=== PATIENT | female | born 1955 | race Caucasian/White ===

== ENCOUNTER 2022-10-17 11:32 | Outpatient (REF) | payer OTHER, SELFPAY ==
--- NOTE | ~2022-10-17 | XR_ITS ---
EXAMINATION: XR hand LT min 3V, XR hand RT min 3V CLINICAL INFORMATION: Pain COMPARISON: None TECHNIQUE: 3 views of the bilateral hands FINDINGS: RIGHT HAND: No fracture or dislocation. Joint spaces are maintained. No cortical erosion. Soft tissues are unremarkable. LEFT HAND: No fracture or dislocation. Joint spaces are maintained. No cortical erosion. Soft tissues are unremarkable. XR/XR hand RT min 3V IMPRESSION: No acute osseous abnormality.
--- NOTE | ~2022-10-17 | XR_ITS ---
EXAMINATION: XR BILATERAL KNEES CLINICAL INFORMATION: Reason for Exam CHRONIC PAIN COMPARISON: None TECHNIQUE: 3 views of the bilateral knees FINDINGS: RIGHT KNEE: No acute fracture or dislocation. Mild to moderate degenerative changes of the knee with borderline loss of medial compartment joint space and quadriceps tendon enthesopathy. No joint effusion. Soft tissues are unremarkable. LEFT KNEE: No acute fracture or dislocation. Mild to moderate degenerative changes of the knee with borderline loss of medial compartment joint space and quadriceps tendon enthesopathy. No joint effusion. Soft tissues are unremarkable. XR/XR knee LT 3V IMPRESSION: * No acute osseous abnormality. * Mild to moderate degenerative changes of the knees.
--- NOTE | ~2022-10-17 | XR_ITS ---
EXAMINATION: XR LUMBOSACRAL SPINE CLINICAL INFORMATION: Reason for Exam LOW BACK PAIN RT SIDED SCIATICA COMPARISON: None TECHNIQUE: 3 views of the lumbar spine FINDINGS: 5 nonrib-bearing lumbar-type vertebral bodies. Vertebral body heights are maintained. Alignment is maintained. Multilevel degenerative disc disease worst at L5-S1 where there is mild to moderate loss of disc space height and facet arthropathy. Atherosclerotic calcifications of the abdominal aorta. XR/XR lumbar spine 2-3V IMPRESSION: * Mild to moderate spondylosis of the lumbar spine, as above detailed. * No significant spondylolisthesis.
--- NOTE | ~2022-10-17 | XR_ITS ---
EXAMINATION: XR BILATERAL KNEES CLINICAL INFORMATION: Reason for Exam CHRONIC PAIN COMPARISON: None TECHNIQUE: 3 views of the bilateral knees FINDINGS: RIGHT KNEE: No acute fracture or dislocation. Mild to moderate degenerative changes of the knee with borderline loss of medial compartment joint space and quadriceps tendon enthesopathy. No joint effusion. Soft tissues are unremarkable. LEFT KNEE: No acute fracture or dislocation. Mild to moderate degenerative changes of the knee with borderline loss of medial compartment joint space and quadriceps tendon enthesopathy. No joint effusion. Soft tissues are unremarkable. XR/XR knee RT 3V IMPRESSION: * No acute osseous abnormality. * Mild to moderate degenerative changes of the knees.
--- NOTE | ~2022-10-17 | XR_ITS ---
EXAMINATION: XR hand LT min 3V, XR hand RT min 3V CLINICAL INFORMATION: Pain COMPARISON: None TECHNIQUE: 3 views of the bilateral hands FINDINGS: RIGHT HAND: No fracture or dislocation. Joint spaces are maintained. No cortical erosion. Soft tissues are unremarkable. LEFT HAND: No fracture or dislocation. Joint spaces are maintained. No cortical erosion. Soft tissues are unremarkable. XR/XR hand LT min 3V IMPRESSION: No acute osseous abnormality.
== END 2022-10-17 11:33 | disposition home or self-care (01) ==
LOC: HO.XRAY 11:32
PROVIDERS: PCP Internal Medicine; Visit Provider Family Medicine
DX: M25.561 Pain in right knee (principal); M25.562 Pain in left knee; G89.29 Other chronic pain; M54.41 Lumbago with sciatica, right side; M79.641 Pain in right hand; M79.642 Pain in left hand
CPT/HCPCS: 72100; 73130; 73562

== ENCOUNTER 2022-12-14 14:44 | Outpatient (REF) | payer OTHER, SELFPAY ==
--- NOTE | ~2022-12-14 | XR_ITS ---
EXAMINATION: XR KNEE AP STANDING CLINICAL INFORMATION: Pain COMPARISON: Previous x-ray from September 2022 TECHNIQUE: AP bilateral standing view of the knees was obtained. FINDINGS: Bone alignment is normal. No fracture or dislocation. Mild bilateral medial femoral tibial joint space narrowing.. Normal soft tissues. XR/XR knee standing BI IMPRESSION: Mild medial joint space narrowing bilaterally.
== END 2022-12-14 14:45 | disposition home or self-care (01) ==
LOC: HO.HOSX 14:44
PROVIDERS: Visit Provider Physician Assistant
DX: M23.91 Unspecified internal derangement of right knee (principal); M23.92 Unspecified internal derangement of left knee; M54.16 Radiculopathy, lumbar region
CPT/HCPCS: 20610; 73565; 99202; J1040

== ENCOUNTER 2023-02-02 10:48 | Outpatient (REF) | payer OTHER, SELFPAY ==
--- NOTE | ~2023-02-02 | MM_ITS ---
EXAMINATION: MM SCREENING DIGITAL BREAST TOMOSYNTHESIS, BILATERAL CLINICAL INFORMATION: Screening. Asymptomatic. Prior history reduction mammoplasty. Benign right stereotactic biopsy 08/02/2016. The lifetime risk of breast cancer based on the Tyrer-Cuzick Model is 5%. COMPARISON: Mammography: 04/19/2018, 01/31/2017, 08/02/2016, 07/05/2016 TECHNIQUE: Digital breast tomosynthesis is performed in both the craniocaudal and mediolateral oblique views along with computer-aided detection (CAD). Synthesized 2D images are generated from the tomosynthesis. FINDINGS: There are scattered areas of fibroglandular density (ACR BI-RADS breast composition Category b). There is minor scarring and some scattered benign round rim predominantly dermal calcifications lower breast consistent with the reduction mammoplasty. There is a biopsy clip marker again seen mid upper outer quadrant right breast adjacent to a small stable nodule (complex fibroadenoma with benign proliferative changes and pathology). Scattered small fibronodular densities are similar to prior exams. No significant mass. No architectural abnormality. The axilla are unremarkable. MM/MM tomosynthesis screening BI IMPRESSION: No mammographic evidence of malignancy. ASSESSMENT: BI-RADS 2: Benign RECOMMENDATION: Routine annual mammography screening. This patient's information was entered into a reminder system with a target due date for their next mammogram.
== END 2023-02-02 10:49 | disposition home or self-care (01) ==
LOC: HO.MAMMO 10:48
PROVIDERS: PCP Internal Medicine; Visit Provider Internal Medicine
DX: Z12.31 Encounter for screening mammogram for malignant neoplasm of breast (principal)
CPT/HCPCS: 77063; 77067

== ENCOUNTER 2023-08-15 10:48 | Outpatient (REF) | payer OTHER, SELFPAY ==
[2023-08-15 12:14] LABS: Cholesterol 197 mg/dL (<200); HDL Cholesterol 42 mg/dL (>40); LDL Cholesterol Calculated 99 mg/dL (<100); Triglycerides 280 mg/dL (<150)
[2023-08-15 14:14] LABS: Reflex LDLD? No
== END 2023-08-15 10:49 | disposition home or self-care (01) ==
LOC: HO.HHCL 10:48
PROVIDERS: Visit Provider Internal Medicine
DX: E78.2 Mixed hyperlipidemia (principal); E03.9 Hypothyroidism, unspecified
CPT/HCPCS: 36415; 80061; 84443

== ENCOUNTER 2023-10-03 10:51 | Outpatient (AMB) | payer OTHER, SELFPAY ==
--- NOTE | 2023-10-03 10:57 | A.OFFVIS_ITS ---
Intake Vital Signs 10/03/23 11:07 Height 5 ft Weight 220 lb BMI 43.0 BP 112/64 Blood Pressure Location Lt brachial Position Sitting Pulse 88 Intake Visit Reasons: Colonoscopy Screening Intake Note: Patient new consult for 2nd pre colonoscopy screening. Patient cc: constipation on and off. Denies any other GI issues. Wind Energy Technician Required: No Accompanied by: Self / Same As Patient Allergies morphine [MORPHINE] Allergy (Unknown, Verified 10/03/23 10:56) ANAPHYLAXIS HPI Colonoscopy Screening HPI Details 68 year old? female with past medical hi story of hypertension, hyperlipidemia, hypothyroidism, vertigo, asthma is here today for pre colonoscopy screening.? Patient was sent to us by her PCP.? Her last colonoscopy was in June of 2018, multiple polyps found. Tubular adenoma found. ? Patient denies any gastrointestinal symptoms in the past or at present.? Patient denies any family history of colorectal cancer.? Denies history of difficulty with sedation or anesthesia in the past.? Negative for history of sleep apnea.? Denies any history of cardiac, renal, pulmonary, or hepatic disease.??Patient has a history of asthma and is using her EF inhaler as needed. No history of infectious? diseases like hepatitis A, B, C, HIV or tuberculosis.? Patient is not on any anticoagulation therapy. [facility] Medical History (Updated 10/03/23 @ 11:16 by Kelli Currie [facility]) Vertigo Asthma Hypercholesteremia Hypothyroidism (acquired) HTN (hypertension) Surgical History (Updated 10/03/23 @ 11:11 by Kalyn Hurst) Hx of bilateral breast reduction surgery Hx of section Social History (Updated 10/03/23 @ 10:58 by Kalyn Hurst) Household Members: Family Patient Tobacco Use Status: Former Tobacco user Current occupational status: unemployed Review of Systems Const Denies weight gain and Denies weight loss ENT Reports no additional complaints, Denies dysphagia and Denies odynophagia Card Reports no additional complaints Resp Reports no additional complaints GI Denies abdominal pain, Denies belching, Denies melena, Denies bloating, Denies change in bowel habits, Reports constipation (Occasional), Denies dysphagia, Denies excessive flatus, Denies dyspepsia, Denies heartburn, Denies diarrhea, Denies loose stools, Denies nausea, Denies odynophagia and Denies vomiting Reports no additional complaints Musc Reports no additional complaints Neuro Reports no additional complaints Psych Reports no additional complaints Endo Reports no additional complaints Physical Exam Vital Signs: Last Vital Signs Pulse 88 10/03/23 11:07 BP 112/64 10/03/23 11:07 BMI result Body Mass Index 43.0 Const General: healthy appearing, no acute distress and well developed Nutritional Appearance: well nourished Orientation/consciousness: patient oriented x3 Resp Effort & Inspection: normal respiratory effort, able to speak in complete sentences, no tracheal deviation and symmetric chest movement Auscultation: clear to auscultation bilaterally Cardio Rate: regular rate GI Inspection: Yes normal to inspection and No distended Palpation (GI): Soft to palpation, not firm, nontender and No hepatosplenomegaly present Auscultation: normal bowel sounds General: Yes no CVA tenderness Back/Spine/Pelvis Back: no CVA tenderness Skin General skin exam: elasticity normal, turgor normal and dry skin Neuro General: patient oriented x3 Psych Appearance: grossly normal Mental Status: mental status grossly normal Assessment & Plan Assessment & Plan (1) Screen for colon cancer: Code(s): Z12.11 - Encounter for screening for malignant neoplasm of colon (2) Constipation: Code(s): K59.00 - Constipation, unspecified Qualifiers: Constipation type: slow transit constipation Qualified Code(s): K59.01 - Slow transit constipation Plan Patient denies any GI, cardiac or respiratory symptoms.? Patient however does reports occasional constipation will send script for stool softener. Patient was encouraged to increase fluid intake and activity to promote better bowel motility. Denies any issues with anesthesia in the past.? Denies any history of sleep apnea.? No history infectious diseases in the past or present.? Not on any anticoagulation therapy.? No family or personal history of colon cancer. History of tubular adenoma on colonoscopy in June of 2018.? Patient denies melena, hematochezia, unintentional weight loss or ribbon like stools.? Patient has asthma and was using Flovent only as needed. Patient was instructed to use flovent twice a day as ordered and only use albuterol as needed. Patient can bring albuterol inhaler with her. Discussed at length the pre-procedure,? prep, diet & medications as well as what to expect prior, during and after the procedure.?? Stressed the importance of good bowel prep. ?Recommended the use of Vaseline or Calmoseptine OTC & baby wipes with bowel movements to promote comfort.? ?Patient verbalizes understanding and agrees to plan of care.? She was given the opportunity to ask questions and all questions answered.? We will see her after the procedure.? Medications: New polyethylene glycol 3350 (Miralax) As directed by gastroenterology department at [facility] 238 grams PO ONCE 238 grams 0RF Z12.11 - Encounter for screening for malignant neoplasm of colon bisacodyl (Dulcolax (bisacodyl)) take 4 tabs at noon the day before your colonoscopy 20 mg (4 x 5 mg) PO ONCE 1 day 4 tabs 0RF Z12.11 - Encounter for screening for malignant neoplasm of colon docusate sodium 100 mg PO DAILY 30 caps 3RF K59.00 - Constipation, unspecified Coding Level of Care Code New Pt Level 3 (47883) Diagnoses Screen for colon cancer Z12.11 Slow transit constipation K59.01 Constipation type: slow transit constipation Time Spent (min) 40 Comment 30 minutes spent with patient and additional 10 minutes spent reviewing her records
[2023-10-03 11:07] VITALS: BP 112/64; PULSE 88; BMI 43.0
== END 2023-10-03 12:44 | disposition home or self-care (01) ==
PROVIDERS: PCP Internal Medicine; Visit Provider Nurse Practitioner Family
DX: K59.01 Slow transit constipation (principal); Z12.11 Encounter for screening for malignant neoplasm of colon; Z86.010 Personal history of colon polyps
CPT/HCPCS: 99203

== ENCOUNTER → 2023-10-03 10:51 | Outpatient (BNVA) | payer OTHER, SELFPAY | PROVIDERS: PCP Internal Medicine; Visit Provider Nurse Practitioner Family | DX: Z12.11 Encounter for screening for malignant neoplasm of colon (principal); K59.01 Slow transit constipation | CPT/HCPCS: 99202 ==

== ENCOUNTER 2024-04-25 10:54 | Outpatient (REF) | payer OTHER, SELFPAY ==
--- NOTE | ~2024-04-25 | XR_ITS ---
EXAMINATION: XR ANKLE, RIGHT CLINICAL INFORMATION: Right ankle pain, sprain COMPARISON: None available. TECHNIQUE: AP, lateral, and mortise views of the right ankle. FINDINGS: No acute fracture or malalignment. The ankle mortise is preserved. Lateral soft tissue swelling. XR/XR ankle RT min 3V IMPRESSION: Lateral soft tissue swelling with no fracture. Electronically signed by: José Manuel Motta MD 05/01/2024 11:25 AM EDT
== END 2024-04-25 10:55 | disposition home or self-care (01) ==
LOC: HO.HHCX 10:54
PROVIDERS: Visit Provider Internal Medicine
DX: S93.491A Sprain of other ligament of right ankle, initial encounter (principal)
CPT/HCPCS: 73610

== ENCOUNTER 2024-08-04 22:26 | Emergency (ER) | payer OTHER, SELFPAY ==
--- NOTE | ~2024-08-04 | XR_ITS ---
EXAMINATION: XR CHEST CLINICAL INFORMATION: SOB COMPARISON: January 28, 2019. TECHNIQUE: 2 views of the chest were obtained. FINDINGS: The cardiomediastinal silhouette is stable. There are linear opacities at both lung bases. The lungs are otherwise clear. There are no significant pleural effusions. The bony structures and the soft tissues are unremarkable. 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 No other significant abnormality seen. Electronically signed by: Arron Matthew MD 08/05/2024 12:46 AM [facility]
--- NOTE | 2024-08-04 22:36 | ECG_ITS ---
Test Reason : SOB Blood Pressure : / mmHG Vent. Rate : 080 BPM Atrial Rate : 080 BPM P-R Int : 206 ms QRS Dur : 096 ms QT Int : 398 ms P-R-T Axes : 042 013 081 degrees QTc Int : 459 ms Normal sinus rhythm Incomplete right bundle branch block Nonspecific ST abnormality Abnormal ECG When compared with ECG of 12-NOV-2017 18:04, No significant change was found Referred By: Generic ED Physician Electronically Signed By:ALYCIA HINES MD
[2024-08-04 22:47] VITALS: BP 148/65; BP 150/70; PULSE 79; PULSE 82; RESP 14; TEMP 36.9; O2SAT 93; O2SAT 96; BMI 35.4
[2024-08-04 22:48] LABS: Basophils Absolute Auto 0.1 X10*3/uL (0.0-0.2); Basophils Percent Auto 0.5 % (0-2); Lymphocytes Percent Auto 36.4 % (20-40); Monocytes Percent Auto 5.9 % (2-11); SCAN SMEAR FLAG 1
[2024-08-04 22:52] LABS: VBG Base Excess 2.9 mmol/L; VBG HCO3 28 mmol/L (22-26); VBG pCO2 48 mmHg; VBG pH 7.37 (7.32-7.43); VBG pO2 64 mmHg
--- NOTE | 2024-08-04 22:52 | ED.GENADULT ---
HPI - General Adult General Chief complaint: Dyspnea Stated complaint: asthma exacerbation on duo neb Time Seen by Provider: 08/04/24 22:52 History of Present Illness ED Provider: Joni BANSAL narrative: The patient is a 69-year-old female with a history of asthma. She has been feeling increasing respiratory symptoms over the last 5 days. She has had increasing cough and wheezing. She is not certain if she has had a fever but she has had some episodes of sweats. She lives on the 3rd floor. Today she had to go down to the 1st floor to meet someone of the door. She then tried to go back up to her apartment on the 3rd floor but by the time she got to the 2nd floor she was so short of breath she had to knock on someone's apartment on the 2nd floor. They called an ambulance and she was brought to the hospital. She received a bronchodilator treatment from paramedics with improvement in her symptoms. She says that after going up the flight of stairs to the 2nd floor she was extremely short of breath and was afraid that she would not to be able to breathe at all. Related Data Home Medications ?Medication ?Instructions ?Recorded ?Confirmed amlodipine 5 mg tablet 5 mg PO DAILY 12/14/22 cetirizine 10 mg tablet 10 mg PO DAILY PRN allergies 12/14/22 fluticasone propionate 220 2 puff inhalation BID 12/14/22 mcg/actuation HFA aerosol inhaler (Flovent HFA) fluticasone propionate 50 spray intranasal 12/14/22 mcg/actuation nasal spray,suspension ketotifen fumarate 0.025 % (0.035 0 drp ophthalmic (eye) 12/14/22 %) eye drops levothyroxine 88 mcg tablet 88 mcg PO DAILY 12/14/22 meclizine 25 mg tablet 25 mg PO TID PRN 12/14/22 simvastatin 20 mg tablet 20 mg PO BEDTIME 12/14/22 venlafaxine 75 mg capsule,extended 75 mg PO DAILY 12/14/22 release 24 hr Previous Rx's ?Medication ?Instructions ?Recorded bisacodyl 5 mg tablet,delayed 20 mg (4 x 5 mg) PO ONCE 1 day #4 10/03/23 release (Dulcolax (bisacodyl)) tabs polyethylene glycol 3350 17 238 g PO ONCE #238 grams 10/03/23 gram/dose oral powder (Miralax) docusate sodium 100 mg capsule 100 mg PO DAILY #30 caps 02/16/24 cefuroxime axetil 500 mg tablet 500 mg PO BID #14 tabs 08/05/24 prednisone 20 mg tablet 20 mg PO DAILY #12 tabs 08/05/24 Allergies Allergy/AdvReac Type Severity Reaction Status Date / Time morphine [MORPHINE] Allergy Unknown ANAPHYLAXIS Verified 08/04/24 22:50 Review of Systems Review of Systems: Yes all other systems are reviewed and are negative [facility] Past Medical History Medical History (Updated 08/05/24 @ 02:26 by Neeraj Quinones MD) Vertigo Asthma Hypercholesteremia Hypothyroidism (acquired) HTN (hypertension) Surgical History (Updated 10/03/23 @ 11:11 by Kalyn Hurst) Hx of bilateral breast reduction surgery Hx of section Social History Social History (Updated 10/03/23 @ 10:58 by Kalyn Hurst) Household Members: Family Patient Tobacco Use Status: Former Tobacco user Smoked in Last 30 Days: Yes Use of substances other than those prescribed or required for medical reasons: No Advance Directives: No Advance Directives Information Provided: Yes Do you have a plan to hurt others: No Plan Current occupational status: unemployed Physical Exam ED Vital Signs: Vital Signs - 24 hr 08/04/24 22:47 08/04/24 23:11 08/05/24 00:29 Temperature 98.4 F 98.0 F Pulse Rate 79 75 86 Respiratory Rate 14 18 23 H Blood Pressure 148/65 H 155/81 H Pulse Oximetry 96 93 Oxygen Delivery Method Room Air Room Air 08/05/24 02:00 08/05/24 02:05 Temperature 98.1 F Pulse Rate 89 86 Respiratory Rate 19 20 Blood Pressure 142/72 H Pulse Oximetry 92 Oxygen Delivery Method Room Air BMI result Body Mass Index 35.4 Const Other: The patient is a 69-year-old woman who was awake and alert. She does not appear in obvious respiratory distress at this point. HENMT Head: Yes normal to inspection Face and sinus: Yes normal facial exam Mouth: Normal oral and palatal mucosa present and moist mucous membranes Eyes General: appearance normal, both eyes and all related structures Neck Neck: Yes full ROM and Yes no JVD Resp Other: Decreased air entry bilaterally. Slight inspiratory and expiratory wheezes bilaterally. Cardio Rate: regular rate Rhythm: regular rhythm Heart sounds: S1 normal heart sound present and S2 normal heart sound present GI Other: Abdomen is soft and nontender Skin Other: Skin is pale and dry and unremarkable Neuro Other: The patient is awake and alert with a normal mental status. Cranial nerves grossly intact. She moves her extremities normally and seems grossly neurologically intact. Extrem Other: No peripheral edema. No calf swelling or tenderness. No calf asymmetry. Medications Administered Discontinued Medications Generic Name Dose Route Start Last Admin Trade Name Kelsea PRN Reason Stop Dose Admin Acetaminophen 975 mg 08/05/24 01:09 08/05/24 01:13 Acetaminophen 325 Mg Tablet PO 08/05/24 01:10 975 mg ONCE ONE Administration Albuterol Sulfate 2.5 mg/ 0 mg 08/04/24 22:58 08/04/24 23:09 Albuterol/Ipratropium 3 ml INHALE 08/04/24 22:59 1 dose ONCE ONE Administration Albuterol Sulfate 2.5 mg/ 0 mg 08/05/24 01:08 08/05/24 02:05 Albuterol/Ipratropium 3 ml INHALE 08/05/24 01:09 1 dose ONCE ONE Administration Prednisone 60 mg 08/04/24 23:00 08/04/24 23:22 Prednisone 20 Mg Tablet PO 08/04/24 23:01 60 mg ONCE ONE Administration Medical Decision Making Medical Decision Making [facility] Narrative: The patient is a 69-year-old woman who presents with an exacerbation of asthma. She had inspiratory and expiratory wheezes bilaterally. She was treated with prednisone and bronchodilator updraft treatments. She was observed. She felt better and was able to sleep. When she fell asleep her oxygen saturation was 91% on room air. The patient was also complaining of urinary symptoms and has a mildly positive urinalysis. She will be started on cefuroxime. The patient is therefore will be given prescriptions for prednisone and cefuroxime. She has albuterol for her nebulizer machine at home. She should contact her PCP tomorrow for a follow up appointment this week. She should return to the emergency room if worse. Lab Data 08/04/24 22:41 08/04/24 22:41 Labs: Lab Results 08/04/24 08/04/24 08/05/24 Range/Units 22:41 22:45 01:05 WBC 16.5 H (4.8-10.8) X10*3/uL RBC 4.52 (4.20-5.50) X10*6/uL Hgb 13.1 (12.0-16.0) g/dl Hct 40.4 (37.0-47.0) % MCV 89.4 (80.0-98.0) fL MCH 29.0 (27.0-33.0) pg MCHC 32.4 (31.0-35.0) g/dl RDW 14.6 (11.0-16.0) % Plt Count 247 (160-400) X10*3/uL MPV 11.6 (9.4-12.3) fL Immature Gran % (Auto) 0.4 (0.0-0.4) % Neut % (Auto) 55.3 (45-73) % Lymph % (Auto) 36.4 (20-40) % [place] % (Auto) 5.9 (2-11) % Eos % (Auto) 1.5 (0-4) % Baso % (Auto) 0.5 (0-2) % Lymph # (Auto) 6.0 H (1.2-4.9) X10*3/uL [place] # (Auto) 1.0 (0.1-1.2) X10*3/uL Eos # (Auto) 0.2 (0.0-0.4) X10*3/uL Baso # (Auto) 0.1 (0.0-0.2) X10*3/uL Abs Immat Gran (auto) 0.06 H (0.00-0.03) X10*3/uL Absolute Neuts (auto) 9.2 H (2.0-8.3) x10*3/uL Absolute Nucleated RBC 0.000 (0.0-0.012) X10*3/uL Nucleated RBC % (auto) 0.0 (0.0-0.2) /100WBC Smear Tech's Comments VERIFIED VBG pH 7.37 (7.32-7.43) VBG pCO2 48 mmHg VBG pO2 64 mmHg VBG HCO3 28 H (22-26) mmol/L VBG O2 Saturation 89.0 % VBG Base Excess 2.9 mmol/L Sodium 140 (135-145) mmol/L Potassium 3.8 (3.3-5.1) mmol/L Chloride 104 (96-108) mmol/L Carbon Dioxide 25 (22-29) mmol/L Anion Gap 15 (12-20) BUN 14 (9-16) mg/dL Creatinine 0.81 (0.5-1.4) mg/dL Estim Creat Clear Calc 72.0 Estimated GFR > 60 Random Glucose 129 H (60-115) mg/dL Calcium 9.5 (8.4-10.2) mg/dL Total Bilirubin 0.2 (0.0-1.0) mg/dL AST 50 H (5-31) U/L ALT 80 H (0-31) U/L Alkaline Phosphatase 100 (39-117) U/L Total Protein 7.2 (6.5-8.0) g/dL Albumin 4.2 (3.5-5.0) g/dL Urine Color Yellow Urine Appearance Clear Urine pH 5.0 (5.0-9.0) Ur Specific Ava <= 1.005 (1.005-1.025) Urine Protein Negative (Neg-Trace) mg/dL Urine Glucose (UA) Negative (Negative) mg/dL Urine Ketones Negative (Negative) mg/dL Urine Blood Negative (Negative) Urine Nitrite Negative (Negative) Ur Leukocyte Esterase Small (1+) H (Negative) Urine RBC 0-2 (0-2) /HPF Urine WBC 11-20 H (0-5) /HPF Ur Squamous Epith Cells 3-5 (0-2) /HPF Urine Bacteria None Seen (None Seen) Hyaline Casts 0-2 (0-2) /LPF COVID-19 (LESLIE) Negative (Negative) COVID-19 Clin Com See Note Influenza Type A (CLARITA) Negative (Negative) Influenza Type B (CL[facility]ITA) Negative (Negative) Influenza A & B Note See Note Discharge Plan Discharge Clinical Impression: Acute asthma exacerbation, Urinary tract infection Patient Disposition: Home, Self-Care Instructions: Asthma (ED), Urinary Tract Infection in Women (ED) Additional Instructions: You were given a dose of prednisone in the emergency room today. Please take your next dose of prednisone tomorrow, on Monday. Then take a dose daily until done. You were also started on the antibiotics cefuroxime. Please take this medication 2 times a day as prescribed until done. Use your albuterol machine every 4 hours as needed. You should probably do this regularly for the next couple of days. I would recommend giving yourself a treatment when you get home before you go to sleep. Please contact your primary care doctor's office in the morning for a follow up appointment this week. If you feel significantly worse at any time return to the emergency room. Call 911 if you are feeling very short of breath. Prescriptions: New prednisone 20 mg tablet 20 mg PO DAILY Qty: 12 0RF Rx Instructions: Take 3 tablets by mouth daily for 2 days. Then take 2 tablets by mouth daily for 3 days. cefuroxime axetil 500 mg tablet 500 mg PO BID Qty: 14 0RF No Action docusate sodium 100 mg capsule 100 mg PO DAILY Qty: 30 3RF levothyroxine 88 mcg tablet 88 mcg PO DAILY simvastatin 20 mg tablet 20 mg PO BEDTIME meclizine 25 mg tablet 25 mg PO TID PRN fluticasone propionate 50 mcg/actuation spray,suspension intranasal fluticasone propionate [Flovent HFA] 220 mcg/actuation HFA aerosol inhaler 2 puff inhalation BID amlodipine 5 mg tablet 5 mg PO DAILY ketotifen fumarate 0.025 % (0.035 %) drops 0 drp ophthalmic (eye) cetirizine 10 mg tablet 10 mg PO DAILY PRN (Reason: allergies) venlafaxine 75 mg capsule,extended release 24hr 75 mg PO DAILY bisacodyl [Dulcolax (bisacodyl)] 5 mg tablet,delayed release (DR/EC) 20 mg PO ONCE 1 Days Qty: 4 0RF Rx Instructions: take 4 tabs at noon the day before your colonoscopy polyethylene glycol 3350 [Miralax] 17 gram/dose powder 238 g PO ONCE Qty: 238 0RF Rx Instructions: As directed by gastroenterology department at [facility] Referrals: Radha Hankins MD [Primary Care Provider] - (Asthma exacerbation, UTI) Print Language: Kuwaiti
[2024-08-04 22:55] LABS: Venous Blood Gas Refer to POC result
[2024-08-04 23:04] LABS: Eosinophils Absolute Auto 0.2 X10*3/uL (0.0-0.4); Eosinophils Percent Auto 1.5 % (0-4); Hematocrit 40.4 % (37.0-47.0); Hemoglobin 13.1 g/dl (12.0-16.0); Imm Gran Abs Auto 0.06 X10*3/uL (0.00-0.03); Imm Gran Pct Auto 0.4 % (0.0-0.4); MANUAL DIFF FLAG SCAN; Mean Corpuscular HGB Conc 32.4 g/dl (31.0-35.0); Mean Corpuscular Volume 89.4 fL (80.0-98.0); Mean Platelet Volume 11.6 fL (9.4-12.3); Neutrophils Absolute Auto 9.2 x10*3/uL (2.0-8.3); Neutrophils Percent Auto 55.3 % (45-73); Platelet Count 247 X10*3/uL (160-400); Red Blood Count 4.52 X10*6/uL (4.20-5.50); Red Cell Distribution Width 14.6 % (11.0-16.0); White Blood Count 16.5 X10*3/uL (4.8-10.8)
[2024-08-04 23:08] LABS: SLIDE REVIEW VERIFIED
[2024-08-04 23:09] LABS: Albumin Level 4.2 g/dL (3.5-5.0); Anion Gap 15 (12-20); Aspartate Amino Transferase 50 U/L (5-31); Bilirubin Total 0.2 mg/dL (0.0-1.0); Blood Urea Nitrogen 14 mg/dL (9-16); Calcium 9.5 mg/dL (8.4-10.2); Carbon Dioxide 25 mmol/L (22-29); Chloride 104 mmol/L (96-108); Estimated Glomerular Filt Rate > 60; Glucose Random 129 mg/dL (60-115); Potassium 3.8 mmol/L (3.3-5.1); Sodium 140 mmol/L (135-145); Total Protein 7.2 g/dL (6.5-8.0)
[2024-08-04] MEDS: Albuterol Sulfate 2.5 MG, Albuterol/Iprat 2.5/0.5MG 3 ML 3 ML INHALE (23:09)
[2024-08-04 23:11] VITALS: PULSE 75; RESP 18; O2SAT 90
[2024-08-04 23:13] LABS: Alanine Aminotransferase 80 U/L (0-31); Alkaline Phosphatase 100 U/L (39-117)
[2024-08-04 23:16] LABS: COVID-19 Test Negative (Negative); IDNOW Serial# 08D9AD1C; IDNOW Serial# 152EDE1D; Influenza A Negative (Negative); Influenza B2 Negative (Negative)
[2024-08-04] MEDS: predniSONE 20 MG TABLET 60 MG PO (23:22)
[2024-08-05 00:29] VITALS: BP 155/81; PULSE 86; RESP 23; TEMP 36.7; O2SAT 93
[2024-08-05] MEDS: Acetaminophen 325 MG TABLET 975 MG PO (01:13)
[2024-08-05 01:18] LABS: Appearance Urine Clear; Color Urine Yellow; Glucose Urine UA Negative (Negative); Leukocyte Esterase Urine Small (1+) (Negative); Nitrite Urine Negative (Negative); Specific Gravity - Urine <= 1.005 (1.005-1.025); UMIC TRIGGER UACC YES; Urine Blood Negative (Negative); Urine Ketones Negative (Negative); Urine Protein Negative (Neg-Trace)
[2024-08-05 01:20] LABS: Bacteria Urine None Seen (None Seen); Hyaline Casts Urine 0-2 /LPF (0-2); RBC Urine 0-2 /HPF (0-2); UACC Culture Trigger YES
[2024-08-05 02:00] VITALS: BP 142/72; PULSE 89; RESP 19; TEMP 36.7; O2SAT 92
[2024-08-05 02:05] VITALS: PULSE 86; RESP 20; O2SAT 91
[2024-08-05] MEDS: Albuterol Sulfate 2.5 MG, Albuterol/Iprat 2.5/0.5MG 3 ML 3 ML INHALE (02:05)
[2024-08-05] MEDS: cefuroxime axetiL 500 MG TABLET PO (03:13)
[2024-08-05 03:22] VITALS: BP 142/72; PULSE 86; RESP 20; TEMP 36.7; O2SAT 92
== END 2024-08-05 03:23 | disposition home or self-care (01) ==
PROVIDERS: Emergency Provider Emergency Medicine; PCP Internal Medicine
DX: J45.901 Unspecified asthma with (acute) exacerbation (principal); N39.0 Urinary tract infection, site not specified; R06.00 Dyspnea, unspecified; R05.9 Cough, unspecified; R94.31 Abnormal electrocardiogram [ECG] [EKG]; Z79.899 Other long term (current) drug therapy; Z11.52 Encounter for screening for COVID-19
CPT/HCPCS: 36415; 71046; 80053; 81001; 82803; 85025; 87086; 87088; 87186; 87502; 87635; 93005; 94640; 99284; 99285

== ENCOUNTER → 2024-08-04 22:36 | Outpatient (BNV) | payer OTHER, SELFPAY | PROVIDERS: Emergency Provider Emergency Medicine; PCP Internal Medicine; Visit Provider Internal Medicine Cardiovascular Disease | DX: R94.31 Abnormal electrocardiogram [ECG] [EKG] (principal) | CPT/HCPCS: 93010 ==

== ENCOUNTER 2024-10-11 10:28 | Outpatient (REF) | payer OTHER, SELFPAY ==
--- OUTSIDE RECORDS SUMMARY | 2024-10-11 12:04 | XMS_ITS | Encounter Summary ---
Author Organization [employer] Address 75 [facility] 7t [place] [address] Care Team Providers Care Form Setter Steel Forms Name Role Phone Radha Hankins MD Primary Care Provider + Reason for Visit * Reason Onset Date Comments ER Follow-up 08/06/2024 Encounter Details Date Type Department Care Team ([facility] st Contact Info) Description 08/06/2024 Telephone [facility] MEDICINE [address] [place], [place] [phone] Radha Hankins MD [address] [place], [place] [phone] ER Follow-up Social History Tobacco Use Types [...] Phan to triage below. Confirms seen at [facility] ED for asthma dn UTI sx. Ptdx [...] 08/07/2024 9:30 AM Kalyn Noland MD MEDICINE [facility] ' Video visit offer not recorded Positive Triage Question: * Patient wants to be seen * All higher-acuity triage questions were negative Care Advice Discussed: * Continue Treatment * Reasons To Call Back - You become worse * Telephone Encounter - Brody Phan - 08/06/2024 10:01 AM EST Patient calling to report ED visit on : Date: 08/04/24 Hospital: [facility] Seen for: Asthma Attack Symptom: Cough Outcome: Talk to a nurse or provider within 15 minutes Reason: Any trouble breathing through the mouth documented in this encounter Plan of Treatment Upcoming Encounters Date Type Department Care Team (Late st Contact Info) Description 11/21/2024 10:30 AM EDT Office Visit [facility] MEDICINE [address] [place] [address] Radha Hankins MD [address] [place], [place] [phone] documented as of this encounter Visit Diagnoses Not on filedocumented in this encounter Additional Health Concerns Assessment Noted Time PHQ-9 Depression Total Score: 15 023 11:36 AM EDT documented as of this encounter Care Teams Form Setter Steel Forms Relationship Specialty Start Date End Date Radha Hankins MD [address] [place] [address] [phone] PCP - General Family Medicine 05/10/17 documented as of this encounter
--- OUTSIDE RECORDS SUMMARY | 2024-10-11 12:04 | XMS_ITS | Clinical Summary ---
Author Organization [employer] Address 75 [facility] 7t [place] [address] Care Team Providers Care Burial Vault Maker Name Role Phone Radha Hankins MD Primary [...] life style modifications, diet and referral to fulfillment specialist. Recommended to decrease soda and sugary [...] weight reduction I gave her information about [facility] weight reduction program. FU next appointment Screening [...] [facility] [address] [place] [address] Radha Haknins MD Essential hypertension 09/08/2024 Refill [facility] MED[facility] [address] [place] [address] Radha Hankins MD Allergic rhinitis, unspecified seasonality, unspecified trigger 08/30/2024 Telephone [facility] [address] [place] [address] Radha Hankins MD October recall 08/07/2024 9:30 AM EST Office Visit [facility] [address] [place] [address] Kalyn Walker MD Moderate persistent asthma with exacerbation (Primary Dx); Essential hypertension; Rash 08/07/2024 Travel 08/06/2024 Telephone [facility] MED[facility] [address] [place] [address] Radha Hankins MD ER Follow-up 08/05/2024 Orders Only GENERIC EXTERNAL DATA DEPARTMENT Provider, Generic External Data 08/04/2024 Orders Only [facility] External Provider, [facility] 08/04/2024 Refill [facility] [address] [place] [address] Radha Hankins MD 07/25/2024 Refill [facility] [address] [place] [address] Radha Hankins MD Chronic bilateral low back [...] Description 11/21/2024 10:30 AM EDT Office Visit [facility]INE [address] [place] [address] Radha Hankins MD 230 [place], [place] [phone] Health Maintenance Due Date Last Done Comments [...] (08/05/2024 1:05 AM EST) Color Urine Yellow [facility] Appearance Urine Clear [facility] PH 5.0 5.0 - 9.0 [facility] Glucose Urine UA Negative Negative mg/dL [facility] Urine Blood Negative Negative [facility] Specific [place] - Urine <=1.005 1.005 - 1.025 [facility] Urine Protein Negative Neg-Trace mg/dL [facility] Urine Ketones Negative Negative mg/dL [facility] Nitrite Urine Negative Negative [facility] Leukocyte Esterase Urine Small (1+)(A) Negative [facility] RBC Urine 0-2 0 - 2 /HPF [facility] Urine WBC 11-20(A) 0 - 5 /HPF [facility] Urine Squamous Epithelial Cell 3-5 0 - 2 /HPF [facility] Urine Bacteria None Seen None Seen [facility] Hyaline Casts, Urine 0-2 0 - 2 /LPF [facility] 08/05/2024 1:05 AM EST 08/05/2024 1:16 AM EST Narrative [facility] - 08/05/2024 1:24 AM EST [id number], Clean Catch us Generic External Data Provider LAB URINE ORDERAB LES Final Result [facility] [address] [place] [phone] * Culture, Urine, Routine (08/05/2024 12:00 AM EST) Urine Urine specimen obtained by clean catch procedure / Unknown 08/05/2024 08/05/2024 Comment:[facility] Narrative [facility] - 08/07/2024 7:43 AM EST Escherichia coli Quant > 100,000 cfu/mL Corynebacterium species No [facility] Standard methods for susceptibility testing not established. Quant 50,000 to 100,000 cfu/mL Escherichia coli: Ampicillin >=32(R) Escherichia coli: Cefazolin 4(S) Escherichia coli: Cefepime <=0.12(S) Escherichia coli: Ceftriaxone <=0.25(S) Escherichia coli: Ciprofloxacin 0.5(I) Escherichia coli: Gentamicin <=1(S) Escherichia coli: Nitrofurantoin <=16(S) Escherichia coli: Trimethoprim/Sulfamethoxazole <=20(S) Specimen Source: Urine clean catch us Generic External Data Provider LAB MICROBIOLOGY - GENERAL ORDERABLES Final Result [facility] [address] [place] [phone] [phone] * XR Chest 2 Views (08/04/2024 11:02 PM EST) Anatomical Region Laterality Modality Chest Radiographic Becca ging 08/04/2024 11:0 2 PM EST Narrative 08/05/2024 12:49 AM EST ? [facility] ?[address] ?[place] [address] ?XRay Report ? Signed ? Patient: Apryl Phan ?MR#: [id number] ?? 9240 ? : 1955 ?Acct:[id number] ? Age/Sex: 69 / F ?ADM Date: 08/04/24 ? Loc: HO.ED ? Attending Dr: ? Ordering Physician: Neeraj Quinones MD ?? Date of Service: 08/04/24 ?? Procedure(s): XR chest 2V ?? Accession Number(s): [id number] ? cc: Radha Hankins MD; Neeraj Quinones [...] Linear opacities at both lung bases likely goodwill representative of ?? atelectasis. ? No other significant abnormality seen. ? Electronically signed by: ??Arron Matthew MD ??08/05/2024 12:46 AM EST RP ? Dictated By: ?Arron Matthew MD ? Signed By: ?<Electronically signed by Arron Matthew MD in OV> ?08/05/246 ? DD/ 01 ? TD/TT: 08/04/242305 ? Train Dispatcher: ? Procedure Note Donotuseinterpreter, Image - 08/05/[address] [address] XRay Report Signed Patient: Apryl PhanMR#: [id number] : 1955cct:[id number] Age/Sex: 69 / FADM Date: 08/04/24 Loc: HO.ED Attending Dr: Ordering Physician: Neeraj Quinones MD Date of Service: 08/04/24 Procedure(s): XR chest 2V Accession Number(s): [id number] cc: Radha Hankins MD; Neeraj Quinones MD [...] Linear opacities at both lung bases likely goodwill representative of atelectasis. No other significant abnormality seen. Electronically signed by: Arron Matthew MD 08/05/2024 12:46 AM EST Dictated By: Arron Matthew MD Signed By: <Electronically signed by Arron Matthew MD in OV> 08/05/246 DD/ 01 TD/TT: 08/04/242305 Train Dispatcher: [facility] External Provider IMG XR PROCEDURES Edited [...] 10:53 AM EST) Triglycerides 280(H) <150 mg/dL [facility] Comment:Desirable Triglyceri de: less than 150 mg/dLBorderline High Triglyceride 150-199 mg/dLHigh Triglyceride: 200-499 mg/dLVery High Triglyceride: greater than or equal to 5OO mg/dL Cholesterol 197 <200 mg/dL [facility] Comment:Desirable Cholestero l: less than 200 mg/dLBorderline High Cholesterol: 200-239 mg/dLHigh Cholesterol: greater than 239 mg/dL LDL Cholesterol Calculated 99 <100 mg/dL [facility] Comment:Desirable LDL: less than 100 mg/dLNear Optimal/Above Optimal LDL: 110- 129 mg/dLBorderline High LDL: 130-159 mg/dLHigh LDL: 160-189 mg/dLVery High LDL: greater than or equal to 190 mg/dL HDL Cholesterol 42 >40 mg/dL [facility] Comment:Desirable HDL: great er than 40 mg/dL Note: This HDL assay may give artificially low results in patients with liver disease. Blood 08/15/2023 10:5 3 AM EST 08/15/2023 11:16 AM EST us Radha Hankins MD LAB BLOOD ORDERABLES Fin al Result [facility] [address] [place] [phone] * BI Mammogram Screening Bilateral (02/02/2023 3:41 PM EDT) Anatomical Region Laterality Modality Breast Bilateral Mammography us Radha Hankins MD IMG BI PROCEDURES Final Result * (ABNORMAL) Colonoscopy (07/04/2018) Colonoscopy Abnormal( A) Normal Comment:repeat 5years us Historical Provider HEALTH MAINTENANCE Edited Result - Final from Last 3 Months or Most Recently Relevant to Health Maintenance Insurance [facility] Care Teams Burial Vault Maker Relationship Specialty Start Date End Date Radha Hankins MD [address] [place] [phone] PCP - General Family Medicine 05/10/17
--- OUTSIDE RECORDS SUMMARY | 2024-10-11 12:04 | XMS_ITS | Encounter Summary ---
Author Organization [facility] Address 75 [facility] 7t [place] [address] Care Team Providers Care Supervisor Leaf Spring Repair Name Role Phone Radha Hankins MD Primary Care Provider + Encounter Details Date Type Department Care Team (Late st Contact Info) Description 12/05/2022 Telephone [facility] MEDICINE [address] [place], [place] [phone] Sara John LPN Social History Tobacco Use [...] Description 11/21/2024 10:30 AM EDT Office Visit [facility] MEDICINE [address] [place] [phone] Radha Hankins MD [address] [place] [address] [phone] documented as of this encounter Visit Diagnoses Not on filedocumented in this encounter Care Teams Supervisor Leaf Spring Repair Relationship Specialty Start Date End Date Radha Hankins MD [address] [place] [phone] PCP - General Family Medicine 05/10/17 documented as of this encounter
--- OUTSIDE RECORDS SUMMARY | 2024-10-11 12:04 | XMS_ITS | Encounter Summary ---
Author Organization [employer] Address [address] [facility] 7t [place] [address] Care Team Providers Care Knife Finisher Name Role Phone Radha Hankins MD Primary Care Provider + Encounter Details Date Type Department Care Team (Late st Contact Info) Description 11/16/2022 Orders Only [facility] [address] [place] [address] Sheela Williamson LPN Social History Tobacco Use [...] Description 11/21/2024 10:30 AM EDT Office Visit [facility] MEDICINE [address] [place] [address] Radha Hankins MD [address] [place] [address] documented as of this encounter Visit Diagnoses Not on filedocumented in this encounter Care Teams Knife Finisher Relationship Specialty Start Date End Date Radha Hankins MD [address] [place] [address] PCP - General Family Medicine 05/10/17 documented as of this encounter
--- OUTSIDE RECORDS SUMMARY | 2024-10-11 12:04 | XMS_ITS | Encounter Summary ---
Author Organization [employer] Address 75 [facility] 7t [place] [address] Care Team Providers Care Neurodiagnostic Tech Name Role Phone Radha Hankins MD Primary Care Provider + Encounter Details Date Type Department Care Team (Late st Contact Info) Description 09/22/2022 Orders Only [facility] [address] [place] [address] Sheela Williamson LPN Social History Tobacco Use [...] Description 11/21/2024 10:30 AM EDT Office Visit [facility] MEDICINE [address] [place] [address] Radha Hankins MD [address] [place] [address] documented as of this encounter Procedures Procedure [...] EST Narrative 10/19/2022 5:13 PM EST ? [facility] ?[address] ?[place] [address] ?XRay Report ? Signed ? Patient: Apryl Phan ?MR#: [id number] ?? 9240 ? : 1955 ?Acct:[id number] ? Age/Sex: 67 / F ?ADM Date: 10/17/22 ? Loc: HO.XRAY ? Attending Dr: Sheela Crane DO ? Ordering Physician: Sheela Crane DO ?? Date of Service: 10/17/22 ?? Procedure(s): XR lumbar spine 2-3V ?? Accession Number(s): [id number] ? cc: Sheela Crane DO ? EXAMINATION: [...] OV> ?10/19/220 ? DD/ ? TD/TT: ? Steel Worker: ? Procedure Note Donotuseinterpreter, Image - 10/19/[address] [address] XRay Report Signed Patient: Bienvenido Phan#: [id number] 9240 : 1955cct:[id number] Age/Sex: 67 / FADM Date: 10/17/22 Loc: HO.XRAY Attending Dr: Sheela Crane DO Ordering Physician: Sheela Crane DO Date of Service: 10/17/22 Procedure(s): XR lumbar spine 2-3V Accession Number(s): [id number] cc: Sheela Crane DO EXAMINATION: XR LUMBOSACRAL [...] in OV> 10/19/22 1710 DD/ 1212 TD/TT: Steel Worker: us [facility] External Provider IMG XR PROCEDURES Final Result * XR Knee 3 Views Right (10/17/2022 12:12 PM EST) Anatomical Region Laterality Modality Lower Extremities, Knee Right Radiogra phic Imaging 10/17/2022 12:1 2 PM EST Narrative 10/19/2022 5:09 PM EST ? [facility] ?[address] ?[place] [address] ?XRay Report ? Signed ? Patient: Sylvester,Apryl ?MR#: [id number] ?? 9240 ? : 1955 ?Acct:[id number] ? Age/Sex: 67 / F ?ADM Date: 10/17/22 ? Loc: HO.XRAY ? Attending Dr: Sheela Crane DO ? Ordering Physician: Sheela Crane DO ?? Date of Service: 10/17/22 ?? Procedure(s): XR knee RT 3V ?? Accession Number(s): [id number] ? cc: Sheela Crane DO ? EXAMINATION: [...] ?10/19/22 1707 ? DD/ ? TD/TT: ? Steel Worker: ? Procedure Note Marilyn Bassett - 10/19/[address] [address] XRay Report Signed Patient: Apryl PhanMR#: [id number] : 7Acct:[id number] Age/Sex: 67 / FADM Date: 10/17/22 Loc: HO.XRAY Attending Dr: Sheela Crane DO Ordering Physician: Sheela Crane DO Date of Service: 10/17/22 Procedure(s): XR knee RT 3V Accession Number(s): [id number] cc: Sheela rCane DO EXAMINATION: XR BILATERAL KNEES CLINICAL INFORMATION: [...] in OV> 10/19/22 1707 DD/ 1212 TD/TT: Steel Worker: [facility] External Provider IMG XR PROCEDURES Final Result * XR Knee 3 Views Left (10/17/2022 12:12 PM EST) Anatomical Region Laterality Modality Lower Extremities, Knee Left Radiogra phic Imaging 10/17/2022 12:1 2 PM EST Narrative 10/19/2022 5:09 PM EST ? [facility] ?[address] ?[place] [address] ?XRay Report ? Signed ? Patient: Sylvester,Apryl ?MR#: [id number] ?? 9240 ? : 1955 ?Acct:[id number] ? Age/Sex: 67 / F ?ADM Date: 02/20/23 ? Loc: HO.XRAY ? Attending Dr: Sheela Crane DO ? Ordering Physician: Sheela Crane DO ?? Date of Service: 10/17/22 ?? Procedure(s): XR knee LT 3V ?? Accession Number(s): [id number] ? cc: Sheela Crane DO ? EXAMINATION: [...] 1707 ? DD/ 1212 ? TD/TT: ? Steel Worker: ? Procedure Note Kavonvyjavyrich, Image - 10/19/[address] [address] XRay Report Signed Patient: Bienvenido Phan#: [id number] : 1955cct:[id number] Age/Sex: 67 / FADM Date: 10/17/22 Loc: HO.SABINA Attending Dr: Sheela Crane DO Ordering Physician: Sheela Crane DO Date of Service: 10/17/22 Procedure(s): XR knee LT 3V Accession Number(s): [id number] cc: Sheela Crane DO EXAMINATION: XR BILATERAL [...] in OV> 10/19/22 1707 DD/ 1212 TD/TT: Steel Worker: [facility] External Provider IMG XR PROCEDURES Final Result * XR Hand 3+ Views Left (10/17/2022 12:12 PM EST) Anatomical Region Laterality Modality Upper Extremities, Hand Left Radiogra phic Imaging 10/17/2022 12:1 2 PM EST Narrative 10/19/2022 5:06 PM EST ? [facility] ?[address] ?[place] [address] ?XRay Report ? Signed ? Patient: Apryl Phan ?MR#: [id number] ?? 9240 ? : 1955 ?Acct:[id number] ? Age/Sex: 67 / F ?ADM Date: 10/17/22 ? Loc: HO.XRAY ? Attending Dr: Sheela Crane DO ? Ordering Physician: Sheela Crane DO ?? Date of Service: 10/17/22 ?? Procedure(s): XR hand LT min 3V ?? Accession Number(s): [id number] ? cc: Sheela Crane DO ? EXAMINATION: [...] 1703 ? DD/ 1212 ? TD/TT: ? Steel Worker: ? Procedure Note Donluz elena, Image - 10/19/[address] [address] XRay Report Signed Patient: Bienvenido Phan#: [id number] 9240 : 1955cct:[id number] Age/Sex: 67 / FADM Date: 10/17/22 Loc: CAROLYNE Attending Dr: Sheela Crane DO Ordering Physician: Sheela Crane DO Date of Service: 10/17/22 Procedure(s): XR hand LT min 3V Accession Number(s): [id number] cc: Sheela Crane DO EXAMINATION: XR hand [...] in OV> 10/19/22 1703 DD/ 1212 TD/TT: Steel Worker: [facility] External Provider IMG XR PROCEDURES Final Result * XR Hand 3+ Views Right (10/17/2022 12:12 PM EST) Anatomical Region Laterality Modality Upper Extremities, Hand Right Radiogra phic Imaging 10/17/2022 12:1 2 PM EST Narrative 10/19/2022 5:06 PM EST ? [facility] ?[address] ?[place] [address] ?XRay Report ? Signed ? Patient: Sylvester,Apryl ?MR#: [id number] ?? 9240 ? : 1955 ?Acct:[id number] ? Age/Sex: 67 / F ?ADM Date: 10/17/22 ? Loc: HO.XRAY ? Attending Dr: Sheela Crane DO ? Ordering Physician: Sheela Crane DO ?? Date of Service: 10/17/22 ?? Procedure(s): XR hand RT min 3V ?? Accession Number(s): [id number] ? cc: Sheela Crane DO ? EXAMINATION: [...] 1703 ? DD/ 1212 ? TD/TT: ? Steel Worker: ? Procedure Note Marilyn Bassett - 10/19/2022 [facility] [address] [facility] [place] [address] XRay Report Signed Patient: Bienvenido Phan#: [id number] : 1955cct:[id number] Age/Sex: 67 / FADM Date: 10/17/22 Loc: HOOSVALDO Attending Dr: Sheela Crane DO Ordering Physician: Sheela Crane DO Date of Service: 10/17/22 Procedure(s): XR hand RT min 3V Accession Number(s): [id number] cc: Sheela Crane DO EXAMINATION: XR hand [...] in OV> 10/19/22 1703 DD/ 1212 TD/TT: Steel Worker: [facility] External Provider IMG XR PROCEDURES Final Result documented in this encounter Visit Diagnoses Not on filedocumented in this encounter Care Teams Neurodiagnostic Tech Relationship Specialty Start Date End Date Radha Hankins MD [address] [place] [phone] PCP - General Family Medicine 05/10/17 documented as of this encounter
--- OUTSIDE RECORDS SUMMARY | 2024-10-11 12:04 | XMS_ITS | Encounter Summary ---
Author Organization [employer] Address 75 [facility] 7t [place] [address] Care Team Providers Care Dye House Vat Worker Name Role Phone Radha Hankins MD Primary Care Provider + Reason for Visit * Reason Onset Date Comments Appointment Request 04/10/2024 Encounter Details Date Type Department Care Team ([facility] st Contact Info) Description 04/10/2024 Telephone [facility] MEDICINE [address] [place], [place] [phone] Radha Hankins MD [address] [place], [place] [phone] Appointment Request Social History Tobacco Use Types [...] like a sooner appt than what the resume writer has offered documented in this encounter Plan of Treatment Upcoming Encounters Date Type Department Care Team (Late st Contact Info) Description 11/21/2024 10:30 AM EDT Office Visit [facility] MEDICINE [address] [place] [address] Radha Hankins MD [address] [place] [address] documented as of this encounter Visit Diagnoses Not on filedocumented in this encounter Additional Health Concerns Assessment Noted Time PHQ-9 Depression Total Score: 15 023 11:36 AM EDT documented as of this encounter Care Teams Dye House Vat Worker Relationship Specialty Start Date End Date Radha Hankins MD [address] [place], [place] [phone] PCP - General Family Medicine 05/10/17 documented as of this encounter
--- OUTSIDE RECORDS SUMMARY | 2024-10-11 12:04 | XMS_ITS | Encounter Summary ---
Author Organization [facility] Address 75 [facility] 7t [place] [address] Care Team Providers Care Cupola Patcher Helper Name Role Phone Radha Hankins MD Primary Care Provider + Encounter Details Date Type Department Care Team (Late st Contact Info) Description 02/14/2023 Abstract [facility] MEDICINE [address] [place], [place] [phone] Radha Hankins MD [address] [place], [place] [phone] Social History Tobacco Use Types Packs/Day Years [...] Description 11/21/2024 10:30 AM EDT Office Visit [facility] MEDICINE [address] [place], [place] [phone] Radha Hankins MD [address] [place], [place] [phone] documented as of this encounter Visit Diagnoses Not on filedocumented in this encounter Additional Health Concerns Assessment Noted Time PHQ-9 Depression Total Score: 15 12/23/ 023 11:36 AM EDT documented as of this encounter Care Teams Cupola Patcher Helper Relationship Specialty Start Date End Date Radha Hankins MD [address] [place] [phone] PCP - General Family Medicine 05/10/17 documented as of this encounter
--- OUTSIDE RECORDS SUMMARY | 2024-10-11 12:04 | XMS_ITS | Encounter Summary ---
Author Organization [employer] Address [address] [facility] 7t [place] [address] Care Team Providers Care Commercial Light Fixture Assembler Name Role Phone Radha Hankins MD Primary Care Provider + Reason for Visit * Reason Comments Med Refill Encounter Details Date Type Department Care Team (Late st Contact Info) Description 10/06/2024 Refill [facility] [address] [place], [place] [phone] Radha Hankins MD [address] [place], [place] [phone] Essential hypertension Social History Tobacco Use Types [...] Description 11/21/2024 10:30 AM EDT Office Visit [facility] MEDICINE [address] [place] [address] Radha Hankins MD [address] [place] [address] documented as of this encounter Visit Diagnoses Diagnosis Essential hypertension Unspecified essential hypertension documented in this encounter Additional Health Concerns Assessment Noted Time PHQ-9 Depression Total Score: 15 023 11:36 AM EDT documented as of this encounter Care Teams Commercial Light Fixture Assembler Relationship Specialty Start Date End Date Radha Hankins MD [address] [place] [phone] PCP - General Family Medicine 05/10/17 documented as of this encounter
--- OUTSIDE RECORDS SUMMARY | 2024-10-11 12:04 | XMS_ITS | Encounter Summary ---
Author Organization [employer] Address [address] [facility] 7t [place] [address] Care Team Providers Care Metal Buildings Assembler Name Role Phone Radha Hankins MD Primary Care Provider + Encounter Details Date Type Department Care Team (Late st Contact Info) Description 12/19/2022 Orders Only [facility] MED [facility] PEDS [address] [place], [place] [phone] Sheela Williamson LPN Social History Tobacco Use [...] Description 11/21/2024 10:30 AM EDT Office Visit [facility] MEDICINE [address] [place], [place] [phone] Radha Hankins MD [address] [place], [place] [phone] documented as of this encounter Visit Diagnoses Not on filedocumented in this encounter Care Teams Metal Buildings Assembler Relationship Specialty Start Date End Date Radha Hankins MD [address] [place] [address] PCP - General Family Medicine 05/10/17 documented as of this encounter
--- OUTSIDE RECORDS SUMMARY | 2024-10-11 12:04 | XMS_ITS | Encounter Summary ---
Author Organization [employer] Address [address] [facility] 7t [place] [address] Care Team Providers Care Longwall Shearer Operator Name Role Phone Radha Hankins MD Primary Care Provider + Encounter Details Date Type Department Care Team (Late st Contact Info) Description 10/20/2022 Orders Only [facility] CHC MED & PEDS [address], [place] [phone] Sheela Williamson LPN Social History Tobacco Use [...] Description 11/21/2024 10:30 AM EDT Office Visit [facility] MEDICINE [address] [place] [address] Radha Hankins MD [address] [place] [address] documented as of this encounter Visit Diagnoses Not on filedocumented in this encounter Care Teams Longwall Shearer Operator Relationship Specialty Start Date End Date Radha Hankins MD [address] [place] [address] PCP - General Family Medicine 05/10/17 documented as of this encounter
[2024-10-14 21:38] LABS: Class Alternaria alternata 0; Class Aspergillus fumigatus 0; Class Bermuda Grass 0; Class Birch 0; Class Cat Dander 0; Class Cladosporium herbarum 0; Class Cockroach 0; Class Common Ragweed 2; Class Cottonwood 0; Class Derm. pterony 0; Class Dermatophagoides farinae 0; Class Dog Dander 0; Class Elm 0; Class Maple Box Elder 0; Class Mountain Cedar 0; Class Mouse Urine Protein 0; Class Mugwort 0; Class Oak 0; Class Penicillium crysogenum 0; Class Rough Pigweed 0; Class Sheep Sorrel 0; Class Sycamore 0; Class Timothy Grass 0; Class Walnut Tree 0; Class White Ash 0; Class White Mulberry 0; D001 IgE D pteronyssinus <0.10 kU/L; D002 - IgE D farinae <0.10 kU/L; E001 - IgE Cat Dander <0.10 kU/L; E005 - IgE Dog Dander <0.10 kU/L; E072-IgE Mouse Urine <0.10 kU/L; G002 IgE Bermuda Grass <0.10 kU/L; G006 - IgE Timothy Grass <0.10 kU/L; I006-IgE Cockroach, German <0.10 kU/L; Immunoglobulin E 6 kU/L (<OR=114); M001 IgE Penicillium chrysogen <0.10 kU/L; M002 - IgE Cladosporium herbar <0.10 kU/L; M003 - IgE Aspergillus fumigat <0.10 kU/L; M006 - IgE Alternaria alternat <0.10 kU/L; T001 IgE Maple/Box Elder <0.10 kU/L; T003 IgE Common Silver Birch <0.10 kU/L; T006 - IgE Cedar, Mountain <0.10 kU/L; T007 - IgE Oak, White <0.10 kU/L; T008 IgE Elm, American <0.10 kU/L; T010 - IgE Walnut <0.10 kU/L; T011 - IgE Maple Leaf Sycamore <0.10 kU/L; T014 - IgE Cottonwood <0.10 kU/L; T015 - IgE Ash, White <0.10 kU/L; T070 - IgE White Mulberry <0.10 kU/L; W001 - IgE Ragweed, Short 0.78 kU/L; W006 - IgE Mugwort <0.10 kU/L; W014 IgE Pigweed, Common <0.10 kU/L; W018 IgE Sheep Sorrel <0.10 kU/L
== END 2024-10-11 10:29 | disposition home or self-care (01) ==
LOC: HO.LAB 10:28
PROVIDERS: PCP Internal Medicine; Visit Provider Internal Medicine Pulmonary Disease
DX: J45.909 Unspecified asthma, uncomplicated (principal); Z91.09 Other allergy status, other than to drugs and biological substances
CPT/HCPCS: 36415; 82785; 86003; 99202

== ENCOUNTER 2024-10-11 10:28 | Outpatient (AMB) | payer OTHER, SELFPAY ==
[2024-10-11 10:38] VITALS: BP 118/62; PULSE 84; O2SAT 94; BMI 44.7
--- NOTE | 2024-10-11 10:38 | A.OFFVIS_ITS ---
Vital Signs 10/11/24 10:38 Height 5 ft Weight 229 lb BMI 44.7 BP 118/62 Blood Pressure Location Rt brachial Position Sitting Pulse 84 Pulse Source Doppler Pulse Oximetry (%) 94 Oxygen Delivery Method Room Air Intake Visit Reasons: Asthma Allergies morphine [MORPHINE] Allergy (Unknown, Verified 10/11/24 10:44) ANAPHYLAXIS HPI HPI Asthma: Details: 69-year-old lady, active 10-15 pack-year smoker with underlying history of asthma since childhood, now suboptimally controlled on Flovent and albuterol MDI referred for pulmonary evaluation. Patient states that her asthma severity has been slowly increasing over the years. She does have significant environmental allergies. She does not have recent allergy testing. Her pulmonary function test shows restrictive ventilatory defect with some decrease in diffusion capacity. She denies exposure to industrial dusts. [facility] Medical History (Updated 10/11/24 @ 11:07 by Konstantin Luque MD) Vertigo Asthma Hypercholesteremia Hypothyroidism (acquired) HTN (hypertension) Surgical History (Updated 10/03/23 @ 11:11 by Kalyn Hurst) Hx of bilateral breast reduction surgery Hx of section Social History (Updated 10/11/24 @ 10:48 by Sheela Crowe Kaushik) Household Members: Family Patient Tobacco Use Status: Current everyday Tobacco user Tobacco use type: Cigarette Cigarettes Per Day: 5 Years Smoked: started age 19, Current occupational status: unemployed Review of Systems Const Denies daytime sleepiness, Denies excessive sweating, Denies fatigue, Denies fever(s), Denies lethargy, Denies malaise, Denies night sweats, Denies snoring and Denies weight loss Eyes Denies blurry vision and Denies itchy eyes ENT Denies nasal congestion, Denies post nasal drip, Denies sinus pain, Denies sinus pressure and Denies other ( Thrush) Card Denies chest pain, Denies pedal edema, Denies dyspnea, Denies orthopnea and Denies paroxysmal nocturnal dyspnea Resp Denies cough, Denies hemoptysis, Denies excessive phlegm production, Denies dyspnea, Denies snoring and Denies wheezing GI Denies abdominal pain and Denies heartburn Musc Denies myalgias, Denies arthralgias and Denies joint swelling Skin/Breast Denies rash Neuro Denies memory loss and Denies seizure-like activity Psych Denies abnormal sleep pattern, Denies anxiety and Denies memory loss Endo Denies excessive sweating, Denies fatigue and Denies heat intolerance Sam/Lymph Denies easy bruising Aller/Immun Denies itchy eyes, Denies seasonal rhinorrhea and Denies wheezing Physical Exam Vital Signs: Last Vital Signs Pulse 84 10/11/24 10:38 BP 118/62 10/11/24 10:38 Pulse Ox 94 10/11/24 10:38 Oxygen Delivery Method Room Air 10/11/24 10:38 BMI result Body Mass Index 44.7 Const General: no acute distress and alert Nutritional Appearance: obese Orientation/consciousness: Other orientation findings ( oriented) HEENT Head: Yes atraumatic Eyes General: appearance normal, both eyes and all related structures Sclerae: sclerae normal EOM: EOMs intact bilaterally Neck Neck: Yes supple Lymphatic: no lymphadenopathy noted Resp Effort & Inspection: normal respiratory effort and no use of accessory muscles Auscultation: clear to auscultation bilaterally Cardio Rate: regular rate Rhythm: regular rhythm Heart sounds: no gallops, no murmurs and no rubs Skin General skin exam: other ( warm) Extrem General: No clubbing, No cyanosis and No edema Assessment & Plan Assessment & Plan (1) Asthma: Code(s): J45.909 - Unspecified asthma, uncomplicated Category: Medical Plan: Underlying asthma suboptimally controlled on Flovent, will switch to Symbicort. Continue albuterol MDI. Pulmonary function test reviewed. (2) Environmental allergies: Code(s): Z91.09 - Other allergy status, other than to drugs and biological substances Category: Medical Plan: Underlying history of significant environmental allergies. Will obtain RAST and IgE level for further evaluation. Orders: Orders Resp Allergy Profile Region I Today Z91.09 - Other allergy status, other than to drugs and biological substances Medications: New budesonide-formoterol 160-4.5 mcg/actuation (Symbicort) 2 puffs inhalation BID 10.2 grams 6RF Coding Level of Care Code New Pt Level 4 (28386) Diagnoses Asthma J45.909 Environmental allergies Z91.09
--- OUTSIDE RECORDS SUMMARY | 2024-10-11 11:19 | XMS_ITS | Encounter Summary ---
Author Organization [employer] Address [address] [facility] 7t [place] [address] Care Team Providers Care Extraction Machine Operator Name Role Phone Radha Hankins MD Primary Care Provider + Encounter Details Date Type Department Care Team (Late st Contact Info) Description 11/16/2022 Orders Only [facility] MED & PEDS [address] [place] [address] Sheela Williamson LPN Social History Tobacco Use Types Packs/Day Years Used Date Smoking Tobacco: Every Day Cigarettes Passive Smoke Exposure: Current Smokeless Tobacco: Never Comments Unknown Sex and Gender Information Value Date Recorded Sex Assigned at Female 06/27/2022 10:17 AM EDT Legal Sex Female 10:17 AM EDT Gender Identity Female 06/27/2022 10:17 AM EDT Sexual Orientation Choose not to disclose 2021 10:17 AM EDT documented as of this encounter Plan of Treatment Upcoming Encounters Date Type Department Care Team (Late st Contact Info) Description 11/21/2024 10:30 AM EDT Office Visit [facility] MEDICINE [address] [place] [address] Radha Hankins MD [address] [place] [address] documented as of this encounter Visit Diagnoses Not on filedocumented in this encounter Care Teams Extraction Machine Operator Relationship Specialty Start Date End Date Radha Hankins MD [address] [place] [address] PCP - General Family Medicine 05/10/17 documented as of this encounter
--- OUTSIDE RECORDS SUMMARY | 2024-10-11 11:19 | XMS_ITS | Encounter Summary ---
Author Organization [employer] [facility] Address [address] [facility] 7t [place] [address] Care Team Providers Care Grab Jack Man Name Role Phone Radha Hankins MD Primary Care Provider + Encounter Details Date Type Department Care Team (Late st Contact Info) Description 12/05/2022 Telephone [facility] MEDICINE [address] [place], [place] [phone] Sara John LPN Social History Tobacco Use Types Packs/Day Years Used Date Smoking Tobacco: Every Day Cigarettes Passive Smoke Exposure: Current Smokeless Tobacco: Never Comments Unknown Sex and Gender Information Value Date Recorded Sex Assigned at Female 06/27/2022 10:17 AM EDT Legal Sex Female 10:17 AM EDT Gender Identity Female 06/27/2022 10:17 AM EDT Sexual Orientation Choose not to disclose 2021 10:17 AM EDT COVID-19 Exposure Response Date Recorded In the last 10 days, have yo u been in contact with someone who was confirmed or suspected to have Coronavirus/COVID-19? No / Unsure 11/25/2022 10:07 AM EDT documented as of this encounter Plan of Treatment Upcoming Encounters Date Type Department Care Team (Late st Contact Info) Description 11/21/2024 10:30 AM EDT Office Visit [facility] MEDICINE [address] [place] [phone] Radha Hankins MD [address] [place] [phone] documented as of this encounter Visit Diagnoses Not on filedocumented in this encounter Care Teams Grab Jack Man Relationship Specialty Start Date End Date Radha Hankins MD [address] [place] [phone] PCP - General Family Medicine 05/10/17 documented as of this encounter
--- OUTSIDE RECORDS SUMMARY | 2024-10-11 11:19 | XMS_ITS | Encounter Summary ---
Author Organization [employer] Address [address] [facility] 7t [place] [address] Care Team Providers Care Concrete Fence Builder Name Role Phone Radha Hankins MD Primary Care Provider + Reason for Visit * Reason Comments Med Refill Encounter Details Date Type Department Care Team (Late st Contact Info) Description 10/06/2024 Refill [facility]S [address] [place], [place] [phone] Radha Hankins MD [address] [place], [place] [phone] Essential hypertension Social History Tobacco Use Types Packs/Day Years Used Date Smoking Tobacco: Every Day Cigarettes Passive Smoke Exposure: Current Smokeless Tobacco: Never Alcohol Use Standard Drinks/Week Comments Never 0 (1 standard drink = 0.6 oz pur e alcohol) Depression Answer Date Recorded Patient Health Questionnaire-9 Score 15 12/23/2022 Housing Stability Answer Date Recorded What is your housing situation today? I have jose sing 03/28/[address] you li ve. Do you have problems with any of the following? None of the above 03/28/2024 Food Insecurity Answer Date Recorded Within the past 12 months, y ou worried that your food would run out before you got money to buy more: Never True 03/28/2024 Within the past 12 months,th e food you bought just didn't last and you didn't have enough money to get more: Never True 08/2023 Transportation Answer Date Recorded In the past 12 months, has l ack of transportation kept you from medical appts, meetings, work or from getting things needed for daily living? Yes, it has kept me from non-medical meetings, work, or getting things that I need 03/28/2024 Utilities Answer Date Recorded In the past 12 months, has t he electric, gas, oil or water company threatened to shut off services in your home? No 03/28/2024 Depression Answer Date Recorded Patient Health Questionnaire-2 Score 2 12/23/2022 Internet Access Answer Date Recorded Internet Access Q1 No 04/29/2024 Internet Access Q2 I cannot afford it 04/29/2024 Comments No Sex and Gender Information Value Date Recorded [...] Description 11/21/2024 10:30 AM EDT Office Visit [facility] MEDICINE [address] [place] [address] Radha Hankins MD [address] [place] [address] documented as of this encounter Visit Diagnoses Diagnosis Essential hypertension Unspecified essential hypertension documented in this encounter Additional Health Concerns Assessment Noted Time PHQ-9 Depression Total Score: 15 023 11:36 AM EDT documented as of this encounter Care Teams Concrete Fence Builder Relationship Specialty Start Date End Date Radha Hankins MD [address] [place] [phone] PCP - General Family Medicine 05/10/17 documented as of this encounter
--- OUTSIDE RECORDS SUMMARY | 2024-10-11 11:19 | XMS_ITS | Encounter Summary ---
Author Organization [employer] [facility] Address [address] [facility] 7t [place] [address] Care Team Providers Care Staff Editor Name Role Phone Radha Hankins MD Primary Care Provider + Encounter Details Date Type Department Care Team (Late st Contact Info) Description 02/14/[address] [facility] MEDICINE [address] [place], [place] [phone] Radha Hankins MD [address] [place], [place] [phone] Social History Tobacco Use Types Packs/Day Years Used Date Smoking Tobacco: Every Day Cigarettes Passive Smoke Exposure: Current Smokeless Tobacco: Never Alcohol Use Standard Drinks/Week Comments Never 0 (1 standard drink = 0.6 oz pur e alcohol) Depression Answer Date Recorded Patient Health Questionnaire-9 Score 15 12/23/2022 Depression Answer Date Recorded Patient Health Questionnaire-2 Score 2 12/23/2022 Comments Unknown Sex and Gender Information Value [...] Description 11/21/2024 10:30 AM EDT Office [address] [facility] MEDICINE [address] [place], [place] [phone] Rdaha Hankins MD [address] [place], [place] [phone] documented as of this encounter Visit Diagnoses Not on filedocumented in this encounter Additional Health Concerns Assessment Noted Time PHQ-9 Depression Total Score: 15 12/23/ 023 11:36 AM EDT documented as of this encounter Care Teams Staff Editor Relationship Specialty Start Date End Date Radha Hankins MD [address] [place] [phone] PCP - General Family Medicine 05/10/17 documented as of this encounter
--- OUTSIDE RECORDS SUMMARY | 2024-10-11 11:19 | XMS_ITS | Encounter Summary ---
Author Organization [employer] Address [address] [facility] 7[address] [place] [address] Care Team Providers Care Ibm Websphere Commerce Consultant Name Role Phone Radha Hankins MD Primary Care Provider + Reason for Visit * Reason Onset Date Comments ER Follow-up 08/06/2024 Encounter Details Date Type Department Care Team ([facility] st Contact Info) Description 08/06/2024 Telephone [facility] MEDICINE [address] [place], [place] [phone] Radha Hankins MD [address] [place], [place] [phone] ER Follow-up Social History Tobacco Use Types Packs/Day Years [...] AM EDT documented as of this encounter Miscellaneous Notes * Telephone Encounter - Althea Guevara RN - 08/06/2024 10:08 AM EST Call returned to Apryl Phan to triage below. Confirms seen at [facility] for asthma dn UTI sx. Ptdx with prednisone 20mg daily. Also cefuroxime 500mg BID x 7 days for UTI. Pt having difficulty with using stairs. Pt wants letter to request a first floor apartment. Pt has nebulizer in home to use PRN for SOB or wheezing. Pt started meds yesterday. Pt agrees to follow up appt tomorrow with team provider. Protocol Used: Recent Medical Visit for Illness Follow-up Call (Adult) Protocol-Based Disposition: See in Office or Video Visit Today or Tomorrow Future Appointments Date Time Provider Department Center 08/07/2024 9:30 AM Kalyn Noland MD MEDICINE [facility] ' Video visit offer not recorded Positive Triage Question: * Patient wants to be seen * All higher-acuity triage questions were negative Care Advice Discussed: * Continue Treatment * Reasons To Call Back - You become worse * Telephone Encounter - Brody Phan - 08/06/2024 10:01 AM EST Patient calling to report ED visit on : Date: 08/04/24 Hospital: [facility] Seen for: Asthma Attack Symptom: Cough Outcome: Talk to a nurse or provider within 15 minutes Reason: Any trouble breathing through the mouth documented in this encounter Plan of Treatment Upcoming Encounters Date Type Department Care Team (Late st Contact Info) Description 11/21/2024 10:30 AM EDT Office Visit [facility] MEDICINE [address] [place] [address] Radha Hankins MD [address] [place], [place] [phone] documented as of this encounter Visit Diagnoses Not on filedocumented in this encounter Additional Health Concerns Assessment Noted Time PHQ-9 Depression Total Score: 15 023 11:36 AM EDT documented as of this encounter Care Teams Ibm Websphere Commerce Consultant Relationship Specialty Start Date End Date Radha Hankins MD [address] [place] [phone] PCP - General Family Medicine 05/10/17 documented as of this encounter
--- OUTSIDE RECORDS SUMMARY | 2024-10-11 11:19 | XMS_ITS | Encounter Summary ---
Author Organization [employer] Address [address] [facility] [address] [place] [address] Care Team Providers Care Audiovisual Tech Name Role Phone Radha Hankins MD Primary Care Provider + Encounter Details Date Type Department Care Team (Late st Contact Info) Description 12/19/2022 Orders Only [facility] CHC MED & PEDS [address] [place], [place] [phone] Sheela Williamson LPN Social History Tobacco Use Types Packs/Day Years Used Date Smoking Tobacco: Every Day Cigarettes Passive Smoke Exposure: Current Smokeless Tobacco: Never Depression Answer Date Recorded Patient Health Questionnaire-9 [...] Description 11/21/2024 10:30 AM EDT Office Visit [facility] MEDICINE [address] [place], [place] [phone] Radha Hankins MD [address] [place], [place] [phone] documented as of this encounter Visit Diagnoses Not on filedocumented in this encounter Care Teams Audiovisual Tech Relationship Specialty Start Date End Date Radha Hankins MD [address] [place] [address] PCP - General Family Medicine 05/10/17 documented as of this encounter
--- OUTSIDE RECORDS SUMMARY | 2024-10-11 11:19 | XMS_ITS | Encounter Summary ---
Author Organization [employer] Address [address] [facility] [address] [place] [address] Care Team Providers Care Barber Instructor Name Role Phone Radha Hankins MD Primary Care Provider + Encounter Details Date Type Department Care Team (Late st Contact Info) Description 10/20/2022 Orders Only [facility] CHC MED & PEDS [address] [place], [place] [phone] Sheela Williamson LPN Social History Tobacco Use [...] suspected to have Coronavirus/COVID-19? No / Unsure 10/13/2022 10:48 AM EST documented as of this encounter Plan of Treatment Upcoming Encounters Date Type Department Care Team (Late st Contact Info) Description 11/21/2024 10:30 AM EDT Office Visit [facility] MEDICINE [address] [place] [address] Radha Hankins MD [address] [place] [address] documented as of this encounter Visit Diagnoses Not on filedocumented in this encounter Care Teams Barber Instructor Relationship Specialty Start Date End Date Radha Hankins MD [address] [place] [address] PCP - General Family Medicine 05/10/17 documented as of this encounter
--- OUTSIDE RECORDS SUMMARY | 2024-10-11 11:19 | XMS_ITS | Encounter Summary ---
Author Organization [employer] Address [address] [facility] [address] [place] [address] Care Team Providers Care Big Data Engineer Name Role Phone Radha Hankins MD Primary Care Provider + Encounter Details Date Type Department Care Team (Late st Contact Info) Description 09/22/2022 Orders Only [facility] MED & PEDS [address] [place] [address] Sheela Williamson LPN Social History Tobacco Use Types Packs/Day Years Used Date Smoking Tobacco: Never Assessed Comments Unknown Sex and Gender Information Value [...] Description 11/21/2024 10:30 AM EDT Office Visit [facility] MEDICINE [address] [place] [address] Radha Hankins MD [address] [place] [address] documented as of this encounter Procedures Procedure Name Priority Date/Time Associated Diagnosis Comments XR KNEE 3 VIEWS RIGHT Routine 10/17/2022 12:12 PM EST XR KNEE 3 VIEWS LEFT Routine 10/17/2022 12:12 PM EST XR HAND 3+ VIEWS RIGHT Routine 10/17/2022 12:12 PM EST XR HAND 3+ VIEWS LEFT Routine 10/17/2022 12:12 PM EST XR LUMBAR SPINE 2-3 VIEWS Routine 10/17/2022 12:12 PM EST documented in this encounter Results * XR Lumbar Spine 2-3 Views (10/17/2022 12:12 PM EST) Anatomical Region Laterality Modality Spine, L-spine Radiographic Becca ging 10/17/2022 12:1 2 PM EST Narrative 10/19/2022 5:13 PM EST ? [facility] ?[address] ?[place] [address] ?XRay Report ? Signed ? Patient: Apryl Phan ?MR#: [id number] ?? 9240 ? : 1955 ?Acct:[id number] ? Age/Sex: 67 / F ?ADM Date: 10/17/22 ? Loc: HO.XRAY ? Attending Dr: Sheela Crane DO ? Ordering Physician: Sheela Crane DO ?? Date of Service: 10/17/22 ?? Procedure(s): XR lumbar spine 2-3V ?? Accession Number(s): [id number] ? cc: Sheela Crane DO ? EXAMINATION: ?? XR LUMBOSACRAL SPINE ? CLINICAL INFORMATION: ?? Reason for Exam LOW BACK PAIN RT SIDED SCIATICA ? COMPARISON: ?? None ? TECHNIQUE: ?? 3 views of the lumbar spine ? FINDINGS: ? 5 nonrib-bearing lumbar-type vertebral bodies. ? Vertebral body heights are maintained. Alignment is maintained. ? Multilevel degenerative disc disease worst at L5-S1 where there is mild ?? to moderate loss of disc space height and facet arthropathy. ? Atherosclerotic calcifications of the abdominal aorta. ? XR/XR lumbar spine 2-3V ?? IMPRESSION: ? * ??Mild to moderate spondylosis of the lumbar spine, as above detailed. ? * ??No significant spondylolisthesis. ? Dictated By: ?Zena Mahan MD ? Signed By: ?<Electronically signed by Zena Mahan MD in OV> ?10/19/220 ? DD/ ? TD/TT: ? [employer] Stewardess: ? Procedure Note Donotuseinterpreter, Image - 10/19/[address] [address] XRay Report Signed Patient: Bienvenido Phan#: [id number] 9240 : 1955cct:[id number] Age/Sex: 67 / FADM Date: 10/17/22 Loc: HO.XRAY Attending Dr: Sheela Crane DO Ordering Physician: Sheela Crane DO Date of Service: 10/17/22 Procedure(s): XR lumbar spine 2-3V Accession Number(s): [id number] cc: Sheela Crane DO EXAMINATION: XR LUMBOSACRAL SPINE CLINICAL INFORMATION: Reason for Exam LOW BACK PAIN RT SIDED SCIATICA COMPARISON: None TECHNIQUE: 3 views of the lumbar spine FINDINGS: 5 nonrib-bearing lumbar-type vertebral bodies. Vertebral body heights are maintained. Alignment is maintained. Multilevel degenerative disc disease worst at L5-S1 where there is mild to moderate loss of disc space height and facet arthropathy. Atherosclerotic calcifications of the abdominal aorta. XR/XR lumbar spine 2-3V IMPRESSION: * Mild to moderate spondylosis of the lumbar spine, as above detailed. * No significant spondylolisthesis. Dictated By: Zena Mahan MD Signed By: <Electronically signed by Zena Mahan MD in OV> 10/19/22 1710 DD/ 1212 TD/TT: [employer] Stewardess: us [facility] External Provider IMG XR PROCEDURES Final Result * XR Knee 3 Views Right (10/17/2022 12:12 PM EST) Anatomical Region Laterality Modality Lower Extremities, Knee Right Radiogra phic Imaging 10/17/2022 12:1 2 PM EST Narrative 10/19/2022 5:09 PM EST ? [facility] ?[address] ?[place] [address] ?XRay Report ? Signed ? Patient: Sylvester,Apryl ?MR#: [id number] ?? 9240 ? : 1955 ?Acct:[id number] ? Age/Sex: 67 / F ?ADM Date: 10/17/22 ? Loc: HO.XRAY ? Attending Dr: Sheela Crane DO ? Ordering Physician: Sheela Crane DO ?? Date of Service: 10/17/22 ?? Procedure(s): XR knee RT 3V ?? Accession Number(s): [id number] ? cc: Sheela Crane DO ? EXAMINATION: ?? XR BILATERAL KNEES ? CLINICAL INFORMATION: ?? Reason for Exam CHRONIC PAIN ? COMPARISON: ?? None ? TECHNIQUE: ?? 3 views of the bilateral knees ? FINDINGS: ? RIGHT KNEE: ? No acute fracture or dislocation. ? Mild to moderate degenerative changes of the knee with borderline loss ?? of medial compartment joint space and quadriceps tendon enthesopathy. ? No joint effusion. ? Soft tissues are unremarkable. ? LEFT KNEE: ? No acute fracture or dislocation. ? Mild to moderate degenerative changes of the knee with borderline loss ?? of medial compartment joint space and quadriceps tendon enthesopathy. ? No joint effusion. ? Soft tissues are unremarkable. ? XR/XR knee RT 3V ?? IMPRESSION: ? * ??No acute osseous abnormality. ? * ??Mild to moderate degenerative changes of the knees. ? Dictated By: ?Zena Mahan MD ? Signed By: ?<Electronically signed by Zena Mahan MD in OV> ?10/19/22 1707 ? DD/ ? TD/TT: ? [employer] Stewardess: ? Procedure Note Marilyn Bassett - 10/19/[address] [address] XRay Report Signed Patient: Apryl PhanMR#: [id number] : 7Acct:[id number] Age/Sex: 67 / FADM Date: 10/17/22 Loc: HO.XRAY Attending Dr: Sheela Crane DO Ordering Physician: Sheela Crane DO Date of Service: 10/17/22 Procedure(s): XR knee RT 3V Accession Number(s): [id number] cc: Sheela Crane DO EXAMINATION: XR BILATERAL KNEES CLINICAL INFORMATION: Reason for Exam CHRONIC PAIN COMPARISON: None TECHNIQUE: 3 views of the bilateral knees FINDINGS: RIGHT KNEE: No acute fracture or dislocation. Mild to moderate degenerative changes of the knee with borderline loss of medial compartment joint space and quadriceps tendon enthesopathy. No joint effusion. Soft tissues are unremarkable. LEFT KNEE: No acute fracture or dislocation. Mild to moderate degenerative changes of the knee with borderline loss of medial compartment joint space and quadriceps tendon enthesopathy. No joint effusion. Soft tissues are unremarkable. XR/XR knee RT 3V IMPRESSION: * No acute osseous abnormality. * Mild to moderate degenerative changes of the knees. Dictated By: Zena Mahan MD Signed By: <Electronically signed by Zena Mahan MD in OV> 10/19/22 1707 DD/ 1212 TD/TT: [employer] D[employer] Stewardess: [facility] External Provider IMG XR PROCEDURES Final Result * XR Knee 3 Views Left (10/17/2022 12:12 PM EST) Anatomical Region Laterality Modality Lower Extremities, Knee Left Radiogra phic Imaging 10/17/2022 12:1 2 PM EST Narrative 10/19/2022 5:09 PM EST ? [facility] ?[address] ?[place] [address] ?XRay Report ? Signed ? Patient: Sylvester,Apryl ?MR#: [id number] ?? 9240 ? : 1955 ?Acct:[id number] ? Age/Sex: 67 / F ?ADM Date: 02/20/23 ? Loc: HO.XRAY ? Attending Dr: Sheela Crane DO ? Ordering Physician: Sheela Crane DO ?? Date of Service: 10/17/22 ?? Procedure(s): XR knee LT 3V ?? Accession Number(s): [id number] ? cc: Sheeal Crane DO ? EXAMINATION: ?? XR BILATERAL KNEES ? CLINICAL INFORMATION: ?? Reason for Exam CHRONIC PAIN ? COMPARISON: ?? None ? TECHNIQUE: ?? 3 views of the bilateral knees ? FINDINGS: ? RIGHT KNEE: ? No acute fracture or dislocation. ? Mild to moderate degenerative changes of the knee with borderline loss ?? of medial compartment joint space and quadriceps tendon enthesopathy. ? No joint effusion. ? Soft tissues are unremarkable. ? LEFT KNEE: ? No acute fracture or dislocation. ? Mild to moderate degenerative changes of the knee with borderline loss ?? of medial compartment joint space and quadriceps tendon enthesopathy. ? No joint effusion. ? Soft tissues are unremarkable. ? XR/XR knee LT 3V ?? IMPRESSION: ? * ??No acute osseous abnormality. ? * ??Mild to moderate degenerative changes of the knees. ? Dictated By: ?Zena Mahan MD ? Signed By: ?<Electronically signed by Zena Mahan MD in OV> ?10/19/22 1707 ? DD/ 1212 ? TD/TT: ? [employer] Stewardess: ? Procedure Note Kavonvyjavyrich, Image - 10/19/[address] [address] XRay Report Signed Patient: Bienvenido Phan#: [id number] 9240 : 1955cct:[id number] Age/Sex: 67 / FADM Date: 10/17/22 Loc: HO.SABINA Attending Dr: Sheela Crane DO Ordering Physician: Sheela Crane DO Date of Service: 10/17/22 Procedure(s): XR knee LT 3V Accession Number(s): [id number] cc: Sheela Crane DO EXAMINATION: XR BILATERAL KNEES CLINICAL INFORMATION: Reason for Exam CHRONIC PAIN COMPARISON: None TECHNIQUE: 3 views of the bilateral knees FINDINGS: RIGHT KNEE: No acute fracture or dislocation. Mild to moderate degenerative changes of the knee with borderline loss of medial compartment joint space and quadriceps tendon enthesopathy. No joint effusion. Soft tissues are unremarkable. LEFT KNEE: No acute fracture or dislocation. Mild to moderate degenerative changes of the knee with borderline loss of medial compartment joint space and quadriceps tendon enthesopathy. No joint effusion. Soft tissues are unremarkable. XR/XR knee LT 3V IMPRESSION: * No acute osseous abnormality. * Mild to moderate degenerative changes of the knees. Dictated By: Zena Mahan MD Signed By: <Electronically signed by Zena Mahan MD in OV> 10/19/22 1707 DD/ 1212 TD/TT: [employer] Stewardess: [facility] External Provider IMG XR PROCEDURES Final Result * XR Hand 3+ Views Left (10/17/2022 12:12 PM EST) Anatomical Region Laterality Modality Upper Extremities, Hand Left Radiogra phic Imaging 10/17/2022 12:1 2 PM EST Narrative 10/19/2022 5:06 PM EST ? [facility] ?[address] ?[place] [address] ?XRay Report ? Signed ? Patient: Apryl Phan ?MR#: [id number] ?? 9240 ? : 1955 ?Acct:[id number] ? Age/Sex: 67 / F ?ADM Date: 10/17/22 ? Loc: HO.XRAY ? Attending Dr: Sheela Crane DO ? Ordering Physician: Sheela Crane DO ?? Date of Service: 10/17/22 ?? Procedure(s): XR hand LT min 3V ?? Accession Number(s): [id number] ? cc: Sheela Crane DO ? EXAMINATION: ?? XR hand LT min 3V, XR hand RT min 3V ? CLINICAL INFORMATION: ?? Pain ? COMPARISON: ?? None ? TECHNIQUE: ?? 3 views of the bilateral hands ? FINDINGS: ? RIGHT HAND: ? No fracture or dislocation. ? Joint spaces are maintained. ??No cortical erosion. ? Soft tissues are unremarkable. ? LEFT HAND: ? No fracture or dislocation. ? Joint spaces are maintained. ??No cortical erosion. ? Soft tissues are unremarkable. ? XR/XR hand LT min 3V ?? IMPRESSION: ? No acute osseous abnormality. ? Dictated By: ?Zena Mahan MD ? Signed By: ?<Electronically signed by Zena Mahan MD in OV> ?10/19/ 1703 ? DD/ 1212 ? TD/TT: ? [employer] D[employer] Stewardess: ? Procedure Note Donluz elena, Image - 10/19/[address] [address] XRay Report Signed Patient: Bienvenido Phan#: [id number] 9240 : 1955cct:[id number] Age/Sex: 67 / FADM Date: 10/17/22 Loc: CAROLY[facility] Attending Dr: Sheela Crane DO Ordering Physician: Sheela Crane DO Date of Service: 10/17/22 Procedure(s): XR hand LT min 3V Accession Number(s): [id number] cc: Sheela Crane DO EXAMINATION: XR hand LT min 3V, XR hand RT min 3V CLINICAL INFORMATION: Pain COMPARISON: None TECHNIQUE: 3 views of the bilateral hands FINDINGS: RIGHT HAND: No fracture or dislocation. Joint spaces are maintained. No cortical erosion. Soft tissues are unremarkable. LEFT HAND: No fracture or dislocation. Joint spaces are maintained. No cortical erosion. Soft tissues are unremarkable. XR/XR hand LT min 3V IMPRESSION: No acute osseous abnormality. Dictated By: Zena Mahan MD Signed By: <Electronically signed by Zena Mahan MD in OV> 10/19/22 1703 DD/ 1212 TD/TT: [employer] Stewardess: [facility] External Provider IMG XR PROCEDURES Final Result * XR Hand 3+ Views Right (10/17/2022 12:12 PM EST) Anatomical Region Laterality Modality Upper Extremities, Hand Right Radiogra phic Imaging 10/17/2022 12:1 2 PM EST Narrative 10/19/2022 5:06 PM EST ? [facility] ?[address] ?[place] [address] ?XRay Report ? Signed ? Patient: Sylvester,Apryl ?MR#: [id number] ?? 9240 ? : 1955 ?Acct:[id number] ? Age/Sex: 67 / F ?ADM Date: 10/17/22 ? Loc: HO.XRAY ? Attending Dr: Sheela Crane DO ? Ordering Physician: Sheela Crane DO ?? Date of Service: 10/17/22 ?? Procedure(s): XR hand RT min 3V ?? Accession Number(s): [id number] ? cc: Sheela Crane DO ? EXAMINATION: ?? XR hand LT min 3V, XR hand RT min 3V ? CLINICAL INFORMATION: ?? Pain ? COMPARISON: ?? None ? TECHNIQUE: ?? 3 views of the bilateral hands ? FINDINGS: ? RIGHT HAND: ? No fracture or dislocation. ? Joint spaces are maintained. ??No cortical erosion. ? Soft tissues are unremarkable. ? LEFT HAND: ? No fracture or dislocation. ? Joint spaces are maintained. ??No cortical erosion. ? Soft tissues are unremarkable. ? XR/XR hand RT min 3V ?? IMPRESSION: ? No acute osseous abnormality. ? Dictated By: ?Zena Mahan MD ? Signed By: ?<Electronically signed by Zena Mahan MD in OV> ?10/19/22 1703 ? DD/ 1212 ? TD/TT: ? [employer] D[employer] Stewardess: ? Procedure Note Marilyn Bassett - 10/19/2022 [facility] [address] [place] [address] XRay Report Signed Patient: Bienvenido Phan#: [id number] : 1955cct:[id number] Age/Sex: 67 / FADM Date: 10/17/22 Loc: HOOSVALDO Attending Dr: Sheela Crane DO Ordering Physician: Sheela Crane DO Date of Service: 10/17/22 Procedure(s): XR hand RT min 3V Accession Number(s): [id number] cc: Sheela Crane DO EXAMINATION: XR hand LT min 3V, XR hand RT min 3V CLINICAL INFORMATION: Pain COMPARISON: None TECHNIQUE: 3 views of the bilateral hands FINDINGS: RIGHT HAND: No fracture or dislocation. Joint spaces are maintained. No cortical erosion. Soft tissues are unremarkable. LEFT HAND: No fracture or dislocation. Joint spaces are maintained. No cortical erosion. Soft tissues are unremarkable. XR/XR hand RT min 3V IMPRESSION: No acute osseous abnormality. Dictated By: Zena Mahan MD Signed By: <Electronically signed by Zena Mahan MD in OV> 10/19/22 1703 DD/ 1212 TD/TT: [employer] D[employer] Stewardess: [facility] External Provider IMG XR PROCEDURES Final Result documented in this encounter Visit Diagnoses Not on filedocumented in this encounter Care Teams Big Data Engineer Relationship Specialty Start Date End Date Radha Hankins MD [address] [place] [id number] PCP - General Family Medicine 05/10/17 documented as of this encounter
--- OUTSIDE RECORDS SUMMARY | 2024-10-11 11:19 | XMS_ITS | Encounter Summary ---
Author Organization [employer] Address [address] [facility] [address] [place] [address] Care Team Providers Care Press Operator [employer] Name Role Phone Radha Hankins MD Primary Care Provider + Reason for Visit * Reason Onset Date Comments Appointment Request 04/10/2024 Encounter Details Date Type Department Care Team ([facility] st Contact Info) Description 04/10/2024 Telephone [facility] MEDICINE [address] [place], [place] [phone] Radha Hankins MD [address] [place], [place] [phone] Appointment Request Social History Tobacco Use Types Packs/Day Years [...] encounter Miscellaneous Notes * Telephone Encounter - Mynor Teague - 04/10/2024 1:55 PM EDT Tc from patient calling to reschedule appt from 04/10 states completely forgot about this appt an would like a sooner appt than what the insurance writer has offered documented in this encounter Plan of Treatment Upcoming Encounters Date Type Department Care Team (Late st Contact Info) Description 11/21/2024 10:30 AM EDT Office Visit [facility] MEDICINE [address] [place] [address] Radha Hankins MD [address] [place] [address] documented as of this encounter Visit Diagnoses Not on filedocumented in this encounter Additional Health Concerns Assessment Noted Time PHQ-9 Depression Total Score: 15 023 11:36 AM EDT documented as of this encounter Care Teams Press Operator [employer] Relationship Specialty Start Date End Date Radha Hankins MD [address] [place], [place] [phone] PCP - General Family Medicine 05/10/17 documented as of this encounter
--- OUTSIDE RECORDS SUMMARY | 2024-10-11 11:19 | XMS_ITS | Clinical Summary ---
Author Organization [employer] Address [address] [place] [address] Care Team Providers Care Well Tender Name Role Phone Radha Hankins MD Primary Care Provider + Allergies Active Allergy Reactions Criticality Noted Date Comments Morphine Anaphylaxis High 11/20/2014 Medications dextran 70-hypromellose (artificial tears) 0.1-0.3 % ophthalmic solution INSTILL 1 DROP INTO EACH EYE 3 TO 4 TIMES A DAY 30 mL 3 023 Active simvastatin (Zocor) 20 MG tablet TAKE 1 TABLET BY MOUTH AT BEDTIME 90 tablet 3 024 Active cromolyn (Opticrom) 4 % ophthalmic solutionIndicatio ns:Allergic conjunctivitis of both eyes INSTILL 1 DROP IN EACH EYE FOUR TIMES DAILY 10 mL 1 024 Active betamethasone valerate (Valisone) 0.1 % cream Apply 1 Application. topically Once per day. 15 g 3 024 Active Diclofenac Sodium 1 % gel Apply 2 g topically if needed in the morning and at bedtime (pain). 150 g 2 024 Active meclizine (Antivert) 25 MG tablet TAKE 1 TABLET BY MOUTH THREE TIMES DAILY NEEDED 60 tablet 5 024 Active levothyroxine (Synthroid, Levoxyl) 100 MCG tabletIndications :Acquired hypothyroidism TAKE 1 TABLET BY MOUTH EVERY MORNING 90 tablet 1 024 Active venlafaxine XR (Effexor XR) 75 MG 24 hr capsuleIndication s:Anxiety TAKE 1 CAPSULE BY MOUTH EVERY MORNING WITH FOOD 90 capsule 1 024 Active cetirizine (ZyrTEC) 10 MG tabletIndications :Allergic rhinitis, unspecified seasonality, unspecified trigger,Allergy, subsequent encounter TAKE 1 TABLET BY MOUTH ONCE DAILY NEEDED FOR ALLERGY 90 tablet 1 024 Active baclofen (Lioresal) 10 MG tabletIndications :Chronic bilateral low back pain with right-sided sciatica TAKE 1 TABLET BY MOUTH THREE TIMES DAILY IN THE MORNING, AT NOON, AND AT BEDTIME NEEDED FOR MUSCLE SPASMS 60 tablet 2 024 Active fluticasone furoate (Arnuity Ellipta) 200 MCG/ACT inhaler INHALE 1 PUFF BY MOUTH EVERY DAY AT THE SAME TIME RINSE MOUTH AFTER USING 30 each 2 024 Active albuterol (2.5 MG/3ML) 0.083% nebulizer solutionIndicatio ns:Moderate persistent asthma with exacerbation Take 3 mL (2.5 mg) by nebulization every 4 (four) hours if needed for wheezing. 75 mL 3 024 2024 Active albuterol 108 (90 Base) MCG/ACT inhalerIndication s:Moderate persistent asthma with exacerbation Inhale 2 puffs every 6 (six) hours if needed for wheezing or shortness of breath. 18 g 3 024 Active triamcinolone (Kenalog) 0.1 % creamIndications: Rash Apply topically if needed in the morning and at bedtime (pain and swelling). 30 g 024 Active fluticasone (Flonase) 50 MCG/ACT nasal sprayIndications: Allergic rhinitis, unspecified seasonality, unspecified trigger USE 2 SPRAYS IN EACH NOSTRIL ONCE DAILY NEEDED FOR ALLERGIES 16 g 2 025 Active amLODIPine (Norvasc) 5 MG tabletIndications :Essential hypertension TAKE 1 TABLET BY MOUTH EVERY EVENING 90 tablet 3 025 Active acetaminophen (Tylenol 8 Hour) 650 MG ER tabletIndications :Chronic bilateral low back pain with right-sided sciatica Take 1 tablet (650 mg) by mouth every 8 (eight) hours if needed for moderate pain, mild pain or headaches. 120 tablet 024 2024 amLODIPine (Norvasc) 5 MG tabletIndications :Essential hypertension TAKE 1 TABLET BY MOUTH EVERY EVENING 90 tablet 3 024 2024 Discontinued Active Problems Problem Noted Date Diagnosed Date Moderate persistent asthma with exacerbation 06/2024 Assessment & Plan (08/07/2024 12:32 PM EST): Patient educated to avoid theodora tiggers Letter for housing will be sign Referral to pulmonology I will extend his prednisone treatment 50mg for 5 more days C/w albuterol PRN Rash 08/07/2024 Obesity, morbid 04/25/2024 Assessment & Plan (05/23/2024 9:22 AM EDT): See previous OV note Will fu on Wegovy approval Continue with current POC and fu with me in 3m Assessment & Plan (04/25/2024 2:06 PM EDT): Discussed re weight reduction options including exercise, life style modifications, diet and referral to patient access specialist. Recommended to decrease soda and sugary beverage consumption, increase protein intake with meals (at least 1 portion of protein with each meal) to assist with satiety, increase dietary fiber Recommended at least 150 min/week of moderate intensity exercise. Pt failed Xenical in the past, not the candidate for Phentermine due to anxiety. I will prescribe Wegovy in order to decrease morbidity or mortality, especially HTN and IFG. I will start 0.25mg/w and titrate up weekly until she tolerates 2.4mg/w FU with me in 2m Exercise counseling 04/25/2024 Dietary counseling 04/25/2024 Sprain of anterior talofibular ligament of right ankle 04/25/2024 Assessment & Plan (05/23/2024 9:21 AM EDT): Persistent pain, I advised to wear an OTC ankle brace, we'll fu with DME provider re ankle brace with support. Advised to take tylenol, elevate ankle and apply ice prn pain, Impacted cerumen of right ear 08/15/2023 Assessment & Plan (08/15/2023 10:57 AM EST): She will start Deprox ointment solution 5 x /day on right ear 1 wk prior to RN visit for ear lavage Allergic conjunctivitis of both eyes 08/15/2023 Assessment & Plan (08/15/2023 11:01 AM EST): Continue zyrtec Use cromolyn eye drops TID Otitis externa 08/15/2023 Assessment & Plan (08/15/2023 11:00 AM EST): Counseled to avoid scratching or picking of the ear Use Cortisporin ear drops 3 x /day Allergies 12/23/2022 Assessment & Plan (12/23/2022 12:05 PM EDT): recommended to use cetirizine and natural tears eye drops continue using flovent and albuterol PRN for asthma exacerbation Elevated blood pressure reading 12/21/2022 Cervical spine disease 12/21/2022 Tendinitis of left rotator cuff 12/21/2022 Arthritis of both hands 11/25/2022 Assessment & Plan (11/25/2022 11:07 AM EDT): mild inflammation of both hands probably related to OA, r/o inflammatory arthritis counseled to decrease consumption of sugars and starch celebrex x 2 weeks and fu in 1 month take tylenol PRN x-ray of both hands is normal Arthritis of both elbows 11/25/2022 Assessment & Plan (11/25/2022 11:07 AM EDT): See above. LOCO (dyspnea on exertion) 11/25/2022 Assessment & Plan (11/25/2022 11:07 AM EDT): Counseled regarding weight reduction I gave her information [place] [facility] [place]. FU next appointment Screening mammogram for breast cancer 11/25/2022 Screen for colon cancer 11/25/2022 Essential hypertension 10/13/2022 Assessment & Plan (08/07/2024 12:32 PM EST): Mildly elevated I advise to f/u with PCP Prediabetes 10/13/2022 Assessment & Plan (05/23/2024 9:22 AM EDT): Needs labs Will fu with pharmacy re Wegovy as it would be of great benefit to start her on it due to concomitant morbid obesity. See last OV note FU with labs in Assessment & Plan (04/25/2024 12:08 PM EDT): She is not on medications, will try to give medication for obesity in order to decrease morbidity and mortality, see above. I have discussed with Pt regarding increasing physical activity and decrease calorie intake. I have discussed with patient regarding increasing physicial activity and decrease calorie intake I'll check FBS with next set of labs. To check RBS at next visit. FU with me in one month with labs. Assessment & Plan (03/08/2024 11:59 AM EDT): A1c is at goal. I have discussed with patient regarding increasing physicial activity and decrease calorie intake I'll check FBS with next set of labs. To check RBS at next visit. FU in 6-8m Major depression, recurrent, chronic 10/13/2022 Assessment & Plan (04/25/2024 12:05 PM EDT): Pt is doing well overall of Venlafaxine 75 mg. We discussed about coping strategy with anxiety attacks, she is not on psychotherapy. Feels safe at home and is able to reach out for safety. Assessment & Plan (08/15/2023 10:54 AM EST): Doing well on Effexor Anxiety 10/13/2022 Assessment & Plan (12/23/2022 12:06 PM EDT): Doing well on effexor 75 mg pt is to have labs and fu with me in 3 months mammogram needs to be scheduled, ordered at last visit. Moderate persistent asthma 10/13/2022 Chronic neck pain 10/13/2022 Vertigo 10/13/2022 Chronic venous insufficiency 10/13/2022 Assessment & Plan (04/25/2024 12:49 PM EDT): Advised to use compression stockings up to knee level. Advised regarding weight reduction. Cobalamin deficiency 01/29/2019 Assessment & Plan (04/25/2024 12:49 PM EDT): Recheck B12 levels. 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 Please call patient and tell her that I will increase only her thyroid medication and repeat TSH in 3m. Tell her to continue simvastatin same dose, stress life style modifications like moderate amount of exercise and increased consumption of fruit, vegetables, fish and high fiber foods, avoid consumption of highly saturated fats or trans fats. I will repeat lipids in 6-8m. Hypothyroidism 2012 Acquired hypothyroidism 2012 Assessment & Plan (04/25/2024 12:07 PM EDT): On Levothyroxine 100 mg, order TSH. Childhood obesity 03/22/2012 Panic disorder without agoraphobia 03/22/2012 Depressive disorder 03/22/2012 Asthma 03/22/2012 Anxiety state 03/22/2012 Mixed stress and urge urinary incontinence 01/17 Allergic rhinitis 08/28/1959 Assessment & Plan (03/08/2024 11:59 AM EDT): Advised to use NS + Flonase daily Advised re vapor showers Assessment & Plan (08/15/2023 11:02 AM EST): Use flonase daily, cont zyrtec FU in 1 month, consider allergy testing Resolved Problems Problem Noted Date Diagnosed Date Resolved Date IFG (impaired fasting glucose) 10/13/2022 10/13/2022 Encounters Date Type Department Care Team Description 10/06/2024 Refill [facility] [address] [place] [address] Radha Hankins MD Essential hypertension 09/08/2024 Refill [facility] [address] [place] [address] Radha Hankins MD Allergic rhinitis, unspecified seasonality, unspecified trigger 08/30/2024 Telephone [facility] [address] [place] [address] Radha Hankins MD October recall 08/07/2024 9:30 AM EST Office Visit [facility] [address] [place] [address] Kalyn Walker MD Moderate persistent asthma with exacerbation (Primary Dx); Essential hypertension; Rash 08/07/2024 Travel 08/06/2024 Telephone [facility] [address] [place] [address] Radha Hankins MD ER Follow-up 08/05/2024 Orders Only GENERIC EXTERNAL DATA DEPARTMENT Provider, Generic External Data 08/04/2024 Orders Only [facility] External Provider, [facility] 08/04/2024 Refill [facility] [address] [place] [address] Radha Hankins MD 07/25/2024 Refill [facility] [address] [place] [address] Radha Hankins MD Chronic bilateral low back pain with right-sided sciatica from Last 3 Months Immunizations Name Administration Dates Next Due Hep B, adult 05/07/2007,02/12/2007,03/21/2006 Influenza Injectable Quadriv alant Preservative Free IIV4 MDCK 08/12/2020 Influenza injectable quadriv alent IIV4 with preservative 05/23/2018,05/19/2017 Influenza injectable quadriv alent preservative free 05/17/2019 Influenza, IIV3, injectable 05/19/2014, 1 Influenza, Split (incl. dolores fied surface antigen) 06/03/2013,2012 TD (adult), 2 Lf tetanus tox oid, preservative free, adsorbed 02/12/2007 Tdap 06/03/2013 Social History Tobacco Use Types Packs/Day Years Used Date Smoking Tobacco: Every Day Cigarettes Passive Smoke Exposure: Current Smokeless Tobacco: Never Tobacco Cessation:Ready to Q uit: Not Asked; Counseling Given: Not Answered Alcohol Use Standard Drinks/Week Comments Never 0 (1 standard drink = 0.6 oz pur e alcohol) Depression Answer Date Recorded Patient Health Questionnaire-9 Score 15 12/23/2022 Housing Stability Answer Date Recorded What is your housing situation today? I have jose jackman 03/28/[address] you li [...] not to disclose 2021 10:17 AM EDT Last Filed Vital Signs Vital Sign Reading Time Taken Comments Blood Pressure 148/76 08/07/2024 9:40 AM EST Pulse 82 08/07/2024 9:40 AM EST Temperature 35.6 ??C (96 ??F) 08/07/2024 9:40 AM EST Respiratory Rate 24 08/07/2024 9:40 AM EST Oxygen Saturation 91% 08/07/2024 9:40 AM EST Inhaled Oxygen Concentration - - Weight 104 kg (229 lb 9.6 oz) 08/07/2024 9:40 AM EST Height 152.4 cm (5') 08/07/2024 9:40 AM EST Body Mass Index 44.84 08/07/2024 9:40 AM EST Plan of Treatment Upcoming Encounters Date Type Department Care Team (Late st Contact Info) Description 11/21/2024 10:30 AM EDT Office Visit [facility] [address] [place] [address] Radha Hankins MD [address] [place], [place] [phone] Health Maintenance Due Date Last Done Comments CT Colonography 1957 FIT DNA/Cologuard 1957 FIT 1957 FOBT 1955 Sigmoidoscopy 1957 Alcohol/Substance Use Screening 1969 Hepatitis C Screening 1975 Pneumococcal Vaccine: 50+ Years (1 of 2 - PCV) 1976 Zoster Vaccines (1 of 2) 2007 RSV Patients and Patients Aged 60 years or older (1 - Risk 60-74 years 1-dose series) 2017 Colonoscopy 07/04/2021 07/04/2018 Colorectal Cancer Screening 07/04/2021 DTaP/Tdap/Td Vaccines (2 - Td or Tdap) 06/03/2023 06/03/2013, 02/12/2007 Depression Monitoring (PHQ-9) 06/24/2023 12/23/2022, 12/23/2022 Depression Screening 12/24/2023 12/23/2022, 12/24/19 23 Mammogram 02/03/2024 02/02/2023, 0603/2023, 02/02/2023, Additional history exists COVID-19 Vaccine ( season) 2024 09/06/2022, 01/28/2021, 12/31/2020 Influenza Vaccine (#1) 2024 0, 05/17/2019, 05/23/2018, Additional history exists Diabetes: Hemoglobin A1C 10/09/2024 10/09/2023, 03/2 12/2020 SDOH Screening 03/28/2025 03/28/2024 Tobacco Screening 08/07/2025 08/07/2024 Lipid Panel 08/15/2028 08/15/2023, 12/23/2022 Hepatitis B Vaccines Completed 05/07/2007, 02/12/2007, 03/21/2006 HIB Vaccines Aged Out No longer eligi ble based on patient's age to complete this topic HPV Vaccines Aged Out No longer eligi ble based on patient's age to complete this topic Hepatitis A Vaccines Aged Out No long er eligible based on patient's age to complete this topic IPV Vaccines Aged Out No longer eligi ble based on patient's age to complete this topic Meningococcal Vaccine Aged Out No adan nelson eligible based on patient's age to complete this topic RSV under 20 months Aged Out No longe r eligible based on patient's age to complete this topic Rotavirus Vaccines Aged Out No longer eligible based on patient's age to complete this topic Procedures Procedure Name Priority Date/Time Associated Diagnosis Comments URINALYSIS, COMPLETE, WITH REFLEX TO CULTURE Routine 08/05/2024 1:05 AM EST CULTURE, URINE, ROUTINE Routine 08/05/2024 12:00 AM EST XR CHEST 2 VIEWS Routine 08/04/2024 11:0 2 PM EST POCT GLYCATED HEMOGLOBIN, TOTAL Routine 10/09/2023 10:35 AM EST Prediabetes LIPID PANEL WITH REFLEX TO DIRECT LDL Routine 08/15/2023 10:53 AM EST Mixed hyperlipidemia BI MAMMOGRAM SCREENING BILATERAL Routine 02/02/2023 3:41 PM EDT Screening mammogram for breast cancer HM COLONOSCOPY Routine 07/04/2018 from Last 3 Months or Most Recently Relevant to Health Maintenance Results * (ABNORMAL) Urinalysis, Complete, with Reflex to Culture (08/05/2024 1:05 AM EST) Color Urine Yellow [facility] Appearance Urine Clear [facility] PH 5.0 5.0 - 9.0 [facility] Glucose Urine UA Negative Negative mg/dL [facility] Urine Blood Negative Negative [facility] Specific [place] - Urine <=1.005 1.005 - 1.025 [facility] Urine Protein Negative Neg-Trace mg/dL [facility] Urine Ketones Negative Negative mg/dL [facility] Nitrite Urine Negative Negative [facility] Leukocyte Esterase Urine Small (1+)(A) Negative [facility] RBC Urine 0-2 0 - 2 /HPF [facility] Urine WBC 11-20(A) 0 - 5 /HPF [facility] Urine Squamous Epithelial Cell 3-5 0 - 2 /HPF [facility] Urine Bacteria None Seen None Seen [facility] Hyaline Casts, Urine 0-2 0 - 2 /LPF [facility] 08/05/2024 1:05 AM EST 08/05/2024 1:16 AM EST Narrative [facility] - 08/05/2024 1:24 AM EST [id number], Clean Catch us Generic External Data Provider LAB URINE ORDERAB LES Final Result [facility] [address] [place] [phone] * Culture, Urine, Routine (08/05/2024 12:00 AM EST) Urine Urine specimen obtained by clean catch procedure / Unknown 08/05/2024 08/05/2024 Comment:[facility] Narrative [facility] - 08/07/2024 7:43 AM EST Escherichia coli Quant > 100,000 cfu/mL Corynebacterium species No [facility] Standard methods for susceptibility testing not established. Quant 50,000 to 100,000 cfu/mL Escherichia coli: Ampicillin >=32(R) Escherichia coli: Cefazolin 4(S) Escherichia coli: Cefepime <=0.12(S) Escherichia coli: Ceftriaxone <=0.25(S) Escherichia coli: Ciprofloxacin 0.5(I) Escherichia coli: Gentamicin <=1(S) Escherichia coli: Nitrofurantoin <=16(S) Escherichia coli: Trimethoprim/Sulfamethoxazole <=20(S) Specimen Source: Urine clean catch us Generic External Data Provider LAB MICROBIOLOGY - GENERAL ORDERABLES Final Result [facility] [address] [place] [phone] * XR Chest 2 Views (08/04/2024 11:02 PM EST) Anatomical Region Laterality Modality Chest Radiographic Becca ging 08/04/2024 11:0 2 PM EST Narrative 08/05/2024 12:49 AM EST ? [facility] ?[address] ?[place] [phone] ?XRay Report ? Signed ? Patient: Apryl Phan ?MR#: [id number] ?? [id number] ? : 1955 ?Acct:[id number] ? Age/Sex: 69 / F ?ADM Date: 08/04/24 ? Loc: HO.ED ? Attending Dr: ? Ordering Physician: Neeraj Quinones MD ?? Date of Service: 08/04/24 ?? Procedure(s): XR chest 2V ?? Accession Number(s): [id number] ? cc: Radha Hankins MD; Neeraj Quinones MD ? EXAMINATION: ?? XR CHEST ? CLINICAL INFORMATION: ?? SOB ? COMPARISON: ?? January 28, 2019. ? TECHNIQUE: ?? 2 views of the chest were obtained. ? FINDINGS: ?? The cardiomediastinal silhouette is stable. There are linear opacities ?? at both lung bases. The lungs are otherwise clear. There are no ?? significant pleural effusions. The bony structures and the soft tissues ?? are unremarkable. ? XR/XR chest 2V ?? IMPRESSION: ?? Linear opacities at both lung bases likely kiosk sales representative of ?? atelectasis. ? No other significant abnormality seen. ? Electronically signed by: ??Arron Matthew MD ??08/05/2024 12:46 AM EST RP ? Dictated By: ?Arron Matthew MD ? Signed By: ?<Electronically signed by Arron Matthew MD in OV> ?08/05/246 ? DD/ 01 ? TD/TT: 08/04/242305 ? Pharmacy Tech: ? Procedure Note Donotuseinterpreter, Image - 08/05/[address] [address] XRay Report Signed Patient: Apryl PhanMR#: [id number] : 1955cct:[id number] Age/Sex: 69 / FADM Date: 08/04/24 Loc: HO.ED Attending Dr: Ordering Physician: Neeraj Quinones MD Date of Service: 08/04/24 Procedure(s): XR chest 2V Accession Number(s): [id number] cc: Radha Hankins MD; Neeraj Quinones MD EXAMINATION: XR CHEST CLINICAL INFORMATION: SOB COMPARISON: January 28, 2019. TECHNIQUE: 2 views of the chest were obtained. FINDINGS: The cardiomediastinal silhouette is stable. There are linear opacities at both lung bases. The lungs are otherwise clear. There are no significant pleural effusions. The bony structures and the soft tissues are unremarkable. XR/XR chest 2V IMPRESSION: Linear opacities at both lung bases likely kiosk sales representative of atelectasis. No other significant abnormality seen. Electronically signed by: Arron Matthew MD 08/05/2024 12:46 AM EST Dictated By: Arron Matthew MD Signed By: <Electronically signed by Arron Matthew MD in OV> 08/05/246 DD/ 01 TD/TT: 08/04/242305 Pharmacy Tech: [facility] External Provider IMG XR PROCEDURES Edited Result - Final * (ABNORMAL) POCT HGB A1C (10/09/2023 10:35 AM EST) Hemoglobin A1C 6.2(A) 4.0 - 6.0 % QC Media Lot # [id number] Lot# Expiration Date Blood 10/09/2023 10:3 5 AM EST Radha Hankins MD POINT OF CARE TEST ENTER /EDIT ORDERABLES Final Result * (ABNORMAL) Lipid Panel with Reflex to Direct LDL (08/15/2023 10:53 AM EST) Triglycerides 280(H) <150 mg/dL [facility] Comment:Desirable Triglyceri de: less than 150 mg/dLBorderline High Triglyceride 150-199 mg/dLHigh Triglyceride: 200-499 mg/dLVery High Triglyceride: greater than or equal to 5OO mg/dL Cholesterol 197 <200 mg/dL [facility] Comment:Desirable Cholestero l: less than 200 mg/dLBorderline High Cholesterol: 200-239 mg/dLHigh Cholesterol: greater than 239 mg/dL LDL Cholesterol Calculated 99 <100 mg/dL [facility] Comment:Desirable LDL: less than 100 mg/dLNear Optimal/Above Optimal LDL: 110- 129 mg/dLBorderline High LDL: 130-159 mg/dLHigh LDL: 160-189 mg/dLVery High LDL: greater than or equal to 190 mg/dL HDL Cholesterol 42 >40 mg/dL [facility] Comment:Desirable HDL: great er than 40 mg/dL Note: This HDL assay may give artificially low results in patients with liver disease. Blood 08/15/2023 10:5 3 AM EST 08/15/2023 11:16 AM EST us Radha Hankins MD LAB BLOOD ORDERABLES Fin al Result [facility] [address] [place] [phone] * BI Mammogram Screening Bilateral (02/02/2023 3:41 PM EDT) Anatomical Region Laterality Modality Breast Bilateral Mammography us Radha Hankins MD IMG BI PROCEDURES Final Result * (ABNORMAL) Colonoscopy (07/04/2018) Colonoscopy Abnormal( A) Normal Comment:repeat 5years us Historical Provider HEALTH MAINTENANCE Edited Result - Final from Last 3 Months or Most Recently Relevant to Health Maintenance Insurance [facility] Care Teams Well Tender Relationship Specialty Start Date End Date Radha Hankins MD [address] [place] [phone] PCP - General Family Medicine 05/10/17
== END 2024-10-11 11:05 | disposition home or self-care (01) ==
PROVIDERS: PCP Internal Medicine; Visit Provider Internal Medicine Pulmonary Disease
DX: J45.909 Unspecified asthma, uncomplicated (principal); Z91.09 Other allergy status, other than to drugs and biological substances
CPT/HCPCS: 99204

== ENCOUNTER 2024-11-06 11:05 | Outpatient (AMB) | payer OTHER, SELFPAY ==
[2024-11-06 11:07] VITALS: BP 110/62; PULSE 84; O2SAT 96; BMI 44.8
--- NOTE | 2024-11-06 11:07 | MHC.OFFVIS ---
Vital Signs 11/06/24 11:07 Height 5 ft Weight 229 lb 4.492 oz BMI 44.8 BP 110/62 Blood Pressure Location Rt brachial Position Sitting Pulse 84 Pulse Source Doppler Pulse Oximetry (%) 96 Oxygen Delivery Method Room Air Intake Visit Reasons: Asthma Allergies morphine [MORPHINE] Allergy (Unknown, Verified 10/11/24 10:44) ANAPHYLAXIS HPI HPI Asthma: Details: 69-year-old lady, active 10-15 pack-year smoker followed for at least moderate persistent asthma and environmental allergies. At the last office visit patient has been switched from Flovent to Symbicort and now reports significantly improved symptom control. She denies recent exacerbations. Her allergies are well controlled as needed Flonase and Zyrtec. She has completed her immunologic workup that shows underlying allergies to ragweed. [facility] Medical History (Updated 10/11/24 @ 11:07 by Konstantin Luque MD) Vertigo Asthma Hypercholesteremia Hypothyroidism (acquired) HTN (hypertension) Surgical History (Updated 10/03/23 @ 11:11 by Kalyn Hurst) Hx of bilateral breast reduction surgery Hx of section Social History (Updated 10/11/24 @ 10:48 by NEVA Colindres) Household Members: Family Patient Tobacco Use Status: Current everyday Tobacco user Tobacco use type: Cigarette Cigarettes Per Day: 5 Years Smoked: started age 19, Current occupational status: unemployed Review of Systems Const Denies daytime sleepiness, Denies excessive sweating, Denies fatigue, Denies fever(s), Denies lethargy, Denies malaise, Denies night sweats, Denies snoring and Denies weight loss Eyes Denies blurry vision and Denies itchy eyes ENT Denies nasal congestion, Denies post nasal drip, Denies sinus pain, Denies sinus pressure and Denies other ( Thrush) Card Denies chest pain, Denies pedal edema, Denies dyspnea, Denies orthopnea and Denies paroxysmal nocturnal dyspnea Resp Denies cough, Denies hemoptysis, Denies excessive phlegm production, Denies dyspnea, Denies snoring and Denies wheezing GI Denies abdominal pain and Denies heartburn Musc Denies myalgias, Denies arthralgias and Denies joint swelling Skin/Breast Denies rash Neuro Denies memory loss and Denies seizure-like activity Psych Denies abnormal sleep pattern, Denies anxiety and Denies memory loss Endo Denies excessive sweating, Denies fatigue and Denies heat intolerance Sam/Lymph Denies easy bruising Aller/Immun Denies itchy eyes, Denies seasonal rhinorrhea and Denies wheezing Physical Exam Vital Signs: Last Vital Signs Pulse 84 11/06/24 11:07 BP 110/62 11/06/24 11:07 Pulse Ox 96 11/06/24 11:07 Oxygen Delivery Method Room Air 11/06/24 11:07 BMI result Body Mass Index 44.8 Const General: no acute distress and alert Nutritional Appearance: not obese Orientation/consciousness: Other orientation findings ( oriented) HEENT Head: Yes atraumatic Eyes General: appearance normal, both eyes and all related structures Sclerae: sclerae normal EOM: EOMs intact bilaterally Neck Neck: Yes supple Lymphatic: no lymphadenopathy noted Resp Effort & Inspection: normal respiratory effort and no use of accessory muscles Auscultation: clear to auscultation bilaterally Cardio Rate: regular rate Rhythm: regular rhythm Heart sounds: no gallops, no murmurs and no rubs Skin General skin exam: other ( warm) Extrem General: No clubbing, No cyanosis and No edema Assessment & Plan Assessment & Plan (1) Asthma: Code(s): J45.909 - Unspecified asthma, uncomplicated Category: Medical Plan: Well controlled on current regimen of Symbicort and albuterol MDI/nebs. Continue current regimen. (2) Environmental allergies: Code(s): Z91.09 - Other allergy status, other than to drugs and biological substances Category: Medical Plan: Well controlled on as needed Flonase and Zyrtec. Continue current regimen. Medications: Changed From albuterol sulfate 90 mcg/actuation (Ventolin HFA) inhalation To albuterol sulfate 90 mcg/actuation (Ventolin HFA) 2 puffs inhalation Q4-6H PRN 1 ea 6RF shortness of breath or wheezing Refilled budesonide-formoterol 160-4.5 mcg/actuation (Symbicort) 2 puffs inhalation BID 10.2 grams 6RF Coding Level of Care Code Est Pt Level 4 (62048) Diagnoses Asthma J45.909 Environmental allergies Z91.09
--- OUTSIDE RECORDS SUMMARY | 2024-11-06 13:04 | XMS_ITS | Encounter Summary ---
Author Organization [facility] [facility] Address [address] [facility] 7t [place] [address] Care Team Providers Care Quality Assurance Assistant Name Role Phone Radha Hankins MD Primary Care Provider + Encounter Details Date Type Department Care Team (Late st Contact Info) Description 02/14/2023 Abstract [facility] MEDICINE [address] [place], [place] [phone] Radha Hankins MD [address] [place], [place] [phone] Social History Tobacco Use Types Packs/Day Years [...] 10:30 AM EDT Office Visit [facility] MEDICINE [address] [place], [place] [phone] Radha Hankins MD [address] [place], [place] [phone] documented as of this encounter Visit Diagnoses Not on filedocumented in this encounter Additional Health Concerns Assessment Noted Time PHQ-9 Depression Total Score: 15 12/23/ 023 11:36 AM EDT documented as of this encounter Care Teams Quality Assurance Assistant Relationship Specialty Start Date End Date Radha Hankins MD [address] [place] [address] PCP - General Family Medicine 05/10/17 documented as of this encounter
--- OUTSIDE RECORDS SUMMARY | 2024-11-06 13:04 | XMS_ITS | Encounter Summary ---
Author Organization [employer] Address 75 [facility] 7t [place] [address] Care Team Providers Care Straightedge Man Name Role Phone Radha Hankins MD Primary Care Provider + Encounter Details Date Type Department Care Team (Late st Contact Info) Description 09/22/2022 Orders Only [facility] CHC MED & PEDS [address] [place] [address] Sheela Williamson LPN Social History Tobacco Use [...] Description 11/21/2024 10:30 AM EDT Office Visit [facility] MEDICINE [address] [place] [address] Radha Hankins MD [address] [place] [address] documented as of this encounter Procedures Procedure [...] EST Narrative 10/19/2022 5:13 PM EST ? [facility] ?[address] ?[place] [address] ?XRay Report ? Signed ? Patient: Apryl Phan ?MR#: [id number] ?? 9240 ? : 1955 ?Acct:[id number] ? Age/Sex: 67 / F ?ADM Date: 10/17/22 ? Loc: HO.XRAY ? Attending Dr: Sheela Crane DO ? Ordering Physician: Sheela Crane DO ?? Date of Service: 10/17/22 ?? Procedure(s): XR lumbar spine 2-3V ?? Accession Number(s): [id number] ? cc: Sheela Crane DO ? EXAMINATION: [...] OV> ?10/19/220 ? DD/ ? TD/TT: ? Pin Chaser: ? Procedure Note Donotuseinterpreter, Image - 10/19/[address] [address] XRay Report Signed Patient: Bienvenido Phan#: [id number] 9240 : 1955cct:[id number] Age/Sex: 67 / FADM Date: 10/17/22 Loc: HO.XRAY Attending Dr: Sheela Crane DO Ordering Physician: Sheela Crane DO Date of Service: 10/17/22 Procedure(s): XR lumbar spine 2-3V Accession Number(s): [id number] cc: Sheela Crane DO EXAMINATION: XR LUMBOSACRAL [...] in OV> 10/19/22 1710 DD/ 1212 TD/TT: Pin Chaser: us [facility] External Provider IMG XR PROCEDURES Final Result * XR Knee 3 Views Right (10/17/2022 12:12 PM EST) Anatomical Region Laterality Modality Lower Extremities, Knee Right Radiogra phic Imaging 10/17/2022 12:1 2 PM EST Narrative 10/19/2022 5:09 PM EST ? [place] [facility] ?[address] ?[place] [address] ?XRay Report ? Signed ? Patient: Sylvester,Apryl ?MR#: [id number] ?? 9240 ? : 1955 ?Acct:[id number] ? Age/Sex: 67 / F ?ADM Date: 10/17/22 ? Loc: HO.XRAY ? Attending Dr: Sheela Crane DO ? Ordering Physician: Sheela Crane DO ?? Date of Service: 10/17/22 ?? Procedure(s): XR knee RT 3V ?? Accession Number(s): [id number] ? cc: Sheela Crane DO ? EXAMINATION: [...] ?10/19/22 1707 ? DD/ ? TD/TT: ? Pin Chaser: ? Procedure Note Marilyn Bassett - 10/19/[address] [address] XRay Report Signed Patient: Apryl PhanMR#: [id number] : 7Acct:[id number] Age/Sex: 67 / FADM Date: 10/17/22 Loc: HO.XRAY Attending Dr: Sheela Crane DO Ordering Physician: Sheela Crane DO Date of Service: 10/17/22 Procedure(s): XR knee RT 3V Accession Number(s): [id number] cc: Sheela Crane DO EXAMINATION: XR BILATERAL [...] in OV> 10/19/22 1707 DD/ 1212 TD/TT: Pin Chaser: [facility] External Provider IMG XR PROCEDURES Final Result * XR Knee 3 Views Left (10/17/2022 12:12 PM EST) Anatomical Region Laterality Modality Lower Extremities, Knee Left Radiogra phic Imaging 10/17/2022 12:1 2 PM EST Narrative 10/19/2022 5:09 PM EST ? [facility] ?[address] ?[place] [address] ?XRay Report ? Signed ? Patient: Sylvester,Apryl ?MR#: [id number] ?? 9240 ? : 1955 ?Acct:[id number] ? Age/Sex: 67 / F ?ADM Date: 02/20/23 ? Loc: HO.XRAY ? Attending Dr: Sheela Crane DO ? Ordering Physician: Sheela Crane DO ?? Date of Service: 10/17/22 ?? Procedure(s): XR knee LT 3V ?? Accession Number(s): [id number] ? cc: Sheela Crane DO ? EXAMINATION: [...] 1707 ? DD/ 1212 ? TD/TT: ? Pin Chaser: ? Procedure Note Kavonvyjavyrich, Image - 10/19/[address] [address] XRay Report Signed Patient: Bienvenido Phan#: [id number] 9240 : 1955cct:[id number] Age/Sex: 67 / FADM Date: 10/17/22 Loc: HO.SABINA Attending Dr: Sheela Crane DO Ordering Physician: Sheela Crane DO Date of Service: 10/17/22 Procedure(s): XR knee LT 3V Accession Number(s): [id number] cc: Sheela Crane DO EXAMINATION: XR BILATERAL [...] in OV> 10/19/22 1707 DD/ 1212 TD/TT: Pin Chaser: [facility] External Provider IMG XR PROCEDURES Final Result * XR Hand 3+ Views Left (10/17/2022 12:12 PM EST) Anatomical Region Laterality Modality Upper Extremities, Hand Left Radiogra phic Imaging 10/17/2022 12:1 2 PM EST Narrative 10/19/2022 5:06 PM EST ? [facility] ?[address] ?[place] [address] ?XRay Report ? Signed ? Patient: Apryl Phan ?MR#: [id number] ?? 9240 ? : 1955 ?Acct:[id number] ? Age/Sex: 67 / F ?ADM Date: 10/17/22 ? Loc: HO.XRAY ? Attending Dr: Sheela Crane DO ? Ordering Physician: Sheela Crane DO ?? Date of Service: 10/17/22 ?? Procedure(s): XR hand LT min 3V ?? Accession Number(s): [id number] ? cc: Sheela Crane DO ? EXAMINATION: [...] 1703 ? DD/ 1212 ? TD/TT: ? Pin Chaser: ? Procedure Note Donluz elena, Image - 10/19/[address] [address] XRay Report Signed Patient: Bienvenido Phan#: [id number] 9240 : 1955cct:[id number] Age/Sex: 67 / FADM Date: 10/17/22 Loc: CAROLYNE Attending Dr: Sheela Crane DO Ordering Physician: Sheela Crane DO Date of Service: 10/17/22 Procedure(s): XR hand LT min 3V Accession Number(s): [id number] cc: Sheela Crane DO EXAMINATION: XR hand [...] in OV> 10/19/22 1703 DD/ 1212 TD/TT: Pin Chaser: [facility] External Provider IMG XR PROCEDURES Final Result * XR Hand 3+ Views Right (10/17/2022 12:12 PM EST) Anatomical Region Laterality Modality Upper Extremities, Hand Right Radiogra phic Imaging 10/17/2022 12:1 2 PM EST Narrative 10/19/2022 5:06 PM EST ? [facility] ?[address] ?[place] [address] ?XRay Report ? Signed ? Patient: Sylvester,Apryl ?MR#: [id number] ?? 9240 ? : 1955 ?Acct:[id number] ? Age/Sex: 67 / F ?ADM Date: 10/17/22 ? Loc: HO.XRAY ? Attending Dr: Sheela Crane DO ? Ordering Physician: Sheela Crane DO ?? Date of Service: 10/17/22 ?? Procedure(s): XR hand RT min 3V ?? Accession Number(s): [id number] ? cc: Sheela Crane DO ? EXAMINATION: [...] 1703 ? DD/ 1212 ? TD/TT: ? Pin Chaser: ? Procedure Note Marilyn Bassett - 10/19/2022 [facility] [address] [facility] [address] [place] [address] XRay Report Signed Patient: Bienvenido Phan#: [id number] 9240 : 1955cct:[id number] Age/Sex: 67 / FADM Date: 10/17/22 Loc: HOOSVALDO Attending Dr: Sheela Crane DO Ordering Physician: Sheela Crane DO Date of Service: 10/17/22 Procedure(s): XR hand RT min 3V Accession Number(s): [id number] cc: Sheela Crane DO EXAMINATION: XR hand [...] in OV> 10/19/22 1703 DD/ 1212 TD/TT: Pin Chaser: [facility] External Provider IMG XR PROCEDURES Final Result documented in this encounter Visit Diagnoses Not on filedocumented in this encounter Care Teams Straightedge Man Relationship Specialty Start Date End Date Radha Hankins MD [address] [place] [address] PCP - General Family Medicine 05/10/17 documented as of this encounter
--- OUTSIDE RECORDS SUMMARY | 2024-11-06 13:04 | XMS_ITS | Encounter Summary ---
Author Organization [employer] Address 75 [facility] 7t [place] [address] Care Team Providers Care Law Professor Name Role Phone Radha Hankins MD Primary Care Provider + Reason for Visit * Reason Onset Date Comments Appointment Request 04/10/2024 Encounter Details Date Type Department Care Team ([facility] st Contact Info) Description 04/10/2024 Telephone [facility] MEDICINE [address] [place], [place] [phone] Radha Hankins MD [address] [place], [place] [phone] Appointment Request Social History Tobacco Use Types [...] like a sooner appt than what the fiction and nonfiction writer prose has offered documented in this encounter Plan of Treatment Upcoming Encounters Date Type Department Care Team (Late st Contact Info) Description 11/21/2024 10:30 AM EDT Office Visit [facility] MEDICINE [address] [place] [address] Radha Hankins MD [address] [place] [address] documented as of this encounter Visit Diagnoses Not on filedocumented in this encounter Additional Health Concerns Assessment Noted Time PHQ-9 Depression Total Score: 15 023 11:36 AM EDT documented as of this encounter Care Teams Law Professor Relationship Specialty Start Date End Date Radha Hankins MD [address] [place], [place] [phone] PCP - General Family Medicine 05/10/17 documented as of this encounter
--- OUTSIDE RECORDS SUMMARY | 2024-11-06 13:04 | XMS_ITS | Encounter Summary ---
Author Organization [employer] Address 75 [facility] 7t [place] [address] Care Team Providers Care Benzol Still Operator Name Role Phone Radha Hankins MD Primary Care Provider + Encounter Details Date Type Department Care Team (Late st Contact Info) Description 12/19/2022 Orders Only [facility] CHC MED & PEDS [address] [place], [place] [phone] Sheela Williamson LPN Social History Tobacco Use [...] 10:30 AM EDT Office Visit [facility] MEDICINE [address] [place], [place] [phone] Radha Hankins MD [address] [place], [place] [phone] documented as of this encounter Visit Diagnoses Not on filedocumented in this encounter Care Teams Benzol Still Operator Relationship Specialty Start Date End Date Radha Hankins MD [address] [place] [address] PCP - General Family Medicine 05/10/17 documented as of this encounter
--- OUTSIDE RECORDS SUMMARY | 2024-11-06 13:04 | XMS_ITS | Encounter Summary ---
Author Organization [employer] Address 75 [facility] 7t [place] [address] Care Team Providers Care Sap Basis Consultant Name Role Phone Radha Hankins MD Primary Care Provider + Encounter Details Date Type Department Care Team (Late st Contact Info) Description 11/16/2022 Orders Only [facility] CHC MED & PEDS [address] [place] [address] Sheela Williamson LPN Social History Tobacco Use [...] Description 11/21/2024 10:30 AM EDT Office Visit [facility] MEDICINE [address] [place] [address] Radha Hankins MD [address] [place] [address] documented as of this encounter Visit Diagnoses Not on filedocumented in this encounter Care Teams Sap Basis Consultant Relationship Specialty Start Date End Date Radha Hankins MD [address] [place] [address] PCP - General Family Medicine 05/10/17 documented as of this encounter
--- OUTSIDE RECORDS SUMMARY | 2024-11-06 13:04 | XMS_ITS | Encounter Summary ---
Author Organization [employer] Address [address] [facility] 7t [place] [address] Care Team Providers Care Developmental Services Worker Name Role Phone Radha Hankins MD Primary Care Provider + Encounter Details Date Type Department Care Team (Late st Contact Info) Description 10/20/2022 Orders Only [facility] CHC MED & PEDS [address] [place], [place] [phone] Sheela Williamson LPN Social History Tobacco Use [...] Description 11/21/2024 10:30 AM EDT Office Visit [facility] MEDICINE [address] [place] [address] Radha Hankins MD [address] [place] [address] documented as of this encounter Visit Diagnoses Not on filedocumented in this encounter Care Teams Developmental Services Worker Relationship Specialty Start Date End Date Radha Hankins MD [address] [place] [address] PCP - General Family Medicine 05/10/17 documented as of this encounter
--- OUTSIDE RECORDS SUMMARY | 2024-11-06 13:04 | XMS_ITS | Clinical Summary ---
Author Organization [employer] Address [address] [facility] 7t [place] [address] Care Team Providers Care Skid Machine Operator Name Role Phone Radha Hankins [...] FOR ALLERGY 90 tablet 1 024 Active fluticasone furoate (Arnuity Ellipta) 200 [...] EVERY EVENING 90 tablet 3 025 Active ibuprofen 600 MG tablet TAKE 1 TABLET BY MOUTH EVERY 6 HOURS WITH FOOD NEEDED FOR PAIN 120 tablet 025 Active baclofen (Lioresal) 10 MG tabletIndications :Chronic bilateral low back pain with right-sided sciatica TAKE 1 TABLET BY MOUTH THREE TIMES DAILY IN THE MORNING, EVENING, AND BEDTIME NEEDED FOR MUSCLE SPASMS 60 tablet 2 025 Active acetaminophen (Tylenol 8 Hour) 650 MG ER tabletIndications :Chronic bilateral low back pain with right-sided sciatica Take 1 tablet (650 mg) by mouth every 8 (eight) hours if needed for moderate pain, mild pain or headaches. 120 tablet 024 2024 baclofen (Lioresal) 10 MG tabletIndications :Chronic bilateral low back pain with right-sided sciatica TAKE 1 TABLET BY MOUTH THREE TIMES DAILY IN THE MORNING, AT NOON, AND AT BEDTIME NEEDED FOR MUSCLE SPASMS 60 tablet 2 024 2024 Discontinued Active Problems Problem Noted Date Diagnosed Date Moderate persistent asthma with exacerbation 06/2024 Assessment & Plan (08/07/2024 12:32 PM EST): Patient educated to [facility] Letter for housing will be sign Referral to pulmonology I will extend his prednisone treatment 50mg for 5 more days C/w albuterol PRN Rash 08/07/2024 Obesity, morbid 04/25/2024 Assessment & Plan (05/23/2024 9:22 AM EDT): See previous OV note Will fu on [employer] approval Continue with current POC and fu with me in Assessment & Plan (04/25/2024 2:06 PM EDT): Discussed re weight reduction options including exercise, life style modifications, diet and referral to meeting specialist. Recommended to decrease soda and sugary [...] weight reduction I gave her information about [facility] weight reduction program. FU next appointment Screening mammogram for breast cancer 11/25/2022 Screen for colon cancer 11/25/2022 Essential hypertension 10/13/2022 Assessment & Plan (08/07/2024 12:32 PM EST): Mildly elevated I advise to f/u with PCP Prediabetes 10/13/2022 Assessment & Plan (05/23/2024 9:22 AM EDT): Needs labs Will fu with pharmacy re Xochitlrupa as it would be of great benefit [...] Encounters Date Type Department Care Team Description 10/29/2024 Refill [facility] [address] [place] [address] Radha Hankins MD Chronic bilateral low back pain with right-sided sciatica 10/22/2024 Refill [facility] [address] [place] [address] Radha Hankins MD 10/11/2024 Orders Only GENERIC EXTERNAL DATA DEPARTMENT Provider, Generic External Data 10/06/2024 Refill [facility] [address] [place] [address] Radha Hankins MD Essential hypertension 09/08/2024 Refill [facility] [address] [place], [place] [phone] Radha Hankins MD Allergic rhinitis, unspecified seasonality, unspecified trigger 08/30/2024 Telephone [facility] [address] [place], [place] [phone] Radha Hankins MD October recall from Last 3 Months Immunizations Name Administration [...] 10:30 AM EDT Office Visit [facility] [address] [place] [address] Radha Hankins MD [address] [place] [address] Health Maintenance Due Date Last Done Comments [...] 12/24/2023 12/23/2022, 12/24/19 23 Mammogram 02/03/2024 02/02/2023, 06/0 03/2023, 02/02/2023, Additional history exists COVID-19 Vaccine ( season) 2024 09/06/2022, 01/28/2021, 12/31/2020 Influenza Vaccine (#1) 2024 , 05/17/2019, 05/23/2018, Additional history exists Diabetes: Hemoglobin [...] Procedure Name Priority Date/Time Associated Diagnosis Comments RESPIRATORY ALLERGY PROFILE REGION I Routine 10/11/2024 11:26 AM EST POCT GLYCATED HEMOGLOBIN, TOTAL Routine 10/09/2023 10:35 AM EST Prediabetes LIPID PANEL WITH REFLEX TO DIRECT LDL Routine 08/15/2023 10:53 AM EST Mixed hyperlipidemia BI MAMMOGRAM SCREENING BILATERAL Routine 02/02/2023 3:41 PM EDT Screening mammogram for breast cancer HM COLONOSCOPY Routine 07/04/2018 from Last 3 Months or Most Recently Relevant to Health Maintenance Results * (ABNORMAL) Respiratory Allergy Profile Region I (10/11/2024 11:26 AM EST) Immunoglobulin E 6 <WN=033 kU/L [facility] Mouse Urine Proteins (E72) IgE <0.10 kU/L [facility] Class 0 [facility] Cockroach (I6) IgE <0.10 kU/L [facility] Class 0 [facility] Dermatophagoides farinae (D2) IgE <0.10 kU/L [facility] Class 0 [facility] Cat Dander (E1) IgE <0.10 kU/L [facility] Class 0 [facility] Comment:THIS TEST WAS PERFOR MED AT:[employer] [address] [phone] LOZANO MD Dog Dander (E5) IgE <0.10 kU/L [facility] Class 0 [facility] Comment:THIS TEST WAS PERFOR MED AT:[employer] [address] [phone] LOZANO MD Sukhdeep Grass (G6) IgE <0.10 kU/L [facility] Class 0 [facility] Cladosporium herbarum (M2) IgE <0.10 kU/L [facility] Class 0 [facility] Aspergillus Fumigatis (M3) IgE <0.10 kU/L [facility] Class 0 [facility] Alternaria alternata (M6) IgE <0.10 kU/L [facility] Class 0 [facility] Comment:THIS TEST WAS PERFOR MED AT:[employer] [address] [phone] LOZANO MD [place] (t6) IgE <0.10 kU/L [facility] Class 0 [facility] Guys (T7) IgE <0.10 kU/L [facility] Class 0 [facility] [place] (T10) IgE <0.10 kU/L [facility] Class 0 [facility] [place] (T11) IgE <0.10 kU/L [facility] Class 0 [facility] [place] (T14) IgE <0.10 kU/L [facility] Class 0 [facility] [place] (t15) IgE <0.10 kU/L [facility] Class 0 [facility] [place] (T70) IgE <0.10 kU/L [facility] Class 0 [facility] Common Ragweed (Short) (W1) IgE 0.78(A) kU/L [facility] Class 2 [facility] Mugwort (w6) IgE <0.10 kU/L [facility] Class 0 [facility] Dermatophagoides pteronyssinus (D1) IgE <0.10 kU/L [facility] Class 0 [facility] Berm[place] Grass (g2) IgE <0.10 kU/L [facility] Class 0 [facility] Penicillium Notatum (M1) IgE <0.10 kU/L [facility] Class 0 [facility] Birch (T3) IgE <0.10 kU/L [facility] Class 0 [facility] Elm (t8) IgE <0.10 kU/L [facility] Class 0 [facility] Maple ([place]) (T1) IgE <0.10 kU/L [facility] Class 0 [facility] Rough Pigweed (W14) IgE <0.10 kU/L [facility] Class 0 [facility] Sheep [place] (W18) IgE <0.10 kU/L [facility] Class 0 [facility] Allergen Comment See Below [facility] Comment: Specific ?Level of AllergenIGE Class ?kU/L ? Specific IGE Antibody ----- ? --------- ?0 ?<0.10 ? Absent/Undetectable ??0/1 ?0.10-0.34 ? Very Low Level ??1 ?0.35-0.69 ? Low Level ??2 ?0.70-3.49 ? Moderate Level ??3 ?3.50-17.4 ? High Level ??4 ?17.5-49.9 ? Very High Level ??5 ?50-100 ?Very High Level ??6 ?>100 ?Very High LevelThe clinical relevance of allergen results of0.10-0.34 kU/L are undetermined and intended forspecialist use.Allergens denoted with a include results usingone or more analyte specific reagents. In thosecases, the test was developed and its analyticalperformance characteristics have been determined by[employer]. It has not been cleared or approvedby the U.S. Food and Drug Administration. This assayhas been validated pursuant to the CLIA regulationsand is used for clinical purposes.THIS TEST WAS PERFORMED AT:[employer] [place] [address] ??[phone] LOZANO MD 10/11/2024 11:2 6 AM EST 10/11/2024 11:26 AM EST us Generic External Data Provider LAB BLOOD ORDERAB LES Final Result [facility] [address] [place] [phone] * (ABNORMAL) POCT HGB A1C (10/09/2023 10:35 AM EST) Hemoglobin A1C 6.2(A) 4.0 - 6.0 % QC Media Lot # [id number] Lot# Expiration Date Blood 10/09/2023 10:3 5 AM EST Radha Hankins MD POINT OF CARE TEST ENTER /EDIT ORDERABLES Final Result * (ABNORMAL) Lipid Panel with Reflex to Direct LDL (08/15/2023 10:53 AM EST) Triglycerides 280(H) <150 mg/dL [facility] Comment:Desirable Triglyceri de: less than 150 mg/dLBorderline High Triglyceride 150-199 mg/dLHigh Triglyceride: 200-499 mg/dLVery High Triglyceride: greater than or equal to 5OO mg/dL Cholesterol 197 <200 mg/dL [facility] Comment:Desirable Cholestero l: less than 200 mg/dLBorderline High Cholesterol: 200-239 mg/dLHigh Cholesterol: greater than 239 mg/dL LDL Cholesterol Calculated 99 <100 mg/dL [facility] Comment:Desirable LDL: less than 100 mg/dLNear Optimal/Above Optimal LDL: 110- 129 mg/dLBorderline High LDL: 130-159 mg/dLHigh LDL: 160-189 mg/dLVery High LDL: greater than or equal to 190 mg/dL HDL Cholesterol 42 >40 mg/dL [facility] Comment:Desirable HDL: great er than 40 mg/dL Note: This HDL assay may give artificially low results in patients with liver disease. Blood 08/15/2023 10:5 3 AM EST 08/15/2023 11:16 AM EST Radha Hankins MD LAB BLOOD ORDERABLES Fin al Result [facility] [address] [place] [phone] * BI Mammogram Screening Bilateral (02/02/2023 3:41 PM EDT) Anatomical Region Laterality Modality Breast Bilateral Mammography us Radha Hankins MD IMG BI PROCEDURES Final Result * (ABNORMAL) Hm Colonoscopy (07/04/2018) Colonoscopy Abnormal( A) Normal Comment:repeat 5years us Historical Provider HEALTH MAINTENANCE Edited Result - Final from Last 3 Months or Most Recently Relevant to Health Maintenance Insurance [facility] Care Teams Skid Machine Operator Relationship Specialty Start Date End Date Radha Hankins MD [address] [place] [phone] PCP - General Family Medicine 05/10/17
--- OUTSIDE RECORDS SUMMARY | 2024-11-06 13:04 | XMS_ITS | Encounter Summary ---
Author Organization [employer] Address [address] [facility] 7t [place] [address] Care Team Providers Care Career Services Officer Name Role Phone Radha Hankins MD Primary Care Provider + Reason for Visit * Reason Comments Med Refill Encounter Details Date Type Department Care Team (Late st Contact Info) Description 10/06/2024 Refill [facility] [address] [place], [place] [phone] Radha Hankins MD [address] [place], [place] [phone] Essential hypertension Social History Tobacco Use Types [...] Office Visit [facility] [address] [place] [address] Radha Hankins MD [address] [place] [address] documented as of this encounter Visit Diagnoses Diagnosis Essential hypertension Unspecified essential hypertension documented in this encounter Additional Health Concerns Assessment Noted Time PHQ-9 Depression Total Score: 15 023 11:36 AM EDT documented as of this encounter Care Teams Career Services Officer Relationship Specialty Start Date End Date Radha Hankins MD [address] [place] [phone] PCP - General Family Medicine 05/10/17 documented as of this encounter
--- OUTSIDE RECORDS SUMMARY | 2024-11-06 13:04 | XMS_ITS | Encounter Summary ---
Author Organization [employer] Address [address] [facility] 7t [place] [address] Care Team Providers Care Army Senior Officer Name Role Phone Radha Hankins MD Primary Care Provider + Reason for Visit * Reason Comments Med Refill Encounter Details Date Type Department Care Team (Late st Contact Info) Description 10/22/2024 Refill [facility] PEDS [address] [place], [place] [phone] Radha Hankins MD [address] [place], [place] [phone] Social History Tobacco Use Types Packs/Day Years [...] Office Visit [facility] [address] [place] [address] Radha Hankins MD [address] [place] [address] documented as of this encounter Visit Diagnoses Not on filedocumented in this encounter Additional Health Concerns Assessment Noted Time PHQ-9 Depression Total Score: 15 023 11:36 AM EDT documented as of this encounter Care Teams Army Senior Officer Relationship Specialty Start Date End Date Radha Hankins MD [address] [place] [phone] PCP - General Family Medicine 05/10/17 documented as of this encounter
--- OUTSIDE RECORDS SUMMARY | 2024-11-06 13:04 | XMS_ITS | Encounter Summary ---
Author Organization [employer] [facility] Address [address] [facility] 7t [place] [address] Care Team Providers Care Archivist Name Role Phone Radha Hankins MD Primary Care Provider + Encounter Details Date Type Department Care Team (Late st Contact Info) Description 12/05/2022 Telephone [facility] [address] [place], [place] [phone] Sara John LPN Social History Tobacco Use [...] Description 11/21/2024 10:30 AM EDT Office Visit [facility] [address] [place] [phone] Radha Hankins MD [address] [place] [address] [phone] documented as of this encounter Visit Diagnoses Not on filedocumented in this encounter Care Teams Archivist Relationship Specialty Start Date End Date Radha Hankins MD [address] [place] [phone] PCP - General Family Medicine 05/10/17 documented as of this encounter
--- OUTSIDE RECORDS SUMMARY | 2024-11-06 13:04 | XMS_ITS | Encounter Summary ---
Author Organization [email or web address] Address [address] [facility] 7t [place] [address] Care Team Providers Care Machine Hose Cutter Name Role Phone Radha Hankins MD Primary Care Provider + Reason for Visit * Reason Onset Date Comments ER Follow-up 08/06/2024 Encounter Details Date Type Department Care Team ([facility] st Contact Info) Description 08/06/2024 Telephone [facility] MEDICINE [address] [place], [place] [phone] Radha Hankins MD [address] [place], [place] [phone] ER Follow-up Social History Tobacco Use Types [...] Phan to triage below. Confirms seen at [facility] for asthma dn UTI sx. Ptdx [...] 08/07/2024 9:30 AM Kalyn Noland MD MEDICINE [facility] ' Video visit offer not recorded Positive Triage Question: * Patient wants to be seen * All higher-acuity triage questions were negative Care Advice Discussed: * Continue Treatment * Reasons To Call Back - You become worse * Telephone Encounter - Brody Phan - 08/06/2024 10:01 AM EST Patient calling to report ED visit on : Date: 08/04/24 Hospital: [facility] Seen for: Asthma Attack Symptom: Cough Outcome: Talk to a nurse or provider within 15 minutes Reason: Any trouble breathing through the mouth documented in this encounter Plan of Treatment Upcoming Encounters Date Type Department Care Team (Late st Contact Info) Description 11/21/2024 10:30 AM EDT Office Visit [facility] MED[facility] [address] [place] [address] Radha Hankins MD [address] [place], [place] [phone] documented as of this encounter Visit Diagnoses Not on filedocumented in this encounter Additional Health Concerns Assessment Noted Time PHQ-9 Depression Total Score: 15 023 11:36 AM EDT documented as of this encounter Care Teams Machine Hose Cutter Relationship Specialty Start Date End Date Radha Hankins MD [address] [place] [address] [phone] PCP - General Family Medicine 05/10/17 documented as of this encounter
--- OUTSIDE RECORDS SUMMARY | 2024-11-06 13:04 | XMS_ITS | Encounter Summary ---
Author Organization [employer] Address [address] [facility] 7t [place] [address] Care Team Providers Care Personal Shopper Name Role Phone Radha Hankins MD Primary Care Provider + Encounter Details Date Type Department Care Team (Late st Contact Info) Description 10/11/2024 Orders Only GENERIC EXTERNAL DATA DEPARTMENT Provider, Generic External Data Social History Tobacco Use Types Packs/Day Years [...] Description 11/21/2024 10:30 AM EDT Office Visit [facility] [address] [place] [address] Radha Hankins MD [address] [place] [address] documented as of this encounter Procedures Procedure Name Priority Date/Time Associated Diagnosis Comments RESPIRATORY ALLERGY PROFILE REGION I Routine 10/11/2024 11:26 AM EST documented in this encounter Results * (ABNORMAL) Respiratory Allergy Profile Region I (10/11/2024 11:26 AM EST) Immunoglobulin E 6 <UF=942 kU/L [facility] Mouse Urine Proteins (E72) IgE <0.10 kU/L [facility] Class 0 [facility] Cockroach (I6) IgE <0.10 kU/L [facility] Class 0 [facility] Dermatophagoides farinae (D2) IgE <0.10 kU/L [facility] Class 0 [facility] Cat Dander (E1) IgE <0.10 kU/L [facility] Class 0 [facility] Comment:THIS TEST WAS PERFOR MED AT:[facility] [place] [phone] LOZANO MD Dog Dander (E5) IgE <0.10 kU/L [facility] Class 0 [facility] Comment:THIS TEST WAS PERFOR MED AT:[facility] [place] [phone] LOZANO MD Sukhdeep Grass (G6) IgE <0.10 kU/L [facility] Class 0 [facility] Cladosporium herbarum (M2) IgE <0.10 kU/L [facility] Class 0 [facility] Aspergillus Fumigatis (M3) IgE <0.10 kU/L [facility] Class 0 [facility] Alternaria alternata (M6) IgE <0.10 kU/L [facility] Class 0 [facility] Comment:THIS TEST WAS PERFOR MED AT:[facility] [place] [phone] LOZANO MD [place] (t6) IgE <0.10 kU/L [facility] Class 0 [facility] [place] (T7) IgE <0.10 kU/L [facility] Class 0 [facility] [place] Tree (T10) IgE <0.10 kU/L [facility] Class 0 [facility] [place] (T11) IgE <0.10 kU/L [facility] Class 0 [facility] [place] (T14) IgE <0.10 kU/L [facility] Class 0 [facility] [place] (t15) IgE <0.10 kU/L [facility] Class 0 [facility] [place] (T70) IgE <0.10 kU/L [facility] Class 0 [facility] Common Ragweed (Short) (W1) IgE 0.78(A) kU/L [facility] Class 2 [facility] Mugwort (w6) IgE <0.10 kU/L [facility] Class 0 [facility] Dermatophagoides pteronyssinus (D1) IgE <0.10 kU/L [facility] Class 0 [facility] [place]erm[place] Grass (g2) IgE <0.10 kU/L [facility] Class 0 [facility] Penicillium Notatum (M1) IgE <0.10 kU/L [facility] Class 0 [facility] Birch (T3) IgE <0.10 kU/L [facility] Class 0 [facility] Elm (t8) IgE <0.10 kU/L [facility] Class 0 [facility] Maple ([place]) (T1) IgE <0.10 kU/L [facility] Class 0 [facility] Rough Pigweed (W14) IgE <0.10 kU/L [facility] Class 0 [facility] Sheep [place] (W18) IgE <0.10 kU/L [facility] Class 0 [facility] Allergen Comment See Below [facility] Comment: Specific ?Level of AllergenIGE [...] and its analyticalperformance characteristics have been determined by[employer]. It has not been cleared or approvedby the U.S. Food and Drug Administration. This assayhas been validated pursuant to the CLIA regulationsand is used for clinical purposes.THIS TEST WAS PERFORMED AT:[facility] [place] [address] ??[phone] LOZANO MD 10/11/2024 11:2 6 AM EST 10/11/2024 11:26 AM EST us Generic External Data Provider LAB BLOOD ORDERAB LES Final Result Performing Organization Address City/State/[facility] Co de Phone Number [facility] [address] [place] [phone] documented in this encounter Visit Diagnoses Not on filedocumented in this encounter Additional Health Concerns Assessment Noted Time PHQ-9 Depression Total Score: 15 023 11:36 AM EDT documented as of this encounter Care Teams Personal Shopper Relationship Specialty Start Date End Date Radha Hankins MD [address] [place] [phone] PCP - General Family Medicine 05/10/17 documented as of this encounter
--- OUTSIDE RECORDS SUMMARY | 2024-11-06 13:04 | XMS_ITS | Encounter Summary ---
Author Organization [employer] Address [address] [facility] 7t [place] [address] Care Team Providers Care Product Merchandiser Name Role Phone Radha Hankins MD Primary Care Provider + Reason for Visit * Reason Comments Med Refill Encounter Details Date Type Department Care Team (Late st Contact Info) Description 10/29/2024 Refill [facility] & PEDS [address] [place], [place] [phone] Radha Hankins MD [address] [facility] [place], [place] [phone] Chronic bilateral low back pain with right-sided sciatica Social History Tobacco Use Types Packs/Day Years [...] Description 11/21/2024 10:30 AM EDT Office Visit [facility] MEDICINE [address] [place] [phone] Radha Hankins MD [address] [place] [phone] documented as of this encounter Visit Diagnoses Diagnosis Chronic bilateral low back pain with right-sided sciatica documented in this encounter Additional Health Concerns Assessment Noted Time PHQ-9 Depression Total Score: 15 023 11:36 AM EDT documented as of this encounter Care Teams Product Merchandiser Relationship Specialty Start Date End Date Radha Hankins MD [address] [place] [phone] PCP - General Family Medicine 05/10/17 documented as of this encounter
== END 2024-11-06 11:33 | disposition home or self-care (01) ==
LOC: HO.HPS 11:06
PROVIDERS: PCP Internal Medicine; Visit Provider Internal Medicine Pulmonary Disease
DX: J45.909 Unspecified asthma, uncomplicated (principal); Z91.09 Other allergy status, other than to drugs and biological substances
CPT/HCPCS: 99214

== ENCOUNTER → 2024-11-06 11:05 | Outpatient (BNVA) | payer OTHER, SELFPAY | PROVIDERS: PCP Internal Medicine; Visit Provider Internal Medicine Pulmonary Disease | DX: J45.909 Unspecified asthma, uncomplicated (principal); Z91.09 Other allergy status, other than to drugs and biological substances | CPT/HCPCS: 99212 ==

== ENCOUNTER 2024-11-21 10:45 | Outpatient (REF) | payer OTHER, SELFPAY ==
[2024-11-21 13:35] LABS: Estimated Average Glucose 128 mg/dL; Hemoglobin A1c % 6.1 % (<6.0)
[2024-11-21 14:20] LABS: Folate 8.9 ng/mL (> or = 4.0); Vitamin B12 234 pg/mL (200-900)
[2024-11-21 14:34] LABS: Albumin Level 4.4 g/dL (3.5-5.0); Alkaline Phosphatase 90 U/L (39-117); Anion Gap 15 (12-20); Aspartate Amino Transferase 45 U/L (5-31); Bilirubin Total 0.3 mg/dL (0.0-1.0); Blood Urea Nitrogen 10 mg/dL (9-16); Calcium 9.8 mg/dL (8.4-10.2); Carbon Dioxide 26 mmol/L (22-29); Chloride 104 mmol/L (96-108); Cholesterol 188 mg/dL (<200); Estimated Glomerular Filt Rate > 60; Glucose Random 101 mg/dL (60-115); HDL Cholesterol 45 mg/dL (>40); LDL Cholesterol Calculated 101 mg/dL (<100); Potassium 3.7 mmol/L (3.3-5.1); Sodium 141 mmol/L (135-145); TSH reflex Free T4 2.25 uIU/mL (0.32-4.0); Total Protein 7.4 g/dL (6.5-8.0); Triglycerides 211 mg/dL (<150); Vitamin D 25-OH Total 36.3 ng/mL (>30)
[2024-11-21 14:56] LABS: Alanine Aminotransferase 62 U/L (0-31)
[2024-11-21 16:44] LABS: Reflex LDLD? No
== END 2024-11-21 10:46 | disposition home or self-care (01) ==
LOC: HO.HHCL 10:45
PROVIDERS: Visit Provider Internal Medicine
DX: I10 Essential (primary) hypertension (principal); R73.03 Prediabetes; E53.8 Deficiency of other specified B group vitamins; E03.9 Hypothyroidism, unspecified
CPT/HCPCS: 36415; 80053; 80061; 82306; 82607; 82746; 83036; 84443

== ENCOUNTER 2025-01-16 10:27 | Outpatient (REF) | payer OTHER, SELFPAY ==
--- OUTSIDE RECORDS SUMMARY | 2025-01-16 10:59 | XMS_ITS | Encounter Summary ---
Author Organization [employer] Address [address] [facility] 7t [place] [address] Care Team Providers Care Modeling Teacher Name Role Phone Radha Hankins MD Primary Care Provider + Encounter Details Date Type Department Care Team (Late st Contact Info) Description 11/16/2022 Orders Only [facility] MED & PEDS [address] [place] [address] Sheela Williamson LPN Social History Tobacco Use [...] Care Team (Late st Contact Info) Description 04/01/2025 10:30 AM EDT Office Visit [facility] MEDICINE [address] [place] [address] Radha Hankins MD [address] [place] [address] documented as of this encounter Visit Diagnoses Not on filedocumented in this encounter Care Teams Modeling Teacher Relationship Specialty Start Date End Date Radha Hankins MD [address] [place] [address] PCP - General Family Medicine 05/10/17 documented as of this encounter
--- OUTSIDE RECORDS SUMMARY | 2025-01-16 10:59 | XMS_ITS | Encounter Summary ---
Author Organization [employer] Address [address] [facility] [address] [place] [address] Care Team Providers Care Director Environmental Name Role Phone Radha Hankins MD Primary Care Provider + Encounter Details Date Type Department Care Team (Late st Contact Info) Description 09/22/2022 Orders Only [facility] CH[facility] MED & PEDS [address] [place] [address] Sheela Williamson LPN Social History Tobacco Use [...] Description 04/01/2025 10:30 AM EDT Office Visit [facility] MEDICINE [address] [place] [address] Radha Hankins MD [address] [place] [address] documented as of this encounter Procedures Procedure [...] EST Narrative 10/19/2022 5:13 PM EST ? [facility] ?[address] ?[place] [address] ?XRay Report ? Signed ? Patient: Arpyl Phan ?MR#: [id number] ?? 9240 ? : 1955 ?Acct:[id number] ? Age/Sex: 67 / F ?ADM Date: 10/17/22 ? Loc: HO.XRAY ? Attending Dr: Sheela Crane DO ? Ordering Physician: Sheela Crane DO ?? Date of Service: 10/17/22 ?? Procedure(s): XR lumbar spine 2-3V ?? Accession Number(s): [id number] ? cc: Sheela Crane DO ? EXAMINATION: [...] OV> ?10/19/220 ? DD/ ? TD/TT: ? Activity Assistant: ? Procedure Note Donotuseinterpreter, Image - 10/19/[address] [address] XRay Report Signed Patient: Bienvenido Phan#: [id number] : 1955cct:[id number] Age/Sex: 67 / FADM Date: 10/17/22 Loc: HO.XRAY Attending Dr: Sheela Crane DO Ordering Physician: Sheela Crane DO Date of Service: 10/17/22 Procedure(s): XR lumbar spine 2-3V Accession Number(s): [id number] cc: Sheela Crane DO EXAMINATION: XR LUMBOSACRAL [...] in OV> 10/19/22 1710 DD/ 1212 TD/TT: Activity Assistant: us [facility] External Provider IMG XR PROCEDURES Final Result * XR Knee 3 Views Right (10/17/2022 12:12 PM EST) Anatomical Region Laterality Modality Lower Extremities, Knee Right Radiogra phic Imaging 10/17/2022 12:1 2 PM EST Narrative 10/19/2022 5:09 PM EST ? [facility] ?[address] ?[place] [address] ?XRay Report ? Signed ? Patient: Sylvester,Apryl ?MR#: [id number] ?? 9240 ? : 1955 ?Acct:[id number] ? Age/Sex: 67 / F ?ADM Date: 10/17/22 ? Loc: HO.XRAY ? Attending Dr: Sheela Crane DO ? Ordering Physician: Sheela Crane DO ?? Date of Service: 10/17/22 ?? Procedure(s): XR knee RT 3V ?? Accession Number(s): [id number] ? cc: Sheela Crane DO ? EXAMINATION: [...] 1707 ? DD/ 1212 ? TD/TT: ? Activity Assistant: ? Procedure Note Marilyn Bassett - 10/19/[address] [address] XRay Report Signed Patient: Apryl Phan#: [id number] : 7Acct:[id number] Age/Sex: 67 / FADM Date: 10/17/22 Loc: HO.CHRISTAAY Attending Dr: Sheela Crane DO Ordering Physician: Sheela Crane DO Date of Service: 10/17/22 Procedure(s): XR knee RT 3V Accession Number(s): [id number] cc: Sheela Crane DO EXAMINATION: XR BILATERAL [...] in OV> 10/19/22 1707 DD/ 1212 TD/TT: Activity Assistant: [facility] External Provider IMG XR PROCEDURES Final Result * XR Knee 3 Views Left (10/17/2022 12:12 PM EST) Anatomical Region Laterality Modality Lower Extremities, Knee Left Radiogra phic Imaging 10/17/2022 12:1 2 PM EST Narrative 10/19/2022 5:09 PM EST ? [facility] ?[address] ?[place] [address] ?XRay Report ? Signed ? Patient: Sylvester,Apryl ?MR#: [id number] ?? 9240 ? : 1955 ?Acct:[id number] ? Age/Sex: 67 / F ?ADM Date: 02/20/23 ? Loc: HO.XRAY ? Attending Dr: Sheela Crane DO ? Ordering Physician: Sheela Crane DO ?? Date of Service: 10/17/22 ?? Procedure(s): XR knee LT 3V ?? Accession Number(s): [id number] ? cc: Sheela Crane DO ? EXAMINATION: [...] 1707 ? DD/ 1212 ? TD/TT: ? Activity Assistant: ? Procedure Note Marilyn Bassett - 10/19/2022 [place] [address] XRay Report Signed Patient: Apryl Phan#: [id number] : 1955cct:[id number] Age/Sex: 67 / FADM Date: 10/17/22 Loc: HO.SABINA Attending Dr: Sheela Crane DO Ordering Physician: Sheela Crane DO Date of Service: 10/17/22 Procedure(s): XR knee LT 3V Accession Number(s): [id number] cc: Sheela Crane DO EXAMINATION: XR BILATERAL [...] in OV> 10/19/22 1707 DD/ 1212 TD/TT: Activity Assistant: [facility] External Provider IMG XR PROCEDURES Final Result * XR Hand 3+ Views Left (10/17/2022 12:12 PM EST) Anatomical Region Laterality Modality Upper Extremities, Hand Left Radiogra phic Imaging 10/17/2022 12:1 2 PM EST Narrative 10/19/2022 5:06 PM EST ? [facility] ?[address] ?[place] [address] ?XRay Report ? Signed ? Patient: Apryl Phan ?MR#: [id number] ?? 9240 ? : 1955 ?Acct:[id number] ? Age/Sex: 67 / F ?ADM Date: 10/17/22 ? Loc: HO.XRAY ? Attending Dr: Sheela Crane DO ? Ordering Physician: Sheela Crane DO ?? Date of Service: 10/17/22 ?? Procedure(s): XR hand LT min 3V ?? Accession Number(s): [id number] ? cc: Sheela Crane DO ? EXAMINATION: [...] 1703 ? DD/ 1212 ? TD/TT: ? Activity Assistant: ? Procedure Note Donluz elena, Image - 10/19/[address] [address] XRay Report Signed Patient: Bienvenido Phan#: [id number] 9240 : 1955cct:[id number] Age/Sex: 67 / FADM Date: 10/17/22 Loc: CAROLYNE Attending Dr: Sheela Crane DO Ordering Physician: Sheela Crane DO Date of Service: 10/17/22 Procedure(s): XR hand LT min 3V Accession Number(s): [id number] cc: Sheela Crane DO EXAMINATION: XR hand [...] in OV> 10/19/22 1703 DD/ 1212 TD/TT: Activity Assistant: [facility] External Provider IMG XR PROCEDURES Final Result * XR Hand 3+ Views Right (10/17/2022 12:12 PM EST) Anatomical Region Laterality Modality Upper Extremities, Hand Right Radiogra phic Imaging 10/17/2022 12:1 2 PM EST Narrative 10/19/2022 5:06 PM EST ? [facility] ?[address] ?[place] [address] ?XRay Report ? Signed ? Patient: Sylvester,Apryl ?MR#: [id number] ?? 9240 ? : 1955 ?Acct:[id number] ? Age/Sex: 67 / F ?ADM Date: 10/17/22 ? Loc: HO.XRAY ? Attending Dr: Sheela Crane DO ? Ordering Physician: Sheela Crane DO ?? Date of Service: 10/17/22 ?? Procedure(s): XR hand RT min 3V ?? Accession Number(s): [id number] ? cc: Sheela Crane DO ? EXAMINATION: [...] 1703 ? DD/ 1212 ? TD/TT: ? Activity Assistant: ? Procedure Note Marilyn Bassett - 10/19/2022 [facility] [address] [place] [address] XRay Report Signed Patient: SylvesterArieEnrrique#: [id number] 9240 : 7Acct:[id number] Age/Sex: 67 / FADM Date: 10/17/22 Loc: HOOSVALDO Attending Dr: Sheela Crane DO Ordering Physician: Sheela Crane DO Date of Service: 10/17/22 Procedure(s): XR hand RT min 3V Accession Number(s): [id number] cc: Sheela Crane DO EXAMINATION: XR hand [...] in OV> 10/19/22 1703 DD/ 1212 TD/TT: Activity Assistant: [facility] External Provider IMG XR PROCEDURES Final Result documented in this encounter Visit Diagnoses Not on filedocumented in this encounter Care Teams Director Environmental Relationship Specialty Start Date End Date Radha Hankins MD [address] [place] [address] PCP - General Family Medicine 05/10/17 documented as of this encounter
--- OUTSIDE RECORDS SUMMARY | 2025-01-16 10:59 | XMS_ITS | Clinical Summary ---
Author Organization [employer] Address [address] [facility] [address] [place] [address] Care Team Providers Care Microfilm Clerk Name Role Phone Radha Hankins MD Primary Care Provider + Allergies Active Allergy Reactions Criticality Noted Date Comments Morphine Anaphylaxis High 11/20/2014 Medications dextran 70-hypromellose (artificial tears) 0.1-0.3 % ophthalmic solution INSTILL 1 DROP INTO EACH EYE 3 TO 4 TIMES A DAY 30 mL 3 07/10/20 23 Active simvastatin (Zocor) 20 MG tablet TAKE 1 TABLET BY MOUTH AT BEDTIME 90 tablet 3 03/18/20 24 Active betamethasone valerate (Valisone) 0.1 % cream Apply 1 Application. topically Once per day. 15 g 3 04/25/20 24 Active Diclofenac Sodium 1 % gel Apply 2 g topically if needed in the morning and at bedtime (pain). 150 g 2 04/25/20 24 Active meclizine (Antivert) 25 MG tablet TAKE 1 TABLET BY MOUTH THREE TIMES DAILY NEEDED 60 tablet 5 05/30/20 24 Active albuterol (2.5 MG/3ML) 0.083% nebulizer solutionIndication s:Moderate persistent asthma with exacerbation Take 3 mL (2.5 mg) by nebulization every 4 (four) hours if needed for wheezing. 75 mL 3 08/07/20 24 025 Active albuterol 108 (90 Base) MCG/ACT inhalerIndications :Moderate persistent asthma with exacerbation Inhale 2 puffs every 6 (six) hours if needed for wheezing or shortness of breath. 18 g 3 08/07/20 24 Active triamcinolone (Kenalog) 0.1 % creamIndications:R anton Apply topically if needed in the morning and at bedtime (pain and swelling). 30 g 12/11/20 24 Active amLODIPine (Norvasc) 5 MG tabletIndications: Essential hypertension TAKE 1 TABLET BY MOUTH EVERY EVENING 90 tablet 3 10/07/19 25 Active ibuprofen 600 MG tablet TAKE 1 TABLET BY MOUTH EVERY 6 HOURS WITH FOOD NEEDED FOR PAIN 120 tablet 10/23/19 25 Active baclofen (Lioresal) 10 MG tabletIndications: Chronic bilateral low back pain with right-sided sciatica TAKE 1 TABLET BY MOUTH THREE TIMES DAILY IN THE MORNING, EVENING, AND BEDTIME NEEDED FOR MUSCLE SPASMS 60 tablet 2 10/30/19 25 Active cromolyn (Opticrom) 4 % ophthalmic solutionIndication s:Allergic conjunctivitis of both eyes Administer 1 drop into both eyes 4 times daily. 10 mL 3 11/22/19 25 Active fexofenadine (Faviola) 180 MG tablet Take 1 tablet (180 mg) by mouth if needed each day (Allergies). 30 tablet 3 11/22/19 25 025 Active venlafaxine XR (Effexor XR) 75 MG 24 hr capsuleIndications :Anxiety TAKE 1 CAPSULE BY MOUTH EVERY MORNING WITH FOOD 90 capsule 1 12/06/19 25 Active levothyroxine (Synthroid, Levoxyl) 100 MCG tabletIndications: Acquired hypothyroidism TAKE 1 TABLET BY MOUTH EVERY MORNING 90 tablet 1 12/06/19 25 Active fluticasone (Flonase) 50 MCG/ACT nasal sprayIndications:A llergic rhinitis, unspecified seasonality, unspecified trigger INSTILL 2 SPRAYS IN EACH NOSTRIL ONCE DAILY NEEDED FOR ALLERGIES 16 g 2 12/10/19 25 Active topiramate (Topamax) 25 MG tablet Take 1 tablet (25 mg) by mouth at bedtime. 30 tablet 11 12/31/19 25 026 Active metFORMIN XR (Glucophage-XR) 500 MG 24 hr tablet Take 1 tablet (500 mg) by mouth with evening meal. Do not crush, chew, or split. 30 tablet 11 11/22/19 25 025 Discontin ued(Side effects) Active Problems Problem Noted Date Diagnosed Date Class 3 severe obesity due t o excess calories with serious comorbidity and body mass index (BMI) of 40.0 to 44.9 in adult 11/21/2024 Assessment & Plan (11/21/2024 10:36 AM EDT): Discussed re weight reduction options including exercise, life style modifications, diet. Recommended to decrease soda and sugary beverage consumption, increase protein intake with meals (at least 1 portion of protein with each meal) to assist with satiety, increase dietary fiber Recommended at least 150 min/week of moderate intensity exercise. I will start her on metformin due to IFG and fu w her in 4 to 6 weeks, discussed with her regarding risk of weakness, tiredness, GI symptoms or headache, she will call as needed if she does not tolerate it. Polyp of colon 11/21/2024 Assessment & Plan (11/21/2024 10:35 AM EDT): S/p colonoscopy 2017, will refer for follow-up colonoscopy Encounter for screening mamm ogram for malignant neoplasm of breast 11/21/2024 Obesity, morbid 04/25/2024 Assessment & Plan (12/30/2024 5:15 PM EDT): Did not tolerate metformin, I will start Topamax nightly and follow-up weight and tolerance in 4 to 6 weeks We discussed about going down meals and calorie portions Assessment & Plan (05/23/2024 9:22 AM EDT): See previous OV note Will fu on Wegovy approval Continue with current POC and fu with me in 3m Assessment & Plan (04/25/2024 2:06 PM EDT): Discussed re weight reduction options including exercise, life style modifications, diet and referral to facilities specialist. Recommended to decrease soda and sugary [...] of right ankle 04/25/2024 Assessment & Plan (12/30/2024 5:14 PM EDT): Recurrent pain and ankle edema. Advised her to wear ankle brace regularly especially for ambulation next Follow-up with me in 6 weeks and determine need for orthopedic referral or PT referral Advised to check BP as leg edema may be related to hypertension. Assessment & Plan (05/23/2024 9:21 AM EDT): Persistent pain, I advised to wear an OTC ankle brace, we'll fu with DME provider re ankle brace with support. Advised to take tylenol, elevate ankle and apply ice prn pain, Allergic conjunctivitis of both eyes 08/15/2023 Assessment & Plan (11/21/2024 10:38 AM EDT): DC Zyrtec and start Faviola Use cromolyn eyedrops 3 times per day Consider using sunglasses when walking outside Assessment & Plan (08/15/2023 11:01 AM EST): Continue zyrtec Use cromolyn eye drops TID Allergies 12/23/2022 Assessment & Plan (12/23/2022 12:05 PM EDT): recommended to use cetirizine and natural tears eye drops continue using flovent and albuterol PRN for asthma exacerbation Cervical spine disease 12/21/2022 Tendinitis of left [...] Plan (11/25/2022 11:07 AM EDT): See above. Screening mammogram for breast cancer 11/25/2022 Screen for colon cancer 11/25/2022 Essential hypertension 10/13/2022 Assessment & Plan (11/21/2024 10:35 AM EDT): Stage I, uncontrolled. Advised to check BP at home 3 times per week and follow-up with me in 6 weeks to see if she needs adjustment of medications Continue low-dose amlodipine and check labs. Advised regarding low-salt diet, weight loss and increase exercise Assessment & Plan (08/07/2024 12:32 PM EST): Mildly elevated I advise to f/u with PCP Prediabetes 10/13/2022 Assessment & Plan (11/21/2024 10:38 AM EDT): We have a lengthy discussion regarding low calorie diet and exercise, she has been to dietitian multiple times and started going to the gym. Will start metformin XR 500 mg/day and follow-up in 4 weeks to check for side effects including GI symptoms, weakness, dizziness and headache. She may be a good candidate for Wegovy that will also help with weight reduction, consider bariatric surgery Assessment & Plan (05/23/2024 9:22 AM EDT): Needs labs Will fu with pharmacy re Ankit as it would be of great benefit [...] depression, recurrent, chronic 10/13/2022 Assessment & Plan (11/21/2024 10:40 AM EDT): PHQ 2 is 0 today . She is doing well on venlafaxine 75 mg Patient feels safe at home and is able to reach out for safety. We discussed about coping mechanisms with anxiety including distraction, breathing exercises, music and she is aware of the crisis number and to come to our walk- in center. Follow-up in 6 months Assessment & Plan (04/25/2024 12:05 PM EDT): [...] at last visit. Moderate persistent asthma 10/13/2022 Assessment & Plan (11/21/2024 10:34 AM EDT): Controlled on Symbicort twice daily. She will hide influenza vaccination today, declined COVID booster and PCV is up-to-date. Follow-up with health and safety instructor Chronic neck pain 10/13/2022 Vertigo 10/13/2022 Chronic venous insufficiency 10/13/2022 Assessment & Plan (04/25/2024 12:49 PM EDT): Advised to use compression stockings up to knee level. Advised regarding weight reduction. Cobalamin deficiency 01/29/2019 Assessment & Plan (04/25/2024 12:49 PM EDT): Recheck B12 levels. 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 Hypothyroidism 2012 Assessment & Plan (11/21/2024 10:36 AM EDT): Check TSH, continue levothyroxine 100 mcg for now we will call back as needed to adjust medications, with results Acquired hypothyroidism 2012 Assessment & Plan (04/25/2024 12:07 PM EDT): On Levothyroxine 100 mg, order TSH. Panic disorder without agoraphobia 03/22/2012 Depressive disorder 03/22/2012 Mixed stress and urge urinary incontinence 01/17 Resolved Problems Problem Noted Date Diagnosed Date Resolved Date Moderate persistent asthma with exacerbation 11/21/2024 Assessment & Plan (08/07/2024 12:32 PM EST): Patient educated to avoid theodora tiggers Letter for housing will be sign Referral to pulmonology I will extend his prednisone treatment 50mg for 5 more days C/w albuterol PRN Rash 08/07/2024 11/21/2024 Impacted cerumen of right ear 08/15/2023 11/21/2024 Assessment & Plan (08/15/2023 10:57 AM EST): She will start Deprox ointment solution 5 x /day on right ear 1 wk prior to RN visit for ear lavage Otitis externa 08/15/2023 11/21/2024 Assessment & Plan (08/15/2023 11:00 AM EST): Counseled to avoid scratching or picking of the ear Use Cortisporin ear drops 3 x /day Elevated blood pressure reading 12/21/2022 11/21/2024 LOCO (dyspnea on exertion) 11/25/2022 Assessment & Plan (11/25/2022 11:07 AM EDT): Counseled regarding weight reduction I gave her information about [facility] [place] reduction program. FU next appointment IFG (impaired fasting glucose) 10/13/2022 10/13/2022 Posterior rhinorrhea 03/06/2018 025 Mild intermittent asthma 05/19/2017 Bacterial pneumonia 07/05/2016 11/22/19 25 Childhood obesity 03/22/2012 11/21/2024 Asthma 03/22/2012 11/21/2024 Anxiety state 03/22/2012 11/21/2024 Allergic rhinitis 08/28/1957 11/21/2024 Assessment & Plan (03/08/2024 11:59 AM EDT): Advised to use NS + Flonase daily Advised re vapor showers Assessment & Plan (08/15/2023 11:02 AM EST): Use flonase daily, cont zyrtec FU in 1 month, consider allergy testing Encounters Date Type Department Care Team Description 12/30/2024 2:00 PM EDT Telemedicine [facility] [address] [place] [phone] Radha Hankins MD Obesity, morbid (CMS/HCC) (Primary Dx); Sprain of anterior talofibular ligament of right ankle, subsequent encounter; Tubular adenoma 12/30/2024 Travel 12/26/2024 Telephone [facility] [address] [place] [address] Radha Hankins MD chart prep 12/07/2024 Refill [facility] [address] [place] [address] Radha Hankins MD Allergic rhinitis, unspecified seasonality, unspecified trigger 12/05/2024 Refill [facility] [address], [place] [phone] Radha Hankins MD Anxiety; Acquired hypothyroidism; Allergic rhinitis, unspecified seasonality, unspecified trigger; Allergy, subsequent encounter 11/21/2024 10:30 AM EDT Office Visit [facility] [address] [place] [address] Radha Hankins MD Allergic conjunctivitis of both eyes (Primary Dx); Moderate persistent asthma without complication; Essential hypertension; Acquired hypothyroidism; Prediabetes; Class 3 severe obesity due to excess calories with serious comorbidity and body mass index (BMI) of 40.0 to 44.9 in adult (CMS/HCC); Major depression, recurrent, chronic (CMS/HCC); Encounter for screening mammogram for malignant neoplasm of breast; Screen for colon cancer; Polyp of colon, unspecified part of colon, unspecified type; Dietary counseling; Exercise counseling; Allergy, subsequent encounter; Encounter for immunization 11/21/2024 Travel 11/12/2024 Patient Outreach [facility] [address], [place] [phone] Radha Hankins MD Pre-visit Planning (SDOH screening negative and tobacco screening negative) 10/29/2024 Refill [facility] [address], [place] [phone] Radha Hankins MD Chronic bilateral low back pain with right-sided sciatica 10/22/2024 Refill [facility] [address], [place] [phone] Radha Hankins MD from Last 3 Months Immunizations Immunization Administration Dates Next Due Hep B, adult 05/07/2007,02/12/2007,03/21/2006 Influenza Injectable Quadriv alant Preservative Free IIV4 MDCK 08/12/2020 Influenza injectable quadriv alent IIV4 with preservative 05/23/2018,05/19/2017 Influenza injectable quadriv alent preservative free 05/17/2019 Influenza, IIV3, injectable 05/19/2014, 1 Influenza, Split (incl. dolores fied surface antigen) 06/03/2013,2012 Influenza, seasonal, injecta ble, preservative free 11/21/2024 TD (adult), 2 Lf tetanus tox oid, [...] is your housing situation today? I have josepura jackman 03/28/[address] you [...] from getting things needed for daily living? No 11/12/2024 Utilities Answer Date Recorded In the past 12 months, has t he electric, gas, oil or water company threatened to shut off services in your home? No 03/28/2024 Depression Answer Date Recorded Patient Health Questionnaire-2 Score 0 11/21/2024 Internet Access Answer Date Recorded Internet Access Q1 No 11/12/2024 Internet Access Q2 I do not want or need it 10/26 Comments No Sex and Gender Information Value Date Recorded Sex Assigned at Female 06/27/2022 10:17 AM EDT Legal Sex Female 10:17 AM EDT Gender Identity Female 06/27/2022 10:17 AM EDT Sexual Orientation Choose not to disclose 2021 10:17 AM EDT Last Filed Vital Signs Vital Sign Reading Time Taken Comments Blood Pressure 145/80 11/21/2024 10:15 AM EDT Pulse 83 11/21/2024 9:57 AM EDT Temperature 35.7 ??C (96.3 ??F) 11/21/2024 9:57 AM ED T Respiratory Rate 18 11/21/2024 9:57 AM EDT Oxygen Saturation 97% 11/21/2024 9:57 AM EDT Inhaled Oxygen Concentration - - Weight 104 kg (229 lb) 11/21/2024 9:57 AM EDT Height 152.4 cm (5') 11/21/2024 9:57 AM EDT Body Mass Index 44.72 11/21/2024 9:57 AM EDT Plan of Treatment Upcoming Encounters Date Type Department Care Team (Late st Contact Info) Description 04/01/2025 10:30 AM EDT Office Visit [facility] [address] [place] [phone] Radha Hankins MD [address] [place] [address] Health Maintenance Due Date Last Done Comments [...] - Td or Tdap) 06/03/2023 06/03/2013, 02/12/2007 Mammogram 02/03/2024 02/02/2023, 06/0 03/2023, 02/02/2023, Additional history exists COVID-19 Vaccine ( season) 2024 09/06/2022, 01/28/2021, 12/31/2020 SDOH Screening 11/12/2025 11/12/2024 Depression Screening 11/21/2025 11/21/2024, 12/24/19 Diabetes: Hemoglobin A1C 11/21/2025 025, 11/21/2024, 10/09/2023, Additional history exists Tobacco Screening 11/21/2025 11/21/2024 Lipid Panel 11/21/2029 11/21/2024, 07/28, 12/23/2022 Hepatitis B Vaccines Completed 05/07/2007, 02/12/2007, 03/21/2006 Influenza Vaccine Completed 11/21/2024, , 05/17/2019, Additional history exists HIB Vaccines Aged Out No longer eligi [...] patient's age to complete this topic Meningococcal B Vaccine Aged Out No l onger eligible based on patient's age to complete [...] Procedure Name Priority Date/Time Associated Diagnosis Comments LIPID PANEL WITH REFLEX TO DIRECT LDL Routine 11/21/2024 10:50 AM EDT Prediabetes Essential hypertension TSH W/REFLEX TO FT4 Routine 11/21/2024 1 0:50 AM EDT Acquired hypothyroidism COMPREHENSIVE METABOLIC PANEL Routine 11/21/2024 10:50 AM EDT Essential hypertension VITAMIN B12/FOLATE, SERUM PANEL Routine 11/21/2024 10:50 AM EDT Cobalamin deficiency HEMOGLOBIN A1C Routine 11/21/2024 10:50 AM EDT Prediabetes VITAMIN D,25-OH,TOTAL,IA Routine 11/21/2024 10:50 AM EDT Prediabetes POCT GLYCATED HEMOGLOBIN, TOTAL Routine 11/21/2024 10:10 AM EDT Prediabetes POCT GLUCOSE Routine 11/21/2024 10:10 AM EDT Prediabetes BI MAMMOGRAM SCREENING BILATERAL Routine 02/02/2023 3:41 PM EDT Screening mammogram for breast cancer HM COLONOSCOPY Routine 07/04/2018 from Last 3 Months or Most Recently Relevant to Health Maintenance Results * Vitamin D, 25-Hydroxy, Total, Immunoassay (11/21/2024 10:50 AM EDT) Pathologist [facility] Vitamin D 25-OH Total 36.3 >30 ng/mL [facility] Comment: Health Based Reference Values*< 20 ??ng/mL ??[id number] ng/mL ??Insufficient> 30 ??ng/mL ??Sufficient*Syed MCPHERSON. N Engl J Med. 2007;357:266-280There is no well-established upper level of normal vitamin Dlevels. Some laboratories use 50 ng/mL as an upper limit ofnormal. However, toxicity is patient-dependent and may occurat any level. Careful correlation with the patient'spresentation is necessary and, if there is concern forvitamin D toxicity, treatment should be consideredirrespective of the serum level.Care must be taken in interpreting Vitamin D results fromdifferent laboratories and methodologies. ??Published datademonstrated that results from patients undergoinghemodialysis may show a negative bias when tested withvarious automated 25-OH vitamin D assays when compared toLC- MS/MS.When testing samples from patients whose predominant form ofVitamin D is Vitamin D2, such as patients receiving VitaminD2 supplementation, results that are subtherapeutic shouldbe confirmed with another method such as LC-MS/MS. Blood 11/21/2024 10:5 0 AM EDT 11/21/2024 1:11 PM EDT Radha Hankins MD LAB BLOOD ORDERABLES Fin al Result Performing Organization Address City/[facility]/ZIP Co de Phone Number [facility] [address] [place] [phone] * Vitamin B12/Folate, Serum Panel (11/21/2024 10:50 AM EDT) Vitamin B12 234 200 - 900 pg/mL [facility] Comment:NORMAL 200-900 PG/ML INDETERMINATE 160-199 PG/ML DEFICIENT < 160 PG/ML Folate 8.9 > or = 4.0 ng/mL [facility] Comment:Reference Values:> o r = 4.0 ng/mL< 4.0 ng/mL suggests folate deficiency Methotrexate, aminopterin and folinic acid(leucovorin) are chemotherapeutic agents whose molecularstructures are similar to folate; therefore, the Architectfolate assay cannot be used for patients using these drugs. Blood Venous blood specimen / Unknown 11/21/2024 10:50 AM EDT 11/21/2024 1:11 PM EDT Radha Hankins MD LAB BLOOD ORDERABLES Fin al Result Performing Organization Address City/[facility]/ZIP Co de Phone Number [facility] [address] [place] [phone] * TSH with Reflex to Free T4 (11/21/2024 10:50 AM EDT) TSH reflex Free T4 2.25 0.32 - 4.0 uIU/mL [facility] Blood 11/21/2024 10:5 0 AM EDT 11/21/2024 1:11 PM EDT Radha Hankins MD LAB BLOOD ORDERABLES Fin al Result Performing Organization Address City/[facility] [[email or web address]] Co de Phone Number [facility] [address] [place] [address] [phone] * (ABNORMAL) Lipid Panel with Reflex to Direct LDL (11/21/2024 10:50 AM EDT) Triglycerides 211(H) <150 mg/dL [facility] Comment:Desirable Triglyceri de: less than 150 mg/dLBorderline High Triglyceride 150-199 mg/dLHigh Triglyceride: 200-499 mg/dLVery High Triglyceride: greater than or equal to 5OO mg/dL Cholesterol 188 <200 mg/dL [facility] Comment:Desirable Cholestero l: less than 200 mg/dLBorderline High Cholesterol: 200-239 mg/dLHigh Cholesterol: greater than 239 mg/dL LDL Cholesterol Calculated 101(H) <100 mg/dL [facility] Comment:Desirable LDL: less than 100 mg/dLNear Optimal/Above Optimal LDL: 110- 129 mg/dLBorderline High LDL: 130-159 mg/dLHigh LDL: 160-189 mg/dLVery High LDL: greater than or equal to 190 mg/dL HDL Cholesterol 45 >40 mg/dL [facility] Comment:Desirable HDL: great er than 40 mg/dL Note: This HDL assay may give artificially low results in patients with liver disease. Blood 11/21/2024 10:5 0 AM EDT 11/21/2024 1:11 PM EDT Radha Hankins MD LAB BLOOD ORDERABLES Fin al Result Performing Organization Address City/[facility]/ZIP Co de Phone Number [facility] [address] [place] [phone] * (ABNORMAL) Hemoglobin A1c (11/21/2024 10:50 AM EDT) Hemoglobin A1c 6.1(H) <6.0 % [facility] Comment:Hemoglobin A1C Refer ence Range Adults: 4.8 - 6.0 % Non diabetic: < 6.0 % Goal: < 7.0 %Additional Action Suggested: > 8.0 %Note: Hemoglobin A1c results are invalid for patients with abnormal amounts of HbF. Blood transfusions may impact the HbA1c concentration in the patient sample. Estimated Average Glucose 128 mg/dL [facility] Comment:eAG = Estimated ave rage glucose which is %A1C expressed asaverage glucose, using the formula of the I4P-DnnbhfhNqazmva Glucose study (ADAG), Diabetes Care, Vol.31,#8,Mar. 2007 Blood Venous blood specimen / Unknown 11/21/2024 10:50 AM EDT 11/21/2024 1:11 PM EDT us Radha Hankins MD LAB BLOOD ORDERABLES Fin al Result [facility] [address] [place] [phone] * (ABNORMAL) Comprehensive Metabolic Panel (11/21/2024 10:50 AM EDT) Sodium 141 135 - 145 mmol/L [facility] Potassium 3.7 3.3 - 5.1 mmol/L [facility] Chloride 104 96 - 108 mmol/L [facility] Carbon Dioxide 26 22 - 29 mmol/L [facility] Anion Gap 15 12 - 20 [facility] Urea Nitrogen (BUN) 10 9 - 16 mg/dL [facility] Creatinine, Serum 0.72 0.5 - 1.4 mg/dL [facility] Estimated Glomerular Filt Rate >60 [facility] Comment:Chronic Kidney Disea se: Estimated GFR < 60 mL/min/[id number] Kidney Disease: Estimated GFR < 15 mL/min/1.73m2 Glucose 101 60 - 115 mg/dL [facility] Calcium 9.8 8.4 - 10.2 mg/dL [facility] Bilirubin, Total 0.3 0.0 - 1.0 mg/dL [facility] Aspartate Amino Transferase 45(H) 5 - 31 U/L [facility] Alanine Aminotransferase 62(H) 0 - 31 U/L [facility] Total Protein 7.4 6.5 - 8.0 g/dL [facility] Albumin Level 4.4 3.5 - 5.0 g/dL [facility] Alkaline Phosphatase 90 39 - 117 U/L [facility] Blood Venous blood specimen / Unknown 11/21/2024 10:50 AM EDT 11/21/2024 1:11 PM EDT Radha Hankins MD LAB BLOOD ORDERABLES Fin al Result [facility] [address] [place], [place] [phone] * (ABNORMAL) POCT HGB A1C (11/21/2024 10:10 AM EDT) Hemoglobin A1C 6.1(A) 4.0 - 6.0 % QC Media Lot # [id number] Lot# Expiration Date [id number] Blood 11/21/2024 10:1 0 AM EDT Radha Hankins MD POINT OF CARE TEST ENTER /EDIT ORDERABLES Final Result * POCT Glucose (11/21/2024 10:10 AM EDT) Glucose Blood, POC 111 60 - 200 mg/dL QC Media Lot # [id number] Lot# Expiration Date [id number] Blood Capillary blood specimen / Unknown 11/21/2024 10:10 AM EDT Radha Hankins MD POINT OF CARE TEST ENTER /EDIT ORDERABLES Final Result * BI Mammogram Screening Bilateral (02/02/2023 3:41 PM EDT) Anatomical Region Laterality Modality Breast Bilateral Mammography Radha Hankins MD IMG BI PROCEDURES Final Result * (ABNORMAL) Hm Colonoscopy (07/04/2018) Colonoscopy Abnormal( A) Normal Comment:repeat 5years us Historical Provider HEALTH MAINTENANCE Edited Result - Final from Last 3 Months or Most Recently Relevant to Health Maintenance Insurance [facility] (HMO D-SNP) ANA M HALL [id number] Care Teams Microfilm Clerk Relationship Specialty Start Date End Date Radha Hankins MD [address] [place] [phone] PCP - General Family Medicine 05/10/17
--- OUTSIDE RECORDS SUMMARY | 2025-01-16 10:59 | XMS_ITS | Encounter Summary ---
Author Organization [employer] Address [address] [facility] 7t [place] [address] Care Team Providers Care Buyer Renter Name Role Phone Radha Hankins MD Primary Care Provider + Reason for Visit * Reason Onset Date Comments ER Follow-up 08/06/2024 Encounter Details Date Type Department Care Team ([facility] st Contact Info) Description 08/06/2024 Telephone [facility] MEDICINE [address] [place], [place] [phone] Radha Hankins MD [address] [place], [place] [phone] ER Follow-up Social History Tobacco Use Types [...] Phan to triage below. Confirms seen at [facility] ED for asthma dn [...] 08/07/2024 9:30 AM Kalyn Noland MD MEDICINE [facility] ' Video visit offer not recorded Positive Triage Question: * Patient wants to be seen * All higher-acuity triage questions were negative Care Advice Discussed: * Continue Treatment * Reasons To Call Back - You become worse * Telephone Encounter - Brody Phan - 08/06/2024 10:01 AM EST Patient calling to report ED visit on : Date: 08/04/24 Hospital: [facility] Seen for: Asthma Attack Symptom: Cough Outcome: Talk to a nurse or provider within 15 minutes Reason: Any trouble breathing through the mouth documented in this encounter Plan of Treatment Upcoming Encounters Date Type Department Care Team (Late st Contact Info) Description 04/01/2025 10:30 AM EDT Office Visit [facility] MEDICINE [address] [place] [address] Radha Hankins MD [address] [place] [phone] documented as of this encounter Visit Diagnoses Not on filedocumented in this encounter Additional Health Concerns Assessment Noted Time PHQ-9 Depression Total Score: 15 023 11:36 AM EDT documented as of this encounter Care Teams Buyer Renter Relationship Specialty Start Date End Date Radha aHnkins MD [address] [place] [address] [phone] PCP - General Family Medicine 05/10/17 documented as of this encounter
--- OUTSIDE RECORDS SUMMARY | 2025-01-16 10:59 | XMS_ITS | Encounter Summary ---
Author Organization [employer] Address [address] [facility] 7t [place] [address] Care Team Providers Care Watch Dial Maker Name Role Phone Radha Hankins MD Primary Care Provider + Encounter Details Date Type Department Care Team (Late st Contact Info) Description 12/05/2022 Telephone [facility] MEDICINE [address] [place] [address] [phone] Sara John LPN Social History Tobacco Use [...] Description 04/01/2025 10:30 AM EDT Office Visit [facility] MEDICINE [address] [place] [phone] Radha Hanknis MD [address] [place] [address] [phone] documented as of this encounter Visit Diagnoses Not on filedocumented in this encounter Care Teams Watch Dial Maker Relationship Specialty Start Date End Date Radha Hankins MD [address] [place] [phone] PCP - General Family Medicine 05/10/17 documented as of this encounter
--- OUTSIDE RECORDS SUMMARY | 2025-01-16 10:59 | XMS_ITS | Encounter Summary ---
Author Organization [employer] Address [address] [facility] 7t [place] [address] Care Team Providers Care Dock Or Pier Laborer Name Role Phone Radha Hankins MD Primary Care Provider + Encounter Details Date Type Department Care Team (Late st Contact Info) Description 12/19/2022 Orders Only [facility] CHC MED & PEDS [address] [place], [place] [phone] Sheela Williamson LPN Social History Tobacco Use [...] Description 04/01/2025 10:30 AM EDT Office Visit [facility] MEDICINE [address] [place], [place] [phone] Radha Hankins MD [address] [place] [address] documented as of this encounter Visit Diagnoses Not on filedocumented in this encounter Care Teams Dock Or Pier Laborer Relationship Specialty Start Date End Date Radha Hankins MD [address] [place] [address] PCP - General Family Medicine 05/10/17 documented as of this encounter
--- OUTSIDE RECORDS SUMMARY | 2025-01-16 10:59 | XMS_ITS | Encounter Summary ---
Author Organization [employer] Address [address] [facility] 7t [place] [address] Care Team Providers Care Bullet Casting Operator Name Role Phone Radha Hankins MD Primary Care Provider + Encounter Details Date Type Department Care Team (Late st Contact Info) Description 02/14/2023 Abstract [facility] MEDICINE [address] [place], [place] [phone] Radha Hankins MD [address] [place], [place] [phone] Social History Tobacco Use Types Packs/Day Years [...] Description 04/01/2025 10:30 AM EDT Office Visit [facility] MEDICINE [address] [place], [place] [phone] Radha Hankins MD [address] [place], [place] [phone] documented as of this encounter Visit Diagnoses Not on filedocumented in this encounter Additional Health Concerns Assessment Noted Time PHQ-9 Depression Total Score: 15 023 11:36 AM EDT documented as of this encounter Care Teams Bullet Casting Operator Relationship Specialty Start Date End Date Radha Hankins MD [address] [place] [phone] PCP - General Family Medicine 05/10/17 documented as of this encounter
--- OUTSIDE RECORDS SUMMARY | 2025-01-16 10:59 | XMS_ITS | Encounter Summary ---
Author Organization [employer] Address [address] [facility] 7t [place] [address] Care Team Providers Care Vocational Rehabilitation Counselor Name Role Phone Radha Hankins MD Primary Care Provider + Encounter Details Date Type Department Care Team ([facility] Contact Info) Description 10/20/2022 Orders Only [facility] CHC MED & PEDS [address] [place], [place] [phone] Sheela Williamson LPN Social History Tobacco Use [...] Description 04/01/2025 10:30 AM EDT Office Visit [facility] MEDICINE [address] [place] [address] Radha Hankins MD [address] [place] [address] documented as of this encounter Visit Diagnoses Not on filedocumented in this encounter Care Teams Vocational Rehabilitation Counselor Relationship Specialty Start Date End Date Radha Hankins MD [address] [place] [address] PCP - General Family Medicine 05/10/17 documented as of this encounter
--- OUTSIDE RECORDS SUMMARY | 2025-01-16 10:59 | XMS_ITS | Encounter Summary ---
Author Organization [employer] Address [address] [facility] 7t [place] [address] Care Team Providers Care Glass Decorator Name Role Phone Rahda Hankins MD Primary Care Provider + Reason for Visit * Reason Onset Date Comments Appointment Request 04/10/2024 Encounter Details Date Type Department Care Team ([facility] st Contact Info) Description 04/10/2024 Telephone [facility] MEDICINE [address] [place], [place] [phone] Radha Hankins MD [address] [place], [place] [phone] Appointment Request Social History Tobacco Use Types [...] like a sooner appt than what the writer editor has offered documented in this encounter Plan of Treatment Upcoming Encounters Date Type Department Care Team (Late st Contact Info) Description 04/01/2025 10:30 AM EDT Office Visit [facility] MEDICINE [address] [place] [address] Radha Hankins MD [address] [place] [address] documented as of this encounter Visit Diagnoses Not on filedocumented in this encounter Additional Health Concerns Assessment Noted Time PHQ-9 Depression Total Score: 15 023 11:36 AM EDT documented as of this encounter Care Teams Glass Decorator Relationship Specialty Start Date End Date Radha Hankins MD [address] [place], [place] [phone] PCP - General Family Medicine 05/10/17 documented as of this encounter
== END 2025-01-16 10:28 | disposition home or self-care (01) ==
LOC: HO.MAMMO 10:27
PROVIDERS: PCP Internal Medicine; Visit Provider Internal Medicine
DX: Z12.31 Encounter for screening mammogram for malignant neoplasm of breast (principal)
CPT/HCPCS: 77063; 77067

== ENCOUNTER → 2025-01-16 11:00 | Outpatient (BNV) | payer OTHER, SELFPAY | PROVIDERS: PCP Internal Medicine; Visit Provider Internal Medicine | DX: Z12.31 Encounter for screening mammogram for malignant neoplasm of breast (principal) | CPT/HCPCS: 77063; 77067 ==

== ENCOUNTER 2025-05-13 13:23 | Outpatient (REF) | payer OTHER, SELFPAY ==
--- OUTSIDE RECORDS SUMMARY | 2025-05-13 11:20 | XMS_ITS | Encounter Summary ---
Author Organization [employer] Address [address] [facility] 7t [place] [address] Care Team Providers Care Internal Sales Engineer Name Role Phone Radha Hankins MD Primary Care Provider + Reason for Visit * Reason Comments UTI Encounter Details Date Type Department Care Team ([facility] st Contact Info) Description 05/13/2025 11:20 AM EDT Office Visit [facility] [address] [place] [address] Aria Edmonds MD [address] [place], [place] [phone] Acute cystitis with hematuria (Primary Dx); UTI symptoms; Vaginal itching Social History Tobacco Use Types Packs/Day Years [...] Access Answer Date Recorded Internet Access Q1 Yes 03/25/2025 Internet Access Q2 I do not want or need it 02/26 Comments No Sex and Gender Information Value Date Recorded Sex Assigned at Female 06/27/2022 10:17 AM EDT Legal Sex Female 10:17 AM EDT Gender Identity Female 06/27/2022 10:17 AM EDT Sexual Orientation Choose not to disclose 2021 10:17 AM EDT documented as of this encounter Last Filed Vital Signs Vital Sign Reading Time Taken Comments Blood Pressure 126/69 05/13/2025 11:39 AM EDT Pulse 83 05/13/2025 11:39 AM EDT Temperature 36.8 C (98.2 F) 05/13/2025 11:39 AM EDT Respiratory Rate 18 05/13/2025 11:39 AM EDT Oxygen Saturation 99% 05/13/2025 11:39 AM EDT Inhaled Oxygen Concentration - - Weight 102 kg (224 lb) 05/13/2025 11:39 AM EDT Height - - Body Mass Index 43.75 11/21/2024 9:57 AM EDT documented in this encounter Progress Notes * Aria Edmonds MD - 05/13/2025 11:20 AM EDT SUBJECTIVE Apryl Phan is a 69 y.o. female patient of Radha Hankins MD who presents for burning with urination. ROLF Pink was well until about 1 week ago when she developed pain after urination and marked perineal itching. Also started having some lower abdominal pain. No frequent urination or urination of small amounts. She denies flank pain, nausea, or vomiting, but last night she had a low grade fever that she did not measure. Review of Systems Constitutional: Positive for fever. Negative for chills. Gastrointestinal: Positive for abdominal pain. Genitourinary: Positive for dysuria. Vaginal itch Neurological: Positive for headaches. OBJECTIVE BP 126/69 (BP Location: Right arm, Patient Position: Sitting, BP Cuff Size: Adult) Pulse 83 Temp 98.2 ??F (36.8 ??C) (Temporal) Resp 18 Wt 224 lb (102 kg) SpO2 99% BMI 43.75 kg/m?? Physical Exam Constitutional: Appearance: She is not toxic-appearing. HENT: Head: Normocephalic. Mouth/Throat: Mouth: Mucous membranes are moist. Eyes: Conjunctiva/sclera: Conjunctivae normal. Cardiovascular: Rate and Rhythm: Normal rate. Pulmonary: Effort: Pulmonary effort is normal. Abdominal: General: Abdomen is flat. Bowel sounds are normal. Tenderness: There is abdominal tenderness (mild LLQ tenderness w/o mass or rebound). There is no right CVA tenderness or left CVA tenderness. Genitourinary: Comments: Mild erythema internal labia Skin: Capillary Refill: Capillary refill takes less than 2 seconds. Neurological: General: No focal deficit present. Mental Status: She is alert. Psychiatric: Mood and Affect: Mood normal. Behavior: Behavior normal. Assessment/Plan Assessment/Plan Diagnoses and all orders for this visit: Acute cystitis with hematuria: Has some mild non-reproducible tenderness in LLQ but no suprapubic tenderness. UA c/u UTI. Advised her to start antibiotic APOLINAR and to RTC if pain in LLQ persists or worsens. - sulfamethoxazole-trimethoprim (Bactrim DS) 800-160 MG tablet; Take 1 tablet by mouth 2 times daily for 3 days. UTI symptoms - Culture, Urine, Routine - POCT urinalysis dipstick manually resulted - Bacterial Vaginosis Vaginal itching : Perineal mild erythema; will test for vaginal candidasis and treat with intravaginal miconazole if present. No future appointments. documented in this encounter Plan of Treatment Scheduled Orders Name Type Priority Associated Diagnoses Orde r Schedule Culture, Urine, Routine Microbiology Routine UTI symptoms Ordered: 05/13/2025 documented as of this encounter Procedures Procedure Name Priority Date/Time Associated Diagnosis Comments POCT URINALYSIS DIPSTICK Routine 05/13/2025 11:41 AM EDT UTI symptoms BACTERIAL VAGINOSIS PANEL Routine 05/13/2025 11:40 AM EDT UTI symptoms documented in this encounter Results * (ABNORMAL) POCT urinalysis dipstick manually resulted (05/13/2025 11:41 AM EDT) Color, UA Yellow Comment:Dark Clarity, UA Cloudy Glucose, UA Negative Bilirubin, UA Negative Ketones, UA Negative Spec Grav, UA 1.020 Blood, UA Positive(A) Negative, None Detected Comment:Large pH, UA 7.0 Protein, UA 2+ 125++ Comment:100MG Urobilinogen, UA 0.2 Leukocytes, UA Many(A) Negative, Rare, Trace Comment:Large Nitrite, UA Positive(A) Negative, None Detected Appearance, UA OK Urine 05/13/2025 11:4 1 AM EDT Aria Edmonds MD POINT OF CARE TEST ENTER/EDIT ORDERABLES Final Result * (ABNORMAL) Bacterial Vaginosis (05/13/2025 11:40 AM EDT) TRICHOMONAS VAGINALIS DETECTION BY PCR NOT DETECTED Not Detect [facility] BACTERIAL VAGINOSIS DETECTION BY PCR POSITIVE(A) Negative [facility] Comment:The BV organism targ ets of the Xpert Xpress MVP test can becommensal in women; Xpert Xpress MVP positive results forbacterial vaginosis should be considered in conjunction withother clinical and patient information to determine thedisease status. Organisms that are not detected by the XpertXpress MVP test have also been reported to be associatedwith BV and aerobic vaginitis.The Xpert Xpress MVP test performance has not been evaluatedin patients under the age of 14. CATE GROUP DETECTION BY PCR NOT DETECTED Not Detect [facility] Cate glab krusei PCR NOT DETECTED Not Detect [facility] Swab Vaginal structure / Unknown 05/13/2025 11:40 AM EDT 05/13/2025 1:23 PM EDT Aria Edmonds MD LAB MICROBIOLOGY - GENERAL OR DERABLES Final Result [facility] [address] [place] [phone] documented in this encounter Visit Diagnoses Diagnosis Acute cystitis with hematuria- Primary UTI symptoms Vaginal itching Pruritus of genital organs documented in this encounter Additional Health Concerns Assessment Noted Time PHQ-9 Depression Total Score: 15 023 11:36 AM EDT documented as of this encounter Care Teams Internal Sales Engineer Relationship Specialty Start Date End Date Radha Hankins MD [address] [place] [phone] PCP - General Family Medicine 05/10/17 documented as of this encounter
[2025-05-13 15:29] LABS: Bacterial Vaginosis PCR POSITIVE (Negative); Candida Group PCR NOT DETECTED (Not Detect); Candida glab krusei PCR NOT DETECTED (Not Detect); Trichomonas vaginalis PCR NOT DETECTED (Not Detect)
--- OUTSIDE RECORDS SUMMARY | 2025-05-13 17:18 | XMS_ITS | Encounter Summary ---
Author Organization [employer] Address [address] [facility] 7t [place] [address] Care Team Providers Care Mold Hoister Name Role Phone Radha Hankins MD Primary Care Provider + Reason for Visit * Reason Onset Date Comments ER Follow-up 08/06/2024 Encounter Details Date Type Department Care Team ([facility] st Contact Info) Description 08/06/2024 Telephone [facility] MEDICINE [address] [place], [place] [phone] Radha Hankins MD [address] [place], [place] [phone] ER Follow-up Social History Tobacco Use Types [...] Phan to triage below. Confirms seen at [facility] for asthma dn UTI sx. Ptdx [...] 08/07/2024 9:30 AM Kalyn Noland MD MEDICINE [facility] ' Video visit offer not recorded Positive Triage Question: * Patient wants to be seen * All higher-acuity triage questions were negative Care Advice Discussed: * Continue Treatment * Reasons To Call Back - You become worse * Telephone Encounter - rBody Phan - 08/06/2024 10:01 AM EST Patient calling to report ED visit on : Date: 08/04/24 Hospital: [facility] Seen for: Asthma Attack Symptom: Cough Outcome: Talk to a nurse or provider within 15 minutes Reason: Any trouble breathing through the mouth documented in this encounter Plan of Treatment Not on file documented as of this encounter Visit Diagnoses Not on filedocumented in this encounter Additional Health Concerns Assessment Noted Time PHQ-9 Depression Total Score: 15 023 11:36 AM EDT documented as of this encounter Care Teams Mold Hoister Relationship Specialty Start Date End Date Radha Hankins MD [address] [place] [phone] PCP - General Family Medicine 05/10/17 documented as of this encounter
--- OUTSIDE RECORDS SUMMARY | 2025-05-13 17:18 | XMS_ITS | Encounter Summary ---
Author Organization [employer] Address 75 [facility] 7t [place] [address] Care Team Providers Care Carrier Loader Name Role Phone Radha Hankins MD Primary Care Provider + Encounter Details Date Type Department Care Team (Late st Contact Info) Description 11/16/2022 Orders Only [facility] CHC MED & PEDS [address] [place] [address] Sheela Williamson LPN Social History Tobacco Use [...] as of this encounter Plan of Treatment Not on file documented as of this encounter Visit Diagnoses Not on filedocumented in this encounter Care Teams Carrier Loader Relationship Specialty Start Date End Date Radha Hankins MD [address] [place] [phone] PCP - General Family Medicine 05/10/17 documented as of this encounter
--- OUTSIDE RECORDS SUMMARY | 2025-05-13 17:18 | XMS_ITS | Clinical Summary ---
Author Organization [employer] Address 75 [facility] 7t [place] [address] Care Team Providers Care Electric Clock Mechanic Name Role Phone Radha Hankins MD Primary Care Provider + Allergies Active Allergy Reactions Criticality Noted Date Comments Morphine Anaphylaxis High 11/20/2014 Medications dextran 70-hypromellose (artificial tears) 0.1-0.3 % ophthalmic solution INSTILL 1 DROP INTO EACH EYE 3 TO 4 TIMES A DAY 30 mL 3 07/10/20 23 Active betamethasone valerate (Valisone) 0.1 % cream Apply 1 Application. topically Once per day. 15 g 3 04/25/20 24 Active Diclofenac Sodium 1 % gel Apply 2 g topically if needed in the morning and at bedtime (pain). 150 g 2 04/25/20 24 Active albuterol (2.5 MG/3ML) 0.083% nebulizer [...] at bedtime (pain and swelling). 30 g 08/07/20 24 Active amLODIPine (Norvasc) 5 MG tabletIndications: Essential hypertension TAKE 1 TABLET BY MOUTH EVERY EVENING 90 tablet 3 10/07/19 25 Active ibuprofen 600 MG tablet TAKE 1 TABLET BY MOUTH EVERY 6 HOURS WITH FOOD NEEDED FOR PAIN 120 tablet 10/23/19 25 Active cromolyn (Opticrom) 4 % ophthalmic solutionIndication s:Allergic conjunctivitis of both eyes Administer 1 drop into both eyes 4 times daily. 10 mL 3 11/22/19 25 Active venlafaxine XR (Effexor XR) 75 MG 24 hr capsuleIndications :Anxiety TAKE 1 CAPSULE BY MOUTH EVERY MORNING WITH FOOD 90 capsule 1 12/06/19 25 Active levothyroxine (Synthroid, Levoxyl) 100 MCG tabletIndications: Acquired hypothyroidism TAKE 1 TABLET BY MOUTH EVERY MORNING 90 tablet 1 12/06/19 25 Active topiramate (Topamax) 25 MG tablet Take 1 tablet (25 mg) by mouth at bedtime. 30 tablet 11 12/31/19 25 026 Active baclofen (Lioresal) 10 MG tabletIndications: Chronic bilateral low back pain with right-sided sciatica TAKE 1 TABLET BY MOUTH THREE TIMES DAILY IN THE MORNING, EVENING, AND BEDTIME NEEDED FOR MUSCLE SPASMS 60 tablet 2 02/28/20 25 Active fexofenadine (Faviola) 180 MG tablet TAKE 1 TABLET BY MOUTH ONCE DAILY NEEDED FOR ALLERGY 30 tablet 3 03/11/20 25 Active fluticasone (Flonase) 50 MCG/ACT nasal sprayIndications:A llergic rhinitis, unspecified seasonality, unspecified trigger INSTILL 2 SPRAYS IN EACH NOSTRIL ONCE DAILY NEEDED FOR ALLERGIES 16 g 2 03/11/20 25 Active simvastatin (Zocor) 20 MG tablet Take 1 tablet (20 mg) by mouth at bedtime. 90 tablet 3 03/11/20 25 Active meclizine (Antivert) 25 MG tablet TAKE 1 TABLET BY MOUTH THREE TIMES DAILY NEEDED 60 tablet 5 04/07/20 25 Active sulfamethoxazole-t rimethoprim (Bactrim DS) 800-160 MG tabletIndications: Acute cystitis with hematuria Take 1 tablet by mouth 2 times daily for 3 days. 6 tablet 05/13/20 25 025 Active metroNIDAZOLE (Metrogel) 0.75 % vaginal gelIndications:BV (bacterial vaginosis) Insert into the vagina at bedtime for 7 days. 70 g 05/13/20 25 025 Active Active Problems Problem Noted Date Diagnosed Date [...] life style modifications, diet and referral to retail specialist. Recommended to decrease soda and sugary [...] booster and PCV is up-to-date. Follow-up with candle cutter Chronic neck pain 10/13/2022 Vertigo 10/13/2022 Chronic [...] Resolved Date Moderate persistent asthma with exacerbation 4 11/21/2024 Assessment & Plan (08/07/2024 12:32 PM [...] weight reduction I gave her information about [facility] weight reduction program. FU next appointment IFG [...] Encounters Date Type Department Care Team Description 05/13/2025 11:20 AM EDT Office Visit [facility] [address] [place] [address] Aria Edmonds MD Acute cystitis with hematuria (Primary Dx); UTI symptoms; Vaginal itching 05/13/2025 Results Follow-Up [facility] [address] [place] [address] Aria Edmonds MD POCT urinalysis dipstick manually resulted, Bacterial Vaginosis 05/13/2025 Refill [facility] [address] [place] [phone] Aria Edmonds MD Acute cystitis with hematuria 05/13/2025 Travel 04/07/2025 Refill [facility] [address] [place] [address] Radha Hankins MD 04/01/2025 Telephone [facility] [address] [place] [phone] Radha Hankins MD No Show 03/25/2025 Patient Outreach [facility] [address] [place] [phone] Radha Hankins MD Pre-visit Planning (SDOH screening completed on 01/12/2025) 03/10/2025 Refill [facility] [address] [place] [phone] Radha Hankins MD 03/09/2025 Refill [facility] [address] [place] [phone] Radha Hankins MD Allergic rhinitis, unspecified seasonality, unspecified trigger 02/27/2025 Refill [facility] [address], [place] [phone] Radha Hankins MD Chronic bilateral low back pain with right-sided sciatica 02/19/2025 Telephone [facility] [address] [place] [phone] Radha Hankins MD Record Request from Last 3 Months Immunizations Immunization Administration [...] (224 lb) 05/13/2025 11:39 AM EDT Height 152.4 cm (5') 11/21/2024 9:57 AM EDT Body Mass Index 43.75 11/21/2024 9:57 AM EDT Plan of Treatment Health Maintenance Due Date Last Done Comments [...] - Td or Tdap) 06/03/2023 06/03/2013, 02/12/2007 COVID-19 Vaccine ( season) 2025 09/06/2022, 01/28/2021, 12/31/2020 Influenza Vaccine (#1) 2025 , 08/12/2020, 05/17/2019, Additional history exists Depression Monitoring 05/24/2025 11/21/2024, 023 Diabetes: Hemoglobin A1C 11/21/2025 025, 11/21/2024, 10/09/2023, Additional history exists Mammogram 01/16/2026 01/16/2025, 06/0 03/2023, 02/02/2023, Additional history exists SDOH Screening 03/25/2026 03/25/2025 Tobacco Screening 05/13/2026 05/13/2025 Lipid Panel 11/21/2029 11/21/2024, 07/28, 12/23/2022 Hepatitis [...] Routine 05/13/2025 11:40 AM EDT UTI symptoms BI MAMMOGRAM SCREENING TOMOSYNTHESIS BILATERAL Routine 01/16/2025 10:30 AM EDT Encounter for screening mammogram for malignant neoplasm of breast LIPID PANEL WITH REFLEX TO DIRECT LDL Routine 11/21/2024 10:50 AM EDT Prediabetes Essential hypertension POCT GLYCATED HEMOGLOBIN, TOTAL Routine 11/21/2024 10:10 AM EDT Prediabetes HM COLONOSCOPY Routine 07/04/2018 from Last 3 Months or Most Recently Relevant to Health Maintenance Results * (ABNORMAL) POCT urinalysis dipstick manually [...] DETECTION BY PCR NOT DETECTED Not Detect [facility] BACTERIAL VAGINOSIS DETECTION BY PCR POSITIVE(A) Negative [facility] Comment:The BV organism targ ets [...] DETECTION BY PCR NOT DETECTED Not Detect [facility] Cate glab krusei PCR NOT DETECTED Not Detect [facility] Swab Vaginal structure / Unknown 05/13/2025 11:40 AM EDT 05/13/2025 1:23 PM EDT Aria Edmonds MD LAB MICROBIOLOGY - GENERAL OR DERABLES Final Result [facility] [address] [place] [phone] * BI Mammogram Screening Tomosynthesis Bilateral (01/16/2025 10:30 AM EDT) Anatomical Region Laterality Modality Breast Bilateral Mammography 01/16/2025 10:3 0 AM EDT Narrative 01/25/2025 9:02 AM EDT [facility] [address] [place] [address] Mammography Report Signed Patient: Apryl Phan MR#: [id number] : 1955 Acct:[id number] Age/Sex: 69 / F ADM Date: 01/16/25 Loc: HO.MAMMO Attending Dr: Radha Hankins MD Ordering Physician: Radha Hankins MD Results: 2Be nign Findings Date of Service: 01/16/25 Follow Up: 1 Year From [facility] Mammogram Procedure(s): MM tomosynthesis screening BI Accession Number(s): [id number] cc: Radha Hankins MD EXAMINATION: MM SCREENING DIGITAL BREAST TOMOSYNTHESIS, BILATERAL CLINICAL INFORMATION: Screening. Asymptomatic. COMPARISON: Mammography: Comparison is made with available priors TECHNIQUE: Digital breast mammography with tomosynthesis is performed in both the craniocaudal and mediolateral oblique views along with computer-aided detection (CAD). FINDINGS: There are scattered areas of fibroglandular density (ACR BI-RADS breast composition Category b). Bilateral reduction mammoplasty. Right marker clip. There are no significant masses, abnormal calcifications, or other abnormalities. MM/MM tomosynthesis screening BI IMPRESSION: No mammographic evidence of malignancy. Patient describes bilateral nipple redness which is stable for 17 years since her reduction mammoplasty. Recommend clinical evaluation. ASSESSMENT: BI-RADS BI-RADS 2 - Benign Findings RECOMMENDATION: Routine annual mammography screening. 1 year F/U This examination should not preclude the clinical evaluation of a suspicious palpable abnormality. This patient's information was entered into a reminder system with a target due date for their next mammogram. Electronically signed by: Radha Stanley DO 01/25/2025 08:59 AM EDT Dictated By: Radha Stanley DO Signed By: <Electronically signed by Radha Stanley DO in OV> 01/25/25 0859 DD/ 1030 TD/TT: 01/16/25 1104 Missionary Coordinator: Procedure Note Donotuseinterpreter, Image - [facility]/25/20[facility] [address] [place], [place] [address] Mammography Report Signed Patient: Bienvenido Phan#: [id number] : 1955cct:[id number] Age/Sex: 69 / FADM Date: 01/16/25 Loc: HO.MAMMO Attending Dr: Radha Hankins MD Ordering Physician: Radha Hankins MDResults: 2Be nign Findings Date of Service: 01/16/25Follow Up: 1 Year From Orig ina Mammogram Procedure(s): MM tomosynthesis screening BI Accession Number(s): [id number] cc: Radha Hankins MD EXAMINATION: MM SCREENING DIGITAL BREAST TOMOSYNTHESIS, BILATERAL CLINICAL INFORMATION: Screening. Asymptomatic. COMPARISON: Mammography: Comparison is made with available priors TECHNIQUE: Digital breast mammography with tomosynthesis is performed in both the craniocaudal and mediolateral oblique views along with computer-aided detection (CAD). FINDINGS: There are scattered areas of fibroglandular density (ACR BI-RADS breast composition Category b). Bilateral reduction mammoplasty. Right marker clip. There are no significant masses, abnormal calcifications, or other abnormalities. MM/MM tomosynthesis screening BI IMPRESSION: No mammographic evidence of malignancy. Patient describes bilateral nipple redness which is stable for 17 years since her reduction mammoplasty. Recommend clinical evaluation. ASSESSMENT: BI-RADS BI-RADS 2 - Benign Findings RECOMMENDATION: Routine annual mammography screening. 1 year F/U This examination should not preclude the clinical evaluation of a suspicious palpable abnormality. This patient's information was entered into a reminder system with a target due date for their next mammogram. Electronically signed by: Radha Stanley DO 01/25/2025 08:59 AM EDT RP Dictated By: Radha Stanley DO Signed By: <Electronically signed by Radha Stanley DO in OV> 01/25/25 0859 DD/ 1030 TD/TT: 01/16/25 1104 Missionary Coordinator: us Radha Hankins MD IMG BI PROCEDURES Final Result * (ABNORMAL) Lipid Panel with Reflex to Direct LDL (11/21/2024 10:50 AM EDT) Triglycerides 211(H) <150 mg/dL [facility] Comment:Desirable Triglyceri de: less than 150 mg/dLBorderline High Triglyceride 150-199 mg/dLHigh Triglyceride: 200-499 mg/dLVery High Triglyceride: greater than or equal to 5OO mg/dL Cholesterol 188 <200 mg/dL [facility] Comment:Desirable Cholestero l: less than 200 mg/dLBorderline High Cholesterol: 200-239 mg/dLHigh Cholesterol: greater than 239 mg/dL LDL Cholesterol Calculated 101(H) <100 mg/dL [facility] Comment:Desirable LDL: less than 100 mg/dLNear Optimal/Above Optimal LDL: 110- 129 mg/dLBorderline High LDL: 130-159 mg/dLHigh LDL: 160-189 mg/dLVery High LDL: greater than or equal to 190 mg/dL HDL Cholesterol 45 >40 mg/dL [facility] Comment:Desirable HDL: great er than 40 mg/dL Note: This HDL assay may give artificially low results in patients with liver disease. Blood 11/21/2024 10:5 0 AM EDT 11/21/2024 1:11 PM EDT us Radha Hankins MD LAB BLOOD ORDERABLES Fin al Result [facility] [address] [place] [phone] * (ABNORMAL) POCT HGB A1C (11/21/2024 10:10 AM EDT) Hemoglobin A1C 6.1(A) 4.0 - 6.0 % QC Media Lot # [id number] Lot# Expiration Date [id number] Blood 11/21/2024 10:1 0 AM EDT Radha Hankins MD POINT OF CARE TEST ENTER /EDIT ORDERABLES Final Result * (ABNORMAL) Colonoscopy (07/04/2018) Colonoscopy Abnormal( A) Normal Comment:repeat 5years Historical Provider HEALTH MAINTENANCE Edited Result - Final from Last 3 Months or Most Recently Relevant to Health Maintenance [facility] [employer] [place] [id number] Care Teams Electric Clock Mechanic Relationship Specialty Start Date End Date Radha Hankins MD [address] [place] [phone] PCP - General Family Medicine 05/10/17
--- OUTSIDE RECORDS SUMMARY | 2025-05-13 17:18 | XMS_ITS | Encounter Summary ---
Author Organization [employer] Address [address] [facility] [address]t [place] [address] Care Team Providers Care Hand Ornament Maker Name Role Phone Radha Hankins MD Primary Care Provider + Encounter Details Date Type Department Care Team (Late st Contact Info) Description 10/20/[address] [facility] [address] [place] [address] Sheela Willimason LPN Social History Tobacco Use Types Packs/Day [...] on filedocumented in this encounter Care Teams Hand Ornament Maker Relationship Specialty Start Date End Date Rdaha Hankins MD [address] [place] [address] PCP - General Family Medicine 05/10/17 documented as of this encounter
--- OUTSIDE RECORDS SUMMARY | 2025-05-13 17:18 | XMS_ITS | Encounter Summary ---
Author Organization [employer] Address [address] [facility] [address]t [place] [address] Care Team Providers Care Electronic Component Processor Name Role Phone Radha Hankins MD Primary Care Provider + Encounter Details Date Type Department Care Team (Late st Contact Info) Description 02/14/2023 Abstract [facility] [address] [place], [place] [phone] Radha Hankins MD [address] [place], [place] [phone] Social History Tobacco Use Types Packs/Day Years [...] documented as of this encounter Care Teams Electronic Component Processor Relationship Specialty Start Date End Date Radha Hankins MD [address] [place], [place] [phone] PCP - General Family Medicine 9/13/17 documented as of this encounter
--- OUTSIDE RECORDS SUMMARY | 2025-05-13 17:18 | XMS_ITS | Encounter Summary ---
Author Organization [employer] Address 75 [facility] [address]t [place] [address] Care Team Providers Care Oyster Shipper Name Role Phone Radha Hankins MD Primary Care Provider + Encounter Details Date Type Department Care Team (Late st Contact Info) Description 05/13/2025 Results Follow-Up [facility] [address] [place], [place] [phone] Aria Edmonds MD [address] [place], [place] [phone] POCT urinalysis dipstick manually resulted, Bacterial Vaginosis Social History Tobacco Use Types Packs/Day Years [...] the past 12 months, has t he [facility], gas, oil or water [employer] threatened to shut off services in your [...] encounter Miscellaneous Notes * Telephone Encounter - Nemo Witt RN - 05/13/2025 4:05 PM EDT Tc to pt via S ID: [id number] to let them know per [facility] provider Please inform Apryl her vaginal test was positive for a condition called bacterial vaginosis, which is an overgrowth of bacteria that can cause vaginal discomfort. I have sent her a 7 day prescription for a vaginal antibiotic cream to treat the condition. Please let her know it is not a sexually transmitted disease. . No answer, lvm to return call and ask to speak to [facility] nurses. [facility] nurse will re- attempt outreach in the AM. * Telephone Encounter - Nemo Witt RN - 05/13/2025 4:05 PM EDT ----- Message from Aria Edmonds MD sent at 05/13/2025 3:55 PM EDT ----- Please inform Apryl her vaginal test was positive for a condition called bacterial vaginosis, which is an overgrowth of bacteria that can cause vaginal discomfort. I have sent her a 7 day prescription for a vaginal antibiotic cream to treat the condition. Please let her know it is not asexually transmitted disease. ----- Message ----- From: Edgardo Quiroz [place] Sent: 05/13/2025 11:43 AM EDT To: Aria Edmonds MD documented in this encounter Plan of Treatment Not on file documented as of this encounter Visit Diagnoses Diagnosis BV (bacterial vaginosis)- Primary Unspecified vaginitis and vulvovaginitis documented in this encounter Additional Health Concerns Assessment Noted Time PHQ-9 Depression Total Score: 15 023 11:36 AM EDT documented as of this encounter Care Teams Oyster Shipper Relationship Specialty Start Date End Date Radha Hankins MD [address] [place] [phone] PCP - General Family Medicine 05/10/17 documented as of this encounter
--- OUTSIDE RECORDS SUMMARY | 2025-05-13 17:18 | XMS_ITS | Encounter Summary ---
Author Organization [employer] Address 75 [facility] 7t [place] [address] Care Team Providers Care Corporate Paralegal Name Role Phone Radha Hankins MD Primary Care Provider + Reason for Visit * Reason Onset Date Comments Appointment Request 04/10/2024 Encounter Details Date Type Department Care Team ([facility] st Contact Info) Description 04/10/[address] [facility] [address] [place], [place] [phone] Radha Hankins MD [address] [place], [place] [phone] Appointment Request Social History Tobacco Use Types [...] like a sooner appt than what the teletypewriter installer has offered documented in this encounter Plan of Treatment Not on file documented as of this encounter Visit Diagnoses Not on filedocumented in this encounter Additional Health Concerns Assessment Noted Time PHQ-9 Depression Total Score: 15 023 11:36 AM EDT documented as of this encounter Care Teams Corporate Paralegal Relationship Specialty Start Date End Date Radha Hankins MD [address] [place] [phone] PCP - General Family Medicine 05/10/17 documented as of this encounter
--- OUTSIDE RECORDS SUMMARY | 2025-05-13 17:18 | XMS_ITS | Encounter Summary ---
Author Organization [employer] Address 75 [facility] [address]t [place] [address] Care Team Providers Care Applications Coordinator Name Role Phone Radha Hankins MD Primary Care Provider + Encounter Details Date Type Department Care Team (Late st Contact Info) Description 12/19/2022 Orders Only [facility] [address] [place], [place] [phone] Sheela Williamson LPN Social History Tobacco Use [...] on filedocumented in this encounter Care Teams Applications Coordinator Relationship Specialty Start Date End Date Radha Hankins MD [address] [place] [address] PCP - General Family Medicine 05/10/17 documented as of this encounter
--- OUTSIDE RECORDS SUMMARY | 2025-05-13 17:18 | XMS_ITS | Encounter Summary ---
Author Organization [employer] Address [address] [facility] 7t [place] [address] Care Team Providers Care Stripping And Booking Machine Operator Name Role Phone Radha Hankins MD Primary Care Provider + Encounter Details Date Type Department Care Team (Late st Contact Info) Description 09/22/2022 Orders Only [facility] PEDS [address] [place], [place] [phone] Sheela Williamson LPN Social History Tobacco Use [...] on file documented as of this encounter Procedures Procedure [...] PM EST Narrative 10/19/2022 5:13 PM EST [address] [address] XRay Report Signed Patient: Apryl Phan MR#: [id number] : 1955 Acct:[id number] Age/Sex: 67 / F ADM Date: 10/17/22 Loc: [facility] Attending Dr: Sheela Crane DO Ordering Physician: Sheela Crane DO Date of Service: 10/17/22 Procedure(s): XR lumbar spine 2-3V Accession Number(s): [id number] cc: Sheela Crane DO EXAMINATION: XR LUMBOSACRAL [...] in OV> 10/19/22 1710 DD/ 1212 TD/TT: Education Faculty Member: Procedure Note Donotuseinterpreter, Image - 10/19/[address] [address] XRay Report Signed Patient: Apryl PhanMR#: [id number] : 1955cct:[id number] Age/Sex: 67 / FADM Date: 10/17/22 Loc: [facility] Attending Dr: Sheela Crane DO Ordering Physician: Sheela Crane DO Date of Service: 10/17/22 Procedure(s): XR lumbar spine 2-3V Accession Number(s): [id number] cc: Sheela Crane DO EXAMINATION: XR LUMBOSACRAL [...] in OV> 10/19/22 1710 DD/ 1212 TD/TT: Education Faculty Member: [facility] External Provider IMG XR PROCEDURES Final Result * XR Knee 3 Views Right (10/17/2022 12:12 PM EST) Anatomical Region Laterality Modality Lower Extremities, Knee Right Radiogra phic Imaging 10/17/2022 12:1 2 PM EST Narrative 10/19/2022 5:09 PM EST [place] [address] XRay Report Signed Patient: Apryl Phan MR#: [id number] : 1955 Acct:[id number] Age/Sex: 67 / F ADM Date: 10/17/22 Loc: HO.XRAY Attending Dr: Sheela Crane DO Ordering Physician: Sheela Crane DO Date of Service: 10/17/22 Procedure(s): XR knee RT 3V Accession Number(s): [id number] cc: Sheela Crane DO EXAMINATION: XR BILATERAL [...] signed by Zena Mahan MD in OV> 10/19/221706 DD/ 1212 TD/TT: Education Faculty Member: Procedure Note Donotuseinterpreter, Image - 10/19/[address] [address] XRay Report Signed Patient: Bienvenido Phan#: [id number] : 1955cct:[id number] Age/Sex: 67 / FADM Date: 10/17/22 Loc: [facility] Attending Dr: Sheela Crane DO Ordering Physician: Sheela Crane DO Date of Service: 10/17/22 Procedure(s): XR knee RT 3V Accession Number(s): [id number] cc: Sheela Crane DO EXAMINATION: XR BILATERAL [...] signed by Zena Mahan MD in OV> 10/19/221706 DD/ 1212 TD/TT: Education Faculty Member: us [facility] External Provider IMG XR PROCEDURES Final Result * XR Knee 3 Views Left (10/17/2022 12:12 PM EST) Anatomical Region Laterality Modality Lower Extremities, Knee Left Radiogra phic Imaging 10/17/2022 12:1 2 PM EST Narrative 10/19/2022 5:09 PM EST [address] [address] XRay Report Signed Patient: Apryl Phan MR#: [id number] : 1955 Acct:[id number] Age/Sex: 67 / F ADM Date: 10/17/22 Loc: HO.[facility] Attending Dr: Sheela Crane DO Ordering Physician: Sheela Crane DO Date of Service: 10/17/22 Procedure(s): XR knee LT 3V Accession Number(s): [id number] cc: Sheela Crane DO EXAMINATION: XR BILATERAL [...] signed by Zena Mahan MD in OV> 10/19/221706 DD/ 1212 TD/TT: Education Faculty Member: Procedure Note Donotuseinterpreter, Image - 10/19/[address] [address] XRay Report Signed Patient: Apryl PhanMR#: [id number] : 1955cct:[id number] Age/Sex: 67 / FADM Date: 10/17/22 Loc: [facility] Attending Dr: Sheela Crane DO Ordering Physician: Sheela Crane DO Date of Service: 10/17/22 Procedure(s): XR knee LT 3V Accession Number(s): [id number] cc: Sheela Crane DO EXAMINATION: XR BILATERAL [...] in OV> 10/19/22 1707 DD/ 1212 TD/TT: Education Faculty Member: us [facility] External Provider IMG XR PROCEDURES Final Result * XR Hand 3+ Views Left (10/17/2022 12:12 PM EST) Anatomical Region Laterality Modality Upper Extremities, Hand Left Radiogra phic Imaging 10/17/2022 12:1 2 PM EST Narrative 10/19/2022 5:06 PM EST [address] [address] XRay Report Signed Patient: Apryl Phan MR#: [id number] : 1955 Acct:[id number] Age/Sex: 67 / F ADM Date: 10/17/22 Loc: [facility] Attending Dr: Sheela Crane DO Ordering Physician: Sheela Crane DO Date of Service: 10/17/22 Procedure(s): XR hand LT min 3V Accession Number(s): [id number] cc: Sheela Crane DO EXAMINATION: XR hand [...] in OV> 10/19/22 1703 DD/ 1212 TD/TT: Education Faculty Member: Procedure Note Donotuseinterpreter, Image - 10/19/[address] [address] XRay Report Signed Patient: Bienvenido Phan#: [id number] : 1955cct:[id number] Age/Sex: 67 / FADM Date: 10/17/22 Loc: [facility] Attending Dr: Sheela Crane DO Ordering Physician: Sheela Crane DO Date of Service: 10/17/22 Procedure(s): XR hand LT min 3V Accession Number(s): [id number] cc: Sheela Crane DO EXAMINATION: XR hand [...] signed by Zena Mahan MD in OV> 10/19/221702 DD/ 1212 TD/TT: Education Faculty Member: us [facility] External Provider IMG XR PROCEDURES Final Result * XR Hand 3+ Views Right (10/17/2022 12:12 PM EST) Anatomical Region Laterality Modality Upper Extremities, Hand Right Radiogra phic Imaging 10/17/2022 12:1 2 PM EST Narrative 10/19/2022 5:06 PM EST [address] [address] XRay Report Signed Patient: Apryl Phan MR#: [id number] : 1955 Acct:[id number] Age/Sex: 67 / F ADM Date: 10/17/22 Loc: HO.CHRISTAAY Attending Dr: Sheela Crane DO Ordering Physician: Sheela Crane DO Date of Service: 10/17/22 Procedure(s): XR hand RT min 3V Accession Number(s): [id number] cc: Sheela Crane DO EXAMINATION: XR hand [...] signed by Zena Mahan MD in OV> 10/19/221702 DD/ 1212 TD/TT: Education Faculty Member: Procedure Note Donotuseinterpreter, Image - 10/19/[address] [address] XRay Report Signed Patient: Apryl PhanMR#: [id number] : 1955cct:[id number] Age/Sex: 67 / FADM Date: 10/17/22 Loc: HO.XRAY Attending Dr: Sheela Crane DO Ordering Physician: Sheela Crane DO Date of Service: 10/17/22 Procedure(s): XR hand RT min 3V Accession Number(s): [id number] cc: Sheela Crane DO EXAMINATION: XR hand [...] in OV> 10/19/22 1703 DD/ 1212 TD/TT: Education Faculty Member: [facility] External Provider IMG XR PROCEDURES Final Result documented in this encounter Visit Diagnoses Not on filedocumented in this encounter Care Teams Stripping And Booking Machine Operator Relationship Specialty Start Date End Date Radha Hankins MD [address] [place] [address] PCP - General Family Medicine 05/10/17 documented as of this encounter
--- OUTSIDE RECORDS SUMMARY | 2025-05-13 17:18 | XMS_ITS | Encounter Summary ---
Author Organization [employer] Address [address] [facility] [address] [place] [address] Care Team Providers Care Stem Processing Machine Operator Name Role Phone Radha Hankins MD Primary Care Provider + Encounter Details Date Type Department Care Team (Late st Contact Info) Description 12/05/2022 Telephone [facility] MEDICINE [address] [place], [place] [phone] Sara John LPN Social History Tobacco Use [...] on filedocumented in this encounter Care Teams Stem Processing Machine Operator Relationship Specialty Start Date End Date Radha Hankins MD [address] [place], [place] [phone] PCP - General Family Medicine 05/10/17 documented as of this encounter
--- OUTSIDE RECORDS SUMMARY | 2025-05-13 17:18 | XMS_ITS | Encounter Summary ---
Author Organization [employer] Address [address] [facility] [address] [place] [address] Care Team Providers Care Authorization Manager Name Role Phone Radha Hankins MD Primary Care Provider + Encounter Details Date Type Department Care Team (Latest Contact Info) Description 05/13/2025 Travel Social History Tobacco Use Types Packs/Day Years [...] documented as of this encounter Care Teams Authorization Manager Relationship Specialty Start Date End Date Radha Hankins MD [address] [place] [address] PCP - General Family Medicine 05/10/17 documented as of this encounter
--- OUTSIDE RECORDS SUMMARY | 2025-05-13 17:18 | XMS_ITS | Encounter Summary ---
Author Organization [employer] Address [address] [facility] [address]t [place] [address] Care Team Providers Care Agronomy Instructor Name Role Phone Radha Hankins MD Primary Care Provider + Reason for Visit * Reason Comments Med Refill Encounter Details Date Type Department Care Team (Late st Contact Info) Description 05/13/2025 Refill [facility] [address] [place] [address] Aria Edmonds MD [address] [place], [place] [phone] Acute cystitis with hematuria Social History Tobacco Use Types Packs/Day Years [...] as of this encounter Visit Diagnoses Diagnosis Acute cystitis with hematuria documented in this encounter Additional Health Concerns Assessment Noted Time PHQ-9 Depression Total Score: 15 023 11:36 AM EDT documented as of this encounter Care Teams Agronomy Instructor Relationship Specialty Start Date End Date Radha Hankins MD [address] [place] [phone] PCP - General Family Medicine 05/10/17 documented as of this encounter
== END 2025-05-13 13:24 | disposition home or self-care (01) ==
LOC: HO.HHCLNP 13:23
PROVIDERS: Visit Provider Internal Medicine
DX: R39.9 Unspecified symptoms and signs involving the genitourinary system (principal)
CPT/HCPCS: 81515; 87086; 87088; 87186

== ENCOUNTER 2025-07-14 10:18 | Outpatient (AMB) | payer OTHER, SELFPAY ==
[2025-07-14 10:25] VITALS: BP 140/76; PULSE 82; O2SAT 95; BMI 44.3
--- NOTE | 2025-07-14 10:25 | A.OFFVIS_ITS ---
Vital Signs 07/14/25 10:25 Height 5 ft Weight 227 lb BMI 44.3 BP 140/76 H Blood Pressure Location Rt brachial Position Sitting Pulse 82 Pulse Source Pulse Oximeter Pulse Oximetry (%) 95 Oxygen Delivery Method Room Air Intake Visit Reasons: Asthma Allergies morphine (MORPHINE) Allergy (Unknown, Verified 07/14/25 10:31) ANAPHYLAXIS HPI HPI Asthma: Details: 70-year-old lady, active 10-15 pack-year smoker followed for at least moderate persistent asthma and environmental allergies. She continues on Symbicort and albuterol MDI/nebs with good control of her asthma symptoms. She denies recent exacerbations. Her allergies are well controlled as needed Flonase and Zyrtec. Her immunologic workup that shows underlying allergies to ragweed. FORMERLY [facility], [facility] Medical History (Updated 10/11/24 @ 11:07 by Konstantin Luque MD) Vertigo Asthma Hypercholesteremia Hypothyroidism (acquired) HTN (hypertension) Surgical History (Updated 10/03/23 @ 11:11 by Kalyn Hurst) Hx of bilateral breast reduction surgery Hx of section Social History (Updated 10/11/24 @ 10:48 by Sheela Crowe [facility]) Household Members: Family Patient Tobacco Use Status: Current everyday Tobacco user Tobacco use type: Cigarette Cigarettes Per Day: 5 Years Smoked: started age 19, Current occupational status: unemployed Review of Systems Const Denies daytime sleepiness, Denies excessive sweating, Denies fatigue, Denies fever(s), Denies lethargy, Denies malaise, Denies night sweats, Denies snoring and Denies weight loss Eyes Denies blurry vision and Denies itchy eyes ENT Denies nasal congestion, Denies post nasal drip, Denies sinus pain, Denies sinus pressure and Denies other ( Thrush) Card Denies chest pain, Denies pedal edema, Denies dyspnea, Denies orthopnea and Denies paroxysmal nocturnal dyspnea Resp Denies cough, Denies hemoptysis, Denies excessive phlegm production, Denies dyspnea, Denies snoring and Denies wheezing GI Denies abdominal pain and Denies heartburn Musc Denies myalgias, Denies arthralgias and Denies joint swelling Skin/Breast Denies rash Neuro Denies memory loss and Denies seizure-like activity Psych Denies abnormal sleep pattern, Denies anxiety and Denies memory loss Endo Denies excessive sweating, Denies fatigue and Denies heat intolerance Sam/Lymph Denies easy bruising Aller/Immun Denies itchy eyes, Denies seasonal rhinorrhea and Denies wheezing Physical Exam Vital Signs: Last Vital Signs Pulse 82 07/14/25 10:25 BP 140/76 H 07/14/25 10:25 Pulse Ox 95 07/14/25 10:25 Oxygen Delivery Method Room Air 07/14/25 10:25 BMI result Body Mass Index 44.3 Const General: no acute distress and alert Nutritional Appearance: obese Orientation/consciousness: Other orientation findings ( oriented) HEENT Head: Yes atraumatic Eyes General: appearance normal, both eyes and all related structures Sclerae: sclerae normal EOM: EOMs intact bilaterally Neck Neck: Yes supple Lymphatic: no lymphadenopathy noted Resp Effort & Inspection: normal respiratory effort and no use of accessory muscles Auscultation: clear to auscultation bilaterally Cardio Rate: regular rate Rhythm: regular rhythm Heart sounds: no gallops, no murmurs and no rubs Skin General skin exam: other ( warm) Extrem General: No clubbing, No cyanosis and No edema Assessment & Plan Assessment & Plan (1) Asthma: Code(s): J45.909 - Unspecified asthma, uncomplicated Category: Medical Plan: Well controlled on Symbicort and albuterol MDI/nebs. Continue current regimen. (2) Environmental allergies: Code(s): Z91.09 - Other allergy status, other than to drugs and biological substances Category: Medical Plan: Well controlled on Flovent and Zyrtec. Continue current regimen. Coding Level of Care Code Est Pt Level 4 (91456) Complex EM visit Add On G2211 Diagnoses Asthma J45.909 Environmental allergies Z91.09
== END 2025-07-14 10:39 | disposition home or self-care (01) ==
LOC: HO.HPS 10:19
PROVIDERS: PCP Internal Medicine; Visit Provider Internal Medicine Pulmonary Disease
DX: J45.909 Unspecified asthma, uncomplicated (principal); Z91.09 Other allergy status, other than to drugs and biological substances
CPT/HCPCS: 99214; G2211

== ENCOUNTER → 2025-07-14 10:18 | Outpatient (BNVA) | payer OTHER, SELFPAY | PROVIDERS: PCP Internal Medicine; Visit Provider Internal Medicine Pulmonary Disease | DX: J45.909 Unspecified asthma, uncomplicated (principal); Z91.09 Other allergy status, other than to drugs and biological substances | CPT/HCPCS: 99212 ==

== ENCOUNTER 2025-08-26 20:42 | Emergency (ER) | payer OTHER, SELFPAY ==
--- NOTE | 2025-08-26 | ECG_ITS ---
Test Reason : CP Blood Pressure : */* mmHG Vent. Rate : 78 BPM Atrial Rate : 78 BPM P-R Int : 192 ms QRS Dur : 98 ms QT Int : 410 ms P-R-T Axes : -2 27 101 degrees QTcB Int : 467 ms Normal sinus rhythm Incomplete right bundle branch block Nonspecific ST and T wave abnormality Abnormal ECG When compared with ECG of 04-Aug-2024 22:35, No significant change was found Referred By: Generic ED Physician Electronically Signed By: CAIO CROOK
--- NOTE | ~2025-08-26 | XR_ITS ---
CLINICAL HISTORY: asthma 2 view chest x-ray Comparison: 08/04/2024 Findings: Lungs are clear without acute infiltrates. No pneumothorax. Heart size enlarged. No acute bony abnormalities. Impression: No acute processes This document has been electronically signed by: Sukhdeep Grimaldo MD on 08/26/2025 21:37:37
[2025-08-26 20:54] VITALS: BP 133/62; PULSE 85; RESP 20; TEMP 36.6; O2SAT 92; BMI 46.1
[2025-08-26 21:28] LABS: Hematocrit 42.0 % (37.0-47.0); Hemoglobin 13.7 g/dl (12.0-16.0); Imm Gran Abs Auto 0.01 X10*3/uL (0.00-0.03); Imm Gran Pct Auto 0.1 % (0.0-0.4); Lymphocytes Absolute Auto 2.2 X10*3/uL (1.2-4.9); MANUAL DIFF FLAG NO; Mean Corpuscular HGB Conc 32.6 g/dl (31.0-35.0); Mean Corpuscular Hemoglobin 29.0 pg (27.0-33.0); Mean Corpuscular Volume 89.0 fL (80.0-98.0); NRBC Abs Auto 0.000 X10*3/uL (0.0-0.012); NRBC Pct Auto 0.0 /100WBC (0.0-0.2); Platelet Count 200 X10*3/uL (160-400); Red Blood Count 4.72 X10*6/uL (4.20-5.50); White Blood Count 6.7 X10*3/uL (4.8-10.8)
--- NOTE | 2025-08-26 21:39 | ED_ITS ---
HPI - Asthma General Chief Complaint: Asthma Stated Complaint: chest pain/sob Time Seen by Provider: 08/27/25 00:10 Source: patient, RN notes reviewed and old records reviewed Mode of arrival: ambulatory Limitations: no limitations History of Present Illness ED Provider: Reanna BANSAL Narrative: [age] old female with a past medical history significant for asthma presents for evaluation of shortness of breath, body aches and cough. She reports that she ran out of her home nebulizer machine She reports being sick for the last 4 or 5 days. Denies any sick contacts pain She has nausea without vomiting pain Denies any chest pain pain Denies any leg swelling. Denies any recent travel She reports that she is not a diabetic Related Data Home Medications ?Medication ?Instructions ?Recorded ?Confirmed amlodipine 5 mg tablet 5 mg PO DAILY 12/14/22 cetirizine 10 mg tablet 10 mg PO DAILY PRN allergies 12/14/22 fluticasone propionate 50 spray intranasal 12/14/22 mcg/actuation nasal spray,suspension ketotifen fumarate 0.025 % (0.035 0 drp ophthalmic (ey e) 12/14/22 %) eye drops levothyroxine 88 mcg tablet 88 mcg PO DAILY 12/14/22 meclizine 25 mg tablet 25 mg PO TID PRN 12/14/22 simvastatin 20 mg tablet 20 mg PO BEDTIME 12/14/22 venlafaxine 75 mg capsule,extended 75 mg PO DAILY 11/26 05/20 release 24 hr albuterol sulfate 2.5 mg/3 mL mg continuous nebulizati on 10/11/24 (0.083 %) solution for nebulization Previous Rx's ?Medication ?Instructions ?Recorded bisacodyl 5 mg tablet,delayed 20 mg (4 x 5 mg) PO ONCE 1 day #4 10/03/23 release (Dulcolax (bisacodyl)) tabs polyethylene glycol 3350 17 238 g PO ONCE #238 grams 0 10/03/23 gram/dose oral powder (Miralax) docusate sodium 100 mg capsule 100 mg PO DAILY #30 cap s 02/16/24 cefuroxime axetil 500 mg tablet 500 mg PO BID #14 tabs 08/05/24 albuterol sulfate 90 mcg/actuation 2 puff inhalation Q 4-6H PRN 11/06/24 aerosol inhaler (Ventolin HFA) shortness of breath or wheezing #1 ea budesonide-formoterol HFA 160 2 puff PO BID #10.2 gram s 08/20/25 mcg-4.5 mcg/actuation aerosol inhaler albuterol sulfate 1.25 mg/3 mL 2.5 mg (6 mL) inhalatio n Q4-6H PRN 08/27/25 solution for nebulization shortness of breath or wheez ing #90 mL prednisone 20 mg tablet 40 mg (2 x 20 mg) PO DAILY # 10 tabs 08/27/25 Allergies Allergy/AdvReac Type Severity Reaction Status Date / Time morphine (MORPHINE) Allergy Unknown ANAPHYLAXIS Verified 08/26/25 20:56 Review of Systems 2 Constitutional: Constitutional: Reports body ache(s), Reports chills, Denies fever(s) and Denies headache(s) ENT: Denies vertigo, Denies dizziness and Denies headache(s) Cardiovascular: Cardiovascular: Denies chest pain, Reports dyspnea and Reports dyspnea on exertion Respiratory: Respiratory: Denies change in phlegm color, Denies chest congestion, Reports cough, Reports dyspnea, Reports dyspnea on exertion and Reports wheezing Gastrointestinal: Gastrointestinal: Denies abdominal pain, Denies nausea and Denies vomiting Musculoskeletal: Musculoskeletal: Denies back pain Integumentary/Breasts: Skin/Breast: Denies rash Neurologic: Denies vertigo, Denies dizziness and Denies headache(s) Allergic/Immunologic: Allergic/Immunologic: Reports wheezing [facility] Past Medical History Medical History (Updated 08/27/25 @ 00:19 by Attila Forte) Vertigo Asthma Hypercholesteremia Hypothyroidism (acquired) HTN (hypertension) Surgical History (Updated 10/03/23 @ 11:11 by Kalyn Hurst) Hx of bilateral breast reduction surgery Hx of section Social History Social History (Updated 10/11/24 @ 10:48 by Sheela Crowe Kaushik) Household Members: Family Patient Tobacco Use Status: Current everyday Tobacco user Tobacco use type: Cigarette Cigarettes Per Day: 5 Years Smoked: started age 19, Advance Directives: No Advance Directives Information Provided: No Do you have a plan to hurt others: No Plan Current occupational status: unemployed Physical Exam 2 Vital Signs: Vital Signs: Last Vital Signs Temp 98.0 F 08/27/25 00:30 Pulse 76 08/27/25 00:30 Resp 16 08/27/25 00:30 BP 123/62 08/27/25 00:30 Pulse Ox 91 L 08/27/25 00:30 O2 Del Method Room Air 08/27/25 00:30 BMI result Body Mass Index 46.1 Const: General: healthy appearing, comfortable, no acute distress, alert and awake Nutritional Appearance: well nourished Orientation/consciousness: p atient oriented x3 HEENT: Head: Yes normocephalic and Yes atraumatic Eyes: Eyelids: Yes eyelids normal Conjunctivae: conjunctivae normal S clerae: sclerae normal Corneas: corneas normal Pupils: Equal, round and reactive pupils present EOM: EOMs intact bilaterally Neck: Neck: Yes full ROM Resp: Other: That has mild but diffuse expiratory wheeze Effort & Inspection: normal respiratory effort, able to speak in complete sentences and not labored GI: Inspection: No distended Palpation (GI): Soft to palpation, not firm, nontender, no guarding and not rigid Skin: General skin exam: elasticity normal Neuro: General: patient oriented x3 Cranial nerves: Yes Equal, round and reactive pupils present and Yes Bilaterally intact EOM present Cognition (Neuro): normal cognition Course Course Course Narrative: RME, this is a rapid medical exam performed by Andrés Forte please refer to primary provider for complete H&P- 70-year-old female presents for evaluation of chest pain. Her symptoms seem most likely related to a respiratory illness as she complains of cough, congestion and shortness of breath. Her pain seems pleuritic. EKG was performed and we will check screening labs and viral swabs. Medical Decision Making Medical Decision Making MDM Narrative: 70-year-old female with a history of asthma presents for evaluation of shortness of breath, body aches. She did test positive for influenza, her vital signs are stable on arrival. She is afebrile. Chest x-ray does not show any evidence of pneumonia. Screening labs are without any concerning abnormalities. The patient denies chest pain, not entirely sure why a troponin was ordered from triage put in his within normal limits. EKG is Normal sinus rhythm with a rate of [address] segment elevation or depression. Differential Diagnosis Differential Diagnoses: The differential diagnosis associated with the presentation includes Influenza COVID-19 RSV Bronchitis Pneumonia Asthma Admission/Observation Consideration of admission/observation: Escalation of care including admission/observation considered Lab Data MDM Lab Attestation statement: I reviewed the patient's lab results. 08/26/25 21:22 08/26/25 21:22 Labs: Lab Results 08/26/25 Range/Units 21:22 WBC 6.7 (4.8-10.8) X10*3/uL RBC 4.72 (4.20-5.50) X10*6/uL Hgb 13.7 (12.0-16.0) g/dl Hct 42.0 (37.0-47.0) % MCV 89.0 (80.0-98.0) fL MCH 29.0 (27.0-33.0) pg MCHC 32.6 (31.0-35.0) g/dl RDW 14.1 (11.0-16.0) % Plt Count 200 (160-400) X10*3/uL MPV 11.1 (9.4-12.3) fL Immature Gran % (Auto) 0.1 (0.0-0.4) % Neut % (Auto) 57.3 (45-73) % Lymph % (Auto) 32.7 (20-40) % Concho % (Auto) 9.0 (2-11) % Eos % (Auto) 0.6 (0-4) % Baso % (Auto) 0.3 (0-2) % Lymph # (Auto) 2.2 (1.2-4.9) X10*3/uL [place] # (Auto) 0.6 (0.1-1.2) X10*3/uL Eos # (Auto) 0.0 (0.0-0.4) X10*3/uL Baso # (Auto) 0.0 (0.0-0.2) X10*3/uL Abs Immat Gran (auto) 0.01 (0.00-0.03) X10*3/uL Absolute Neuts (auto) 3.8 (2.0-8.3) x10*3/uL Absolute Nucleated RBC 0.000 (0.0-0.012) X10*3/uL Nucleated RBC % (auto) 0.0 (0.0-0.2) /100WBC Sodium 142 (135-145) mmol/L Potassium 3.8 (3.3-5.1) mmol/L Chloride 102 (96-108) mmol/L Carbon Dioxide 29 (22-29) mmol/L Anion Gap 15 (12-20) BUN 16 (9-16) mg/dL Creatinine 0.84 (0.5-1.4) mg/dL Estim Creat Clear Calc 71.0 Estimated GFR > 60 Random Glucose 111 (60-115) mg/dL Calcium 9.1 D (8.4-10.2) mg/dL Magnesium 2.2 (1.6-2.6) mg/dL Total Bilirubin 0.2 (0.0-1.0) mg/dL AST 54 H (5-31) U/L ALT 67 H (0-31) U/L Alkaline Phosphatase 85 (39-117) U/L Troponin I High Sens 3.0 (<3.5-17.0) ng/L Total Protein 7.4 (6.5-8.0) g/dL Albumin 4.5 (3.5-5.0) g/dL Lipase 18 (8-78) U/L Influenza Type A (PCR) POSITIVE A (Negative) Influenza Type B (PCR) NEGATIVE (Negative) RSV RNA Qual (PCR) NEGATIVE (Negative) SARS-CoV-2 RNA (RT-PCR) NEGATIVE (Negative) Radiology Impression Discussion of test interpretation with radiology: I have reviewed the radiologist's reading. Radiologist Impression: Findings: Lungs are clear without acute infiltrates. No pneumothorax. Heart size enlarged. No acute bony abnormalities. Impression: No acute processes This document has been electronically signed by: Sukhdeep Grimaldo MD on 08/26/2025 21:37:37 Discharge Plan Discharge Clinical Impression: Influenza A Patient Disposition: Home, Self-Care Instructions: Influenza (ED) Additional Instructions: Your workup in the ER today was reassuring. You did test positive for the flu Your chest x-ray did not show any evidence of pneumonia Take prednisone 40 mg daily for the next 5 days pain Continue to use albuterol as needed Prescriptions: New prednisone 20 mg tablet 40 mg PO DAILY Qty: 10 0RF albuterol sulfate 1.25 mg/3 mL solution for nebulization 2.5 mg inhalation Q4-6H PRN (Reason: shortness of breath or wheezing) Qty: 90 0RF No Action docusate sodium 100 mg capsule 100 mg PO DAILY Qty: 30 3RF budesonide-formoterol 160-4.5 mcg/actuation HFA aerosol inhaler 2 puff PO BID Qty: 10.2 6RF cefuroxime axetil 500 mg tablet 500 mg PO BID Qty: 14 0RF levothyroxine 88 mcg tablet 88 mcg PO DAILY simvastatin 20 mg tablet 20 mg PO BEDTIME meclizine 25 mg tablet 25 mg PO TID PRN fluticasone propionate 50 mcg/actuation spray,suspension intranasal amlodipine 5 mg tablet 5 mg PO DAILY ketotifen fumarate 0.025 % (0.035 %) drops 0 drp ophthalmic (eye) cetirizine 10 mg tablet 10 mg PO DAILY PRN (Reason: allergies) venlafaxine 75 mg capsule,extended release 24hr 75 mg PO DAILY bisacodyl [Dulcolax (bisacodyl)] 5 mg tablet,delayed release (DR/EC) 20 mg PO ONCE 1 Days Qty: 4 0RF Rx Instructions: take 4 tabs at noon the day before your colonoscopy polyethylene glycol 3350 [Miralax] 17 gram/dose powder 238 g PO ONCE Qty: 238 0RF Rx Instructions: As directed by gastroenterology department at [facility] albuterol sulfate 2.5 mg /3 mL (0.083 %) solution for nebulization continuous nebulization albuterol sulfate [Ventolin HFA] 90 mcg/actuation HFA aerosol inhaler 2 puff inhalation Q4-6H PRN (Reason: shortness of breath or wheezing) Qty: 1 6RF Print Language: Lebanese
[2025-08-26 21:41] LABS: Alanine Aminotransferase 67 U/L (0-31); Albumin Level 4.5 g/dL (3.5-5.0); Alkaline Phosphatase 85 U/L (39-117); Anion Gap 15 (12-20); Aspartate Amino Transferase 54 U/L (5-31); Blood Urea Nitrogen 16 mg/dL (9-16); Calcium 9.1 mg/dL (8.4-10.2); Carbon Dioxide 29 mmol/L (22-29); Chloride 102 mmol/L (96-108); Creatinine Clr Calc Pharmacy 71.0; Estimated Glomerular Filt Rate > 60; Lipase 18 U/L (8-78); Magnesium 2.2 mg/dL (1.6-2.6); Potassium 3.8 mmol/L (3.3-5.1); Sodium 142 mmol/L (135-145); Total Protein 7.4 g/dL (6.5-8.0)
[2025-08-26 21:48] LABS: Troponin-I High Sensitivity 3.0 ng/L (<3.5-17.0)
[2025-08-26 22:04] LABS: Resp Syncy Virus RNA Qual PCR NEGATIVE (Negative); SARS COV2 PCR INHOUSE NEGATIVE (Negative)
--- OUTSIDE RECORDS SUMMARY | 2025-08-27 00:16 | XMS_ITS | Encounter Summary ---
Author Organization [employer] Address [address] [facility] [address] [place] [address] Care Team Providers Care Quality Internship Name Role Phone Radha Hankins MD Primary Care Provider + Encounter Details Date Type Department Care Team (Late st Contact Info) Description 11/16/2022 Orders Only [facility] MED & PEDS [address] [place] [address] Sheela Williamson LPN Social History Tobacco Use [...] Care Team (Late st Contact Info) Description 09/05/2025 11:15 AM EST Office Visit [facility] MEDICINE [address] [place] [address] Radha Hankins MD [address] [place] [address] documented as of this encounter Visit Diagnoses Not on filedocumented in this encounter Care Teams Quality Internship Relationship Specialty Start Date End Date Radha Hankins MD [address] [place] [address] PCP - General Family Medicine 05/10/17 documented as of this encounter
--- OUTSIDE RECORDS SUMMARY | 2025-08-27 00:16 | XMS_ITS | Encounter Summary ---
Author Organization [employer] Address [address] [facility] [address] [place] [address] Care Team Providers Care Central Office Technician Name Role Phone Radha Hankins MD Primary Care Provider + Encounter Details Date Type Department Care Team ([facility] Contact Info) Description 10/20/2022 Orders Only [facility] CHC MED & PEDS [address] [place], [place] [phone] Sheela Williamson LPN Social History Tobacco Use [...] Description 09/05/2025 11:15 AM EST Office Visit [facility] MEDICINE [address] [place] [address] Radha Hankins MD [address] [place], [place] [phone] documented as of this encounter Visit Diagnoses Not on filedocumented in this encounter Care Teams Central Office Technician Relationship Specialty Start Date End Date Radha Hankins MD [address] [place] [address] PCP - General Family Medicine 05/10/17 documented as of this encounter
--- OUTSIDE RECORDS SUMMARY | 2025-08-27 00:16 | XMS_ITS | Encounter Summary ---
Author Organization [employer] Address [address] [facility] [address]t [place] [address] Care Team Providers Care Horticulture Professor Name Role Phone Radha Hankins MD Primary Care Provider + Reason for Visit * Reason Onset Date Comments ER Follow-up 08/06/2024 Encounter Details Date Type Department Care Team ([facility] st Contact Info) Description 08/06/2024 Telephone [facility] MEDICINE [address] [place], [place] [phone] Radha Hankins MD [address] [place], [place] [phone] ER Follow-up Social History Tobacco Use Types [...] Phan to triage below. Confirms seen at [facility] for asthma dn UTI sx. Ptdx [...] 08/07/2024 9:30 AM Kalyn Noland MD MEDICINE [facility] ' Video visit offer not recorded Positive Triage Question: * Patient wants to be seen * All higher-acuity triage questions were negative Care Advice Discussed: * Continue Treatment * Reasons To Call Back - You become worse * Telephone Encounter - Brody Phan - 08/06/2024 10:01 AM EST Patient calling to report ED visit on : Date: 08/04/24 Hospital: [facility] Seen for: Asthma Attack Symptom: Cough Outcome: Talk to a nurse or provider within 15 minutes Reason: Any trouble breathing through the mouth documented in this encounter Plan of Treatment Upcoming Encounters Date Type Department Care Team (Late st Contact Info) Description 09/05/2025 11:15 AM EST Office Visit [facility] MEDICINE [address] [place] [address] Radha Hankins MD [address] [place] [address] documented as of this encounter Visit Diagnoses Not on filedocumented in this encounter Additional Health Concerns Assessment Noted Time PHQ-9 Depression Total Score: 15 023 11:36 AM EDT documented as of this encounter Care Teams Horticulture Professor Relationship Specialty Start Date End Date Radha Hankins MD [address] [place] [phone] PCP - General Family Medicine 05/10/17 documented as of this encounter
--- OUTSIDE RECORDS SUMMARY | 2025-08-27 00:16 | XMS_ITS | Encounter Summary ---
Author Organization [employer] Address [address] [facility] [address] [place] [address] Care Team Providers Care Bone Char Kiln Operator Name Role Phone Radha Hankins MD Primary Care Provider + Encounter Details Date Type Department Care Team (Late st Contact Info) Description 12/05/2022 Telephone [facility] MEDICINE [address] [place] [phone] Sara John LPN Social History Tobacco Use [...] Description 09/05/2025 11:15 AM EST Office Visit [facility] MEDICINE [address] [place] [phone] Radha Hankins MD [address] [place] [address] [phone] documented as of this encounter Visit Diagnoses Not on filedocumented in this encounter Care Teams Bone Char Kiln Operator Relationship Specialty Start Date End Date Radha Hankins MD [address] [place] [phone] PCP - General Family Medicine 05/10/17 documented as of this encounter
--- OUTSIDE RECORDS SUMMARY | 2025-08-27 00:16 | XMS_ITS | Encounter Summary ---
Author Organization [employer] Address [address] [facility] 7t [place] [address] Care Team Providers Care Vendor Analyst Name Role Phone Rdaha Hankins MD Primary Care Provider + Reason for Visit * Reason Onset Date Comments Appointment Request 04/10/2024 Encounter Details Date Type Department Care Team ([facility] st Contact Info) Description 04/10/2024 Telephone [facility] MEDICINE [address] [place], [place] [phone] Radha Hankins MD [address] [place], [place] [phone] Appointment Request Social History Tobacco Use Types [...] like a sooner appt than what the junior copywriter has offered documented in this encounter Plan of Treatment Upcoming Encounters Date Type Department Care Team (Late st Contact Info) Description 09/05/2025 11:15 AM EST Office Visit [facility] MEDICINE [address] [place] [address] Radha Hankins MD [address] [place] [address] documented as of this encounter Visit Diagnoses Not on filedocumented in this encounter Additional Health Concerns Assessment Noted Time PHQ-9 Depression Total Score: 15 023 11:36 AM EDT documented as of this encounter Care Teams Vendor Analyst Relationship Specialty Start Date End Date Radha Hankins MD [address] [place], [place] [phone] PCP - General Family Medicine 05/10/17 documented as of this encounter
--- OUTSIDE RECORDS SUMMARY | 2025-08-27 00:16 | XMS_ITS | Encounter Summary ---
Author Organization [employer] Address [address] [facility] 7t [place] [address] Care Team Providers Care Supervisor Mill Name Role Phone Radha Hankins MD Primary Care Provider + Reason for Visit * Reason Comments Med Refill Encounter Details Date Type Department Care Team (Late st Contact Info) Description 05/13/[address] [facility] [address] [place] [address] Aria Edmonds MD [address] [place], [place] [phone] Acute cystitis with hematuria Social History Tobacco [...] AM EST Office Visit [facility] MEDICINE [address] [place] [phone] Radha Hankins MD [address] [place] [phone] documented as of this encounter Visit Diagnoses Diagnosis Acute cystitis with hematuria documented in this encounter Additional Health Concerns Assessment Noted Time PHQ-9 Depression Total Score: 15 023 11:36 AM EDT documented as of this encounter Care Teams Supervisor Mill Relationship Specialty Start Date End Date Radha Hankins MD [address] [place] [phone] PCP - General Family Medicine 05/10/17 documented as of this encounter
--- OUTSIDE RECORDS SUMMARY | 2025-08-27 00:17 | XMS_ITS | Encounter Summary ---
Author Organization [employer] Address [address] [facility] [address] [place] [address] Care Team Providers Care Fish Net Maker Name Role Phone Radha Hankins MD Primary Care Provider + Reason for Visit * Reason Onset Date Comments Prior Auth Prescription 08/20/2025 Encounter Details Date Type Department Care Team ([facility] st Contact Info) Description 08/20/2025 Telephone [facility] MEDICINE [address] [place], [place] [phone] Radha Hankins MD [address] [place], [place] [phone] Prior Auth Prescription Social History Tobacco Use Types Packs/Day Years [...] the past 12 months, has t he [employer], gas, oil or water company threatened to [...] encounter Miscellaneous Notes * Telephone Encounter - Alivia Zhang - 08/20/2025 9:18 AM EST Tc from [facility] needing a PA for medication below - Tirzepatide-Weight Management (Zepbound) 2.5 MG/0.5ML solution auto-injector documented in this encounter Plan of Treatment Upcoming Encounters Date Type Department Care Team (Late st Contact Info) Description 09/05/2025 11:15 AM EST Office Visit [facility] MEDICINE [address] [place], [place] [phone] Radha Hankins MD [address] [place] [address] documented as of this encounter Visit Diagnoses Not on filedocumented in this encounter Additional Health Concerns Assessment Noted Time PHQ-9 Depression Total Score: 15 023 11:36 AM EDT documented as of this encounter Care Teams Fish Net Maker Relationship Specialty Start Date End Date Radha Hankins MD [address] [place], [place] [phone] PCP - General Family Medicine 05/10/17 documented as of this encounter
--- OUTSIDE RECORDS SUMMARY | 2025-08-27 00:17 | XMS_ITS | Clinical Summary ---
Author Organization [employer] Address [address] [facility] [address] [place] [address] Care Team Providers Care Tire Debeader Name Role Phone Radha Hankins MD Primary [...] for wheezing. 75 mL 3 08/07/20 24 Active albuterol 108 (90 Base) MCG/ACT inhalerIndications [...] daily. 10 mL 3 11/22/19 25 Active topiramate (Topamax) 25 MG tablet Take 1 tablet (25 mg) by mouth at bedtime. 30 tablet 11 5 8:48 AM EST 12/31/19 25 026 Active simvastatin (Zocor) 20 MG tablet Take 1 tablet (20 mg) by mouth at bedtime. 90 tablet 3 03/11/20 25 Active meclizine (Antivert) 25 MG tablet TAKE 1 TABLET BY MOUTH THREE TIMES DAILY NEEDED 60 tablet 5 04/07/20 25 Active baclofen (Lioresal) 10 MG tabletIndications: Chronic bilateral low back pain with right-sided sciatica TAKE 1 TABLET BY MOUTH THREE TIMES DAILY IN THE MORNING, EVENING, AND BEDTIME NEEDED FOR MUSCLE SPASMS 60 tablet 2 5 8:48 AM EST 06/05/20 25 Active levothyroxine (Synthroid, Levoxyl) 100 MCG tabletIndications: Acquired hypothyroidism TAKE 1 TABLET BY MOUTH EVERY MORNING 90 tablet 1 06/17/20 25 Active venlafaxine XR (Effexor XR) 75 MG 24 hr capsuleIndications :Anxiety TAKE 1 CAPSULE BY MOUTH EVERY MORNING WITH FOOD 90 capsule 1 06/17/20 25 Active fluticasone (Flonase) 50 MCG/ACT nasal sprayIndications:A llergic rhinitis, unspecified seasonality, unspecified trigger INSTILL 2 SPRAYS IN EACH NOSTRIL ONCE DAILY NEEDED FOR ALLERGIES 16 g 2 5 8:48 AM EST 06/17/20 25 Active Tirzepatide-Weight Management (Zepbound) 2.5 MG/0.5ML solution auto-injector Inject 0.5 mL (2.5 mg) under the skin 1 (one) time per week. 2 mL 2 06/27/20 25 Active fexofenadine (Faviola) 180 MG tablet TAKE 1 TABLET BY MOUTH ONCE DAILY NEEDED FOR ALLERGIES 30 tablet 3 07/28/20 25 Active Active Problems Problem Noted Date Diagnosed Date Encounter for colorectal cancer screening 2024 Class 3 severe obesity due t o [...] life style modifications, diet and referral to storage specialist. Recommended to decrease soda and sugary [...] 11/25/2022 Essential hypertension 10/13/2022 Assessment & Plan (06/27/2025 3:49 PM EDT): Controlled, continue amlodipine same dose Counseled re low salt diet/increase moderate physical activity. Check home BP BIW and prn CP/OROPEZA/LOCO Non smoking patient. Follow-up in 6-month Assessment & Plan (11/21/2024 10:35 AM EDT): [...] with PCP Prediabetes 10/13/2022 Assessment & Plan (06/27/2025 3:50 PM EDT): A1c is at goal. I have discussed with patient regarding increasing physicial activity and decrease calorie intake Check A1c q6-12m She did not tolerate metformin which we added to help with weight loss, I will start her on Mounjaro Assessment & Plan (11/21/2024 10:38 AM EDT): [...] last OV note FU with labs in 3m Assessment & Plan (04/25/2024 12:08 PM EDT): [...] booster and PCV is up-to-date. Follow-up with borematic operator Chronic neck pain 10/13/2022 Vertigo 10/13/2022 Chronic venous insufficiency 10/13/2022 Assessment & Plan (04/25/2024 12:49 PM EDT): Advised to use compression stockings up to knee level. Advised regarding weight reduction. Cobalamin deficiency 01/29/2019 Assessment & Plan (04/25/2024 12:49 PM EDT): Recheck B12 levels. Tubular adenoma 08/31/2018 Assessment & Plan (06/27/2025 3:54 PM EDT): She was referred to [facility] 6 months ago, she has reportedly called them with limited success on scheduling appointment for colonoscopy. I gave her information again of [facility] to schedule appointment, will reach out to [facility] case worker to help her schedule this appointment. Assessment & Plan (12/30/2024 5:15 PM EDT): [...] PM EST): Patient educated [facility] Letter for housing will be [...] weight reduction I gave her information about [facility] weight reduction program. FU next appointment [facility] [...] Encounters Date Type Department Care Team Description 08/26/2025 Orders Only [facility] External Provider, [facility] 08/20/2025 Telephone [facility] [address] [place] [phone] Radha Hankins MD Prior Auth Prescription 08/18/2025 Telephone [facility] [address] [place] [phone] Radha Hankins MD Prior Authorization ([facility] PA: Zepbound) 07/24/2025 Refill [facility] [address] [place] [phone] Radha Hankins MD 07/07/2025 Telephone [facility] [address] [place] [phone] Radha Hankins MD Prior Authorization ([facility] PA: Zepbound) 07/07/2025 Telephone [facility] [address] [place] [phone] Radha Hankins MD 07/03/2025 Telephone [facility] [address] [place] [address] Radha Hankins MD [facility] Care team contact 06/27/2025 11:15 AM EDT Office Visit [facility] [address] [place] [phone] Radha Hankins MD Obesity, morbid (HCC) (Primary Dx); Prediabetes; Essential hypertension; Tubular adenoma; Encounter for vaccination; Encounter for immunization 06/27/2025 Travel 06/26/2025 Telephone [facility] [address] [place] [address] Radha Hankins MD chart prep 06/16/2025 Refill [facility] [address] [place] [phone] Radha Hankins MD Acquired hypothyroidism; Anxiety; Allergic rhinitis, unspecified seasonality, unspecified trigger 06/14/2025 Refill [facility] [address] [place], [place] [phone] Radha Hankins MD Allergic rhinitis, unspecified seasonality, unspecified trigger 06/04/2025 Refill [facility] [address] [place], [place] [phone] Radha Hankins MD Chronic bilateral low back pain with right-sided sciatica from Last 3 Months Immunizations Immunization Administration Dates Next Due Hep B, adult 05/07/2007,02/12/2007,03/21/2006 Influenza Injectable Quadriv alant Preservative Free IIV4 MDCK 08/12/2020 Influenza injectable quadriv alent IIV4 with preservative 05/23/2018,05/19/2017 Influenza injectable quadriv alent preservative free 05/17/2019 Influenza, High Dose Seasona l, Preservative Free 06/27/2025 Influenza, IIV3, injectable 05/19/2014, 1 Influenza, Split (incl. dolores fied surface antigen) 06/03/2013,2012 Influenza, seasonal, injecta ble, preservative free 11/21/2024 Pfizer Covid-19 Vaccine 12+ 06/27/2025 TD (adult), 2 Lf tetanus tox oid, [...] Sign Reading Time Taken Comments Blood Pressure 120/70 06/27/2025 10:56 AM EDT Pulse 79 06/27/2025 10:56 AM EDT Temperature 37 C (98.6 F) 06/27/2025 10:56 AM EDT Respiratory Rate 18 06/27/2025 10:56 AM EDT Oxygen Saturation 93% 06/27/2025 10:56 AM EDT Inhaled Oxygen Concentration - - Weight 104 kg (229 lb 6.4 oz) 06/27/2025 10:56 A M EDT Height 152.4 cm (5') 06/27/2025 10:56 AM EDT Body Mass Index 44.8 06/27/2025 10:56 AM EDT Plan of Treatment Upcoming Encounters Date Type Department Care Team (Late st Contact Info) Description 09/05/2025 11:15 AM EST Office Visit [facility] [address] [place] [phone] Radha Hankins MD [address] [place] [address] Health Maintenance Due Date Last Done Comments CT Colonography 1957 FIT DNA/Cologuard 1957 FIT 1955 FOBT 1955 Sigmoidoscopy 1957 Alcohol/Substance Use Screening 1969 Hepatitis C Screening 1975 Pneumococcal Vaccine: 50+ Years (1 of 2 - PCV) 1976 RSV Patients and Patients Aged 60 years or older (1 - Risk 50-74 years 1-dose series) 2007 Zoster Vaccines (1 of 2) 2007 Colonoscopy 07/04/2021 07/04/2018 Colorectal Cancer Screening 07/04/2021 DTaP/Tdap/Td Vaccines (2 - Td or Tdap) 06/03/2023 06/03/2013, 02/12/2007 Depression Monitoring 05/24/2025 11/21/2024, 023 COVID-19 Vaccine ( season) 2025 06/27/2025, 09/06/2022, 01/28/2021, Additional history exists Mammogram 01/16/2026 01/16/2025, 06/03/2023, 02/02/2023, Additional history exists SDOH Screening 03/25/2026 03/25/2025 Diabetes: Hemoglobin A1C 06/27/2026 025, 11/21/2024, 11/21/2024, Additional history exists Tobacco Screening 06/27/2026 06/27/2025 Lipid Panel 11/21/2029 11/21/2024, 07/28, 12/23/2022 Hepatitis B Vaccines Completed 05/07/2007, 02/12/2007, 03/21/2006 Influenza Vaccine Completed 06/27/2025, , 08/12/2020, Additional history exists HIB Vaccines Aged Out [...] Name Priority Date/Time Associated Diagnosis Comments XR CHEST 2 VIEWS Routine 08/26/2025 9:37 PM EST HIGH SENSITIVITY TROPONIN I Routine 08/26/2025 9:22 PM EST LIPASE Routine 08/26/2025 9:22 PM EST MAGNESIUM Routine 08/26/2025 9:22 PM EST COMPREHENSIVE METABOLIC PANEL Routine 08/26/2025 9:22 PM EST CBC WITH AUTO DIFFERENTIAL Routine 08/26/2025 9:22 PM EST SARS COV2/INFLUENZA A/B AND RSV RNA QL NAAT Routine 08/26/2025 9:22 PM EST POCT GLYCATED HEMOGLOBIN, TOTAL Routine 06/27/2025 11:36 AM EDT Prediabetes POCT GLUCOSE (CPT-21223) Routine 06/27/2025 11:06 AM EDT Prediabetes BI MAMMOGRAM SCREENING TOMOSYNTHESIS BILATERAL Routine 01/16/2025 10:30 AM EDT Encounter for screening mammogram for malignant neoplasm of breast LIPID PANEL WITH REFLEX TO DIRECT LDL Routine 11/21/2024 10:50 AM EDT Prediabetes Essential hypertension HM COLONOSCOPY Routine 07/04/2018 from Last 3 Months or Most Recently Relevant to Health Maintenance Results * XR Chest 2 Views (08/26/2025 9:37 PM EST) Anatomical Region Laterality Modality Chest Radiographic Becca ging 08/26/2025 9:37 PM EST Narrative 08/26/2025 9:39 PM EST [address] [address] XRay Report Signed Patient: Apryl Phan MR#: [id number] : 1955 Acct:[id number] Age/Sex: 70 / F ADM Date: 08/26/25 Loc: .ED Attending Dr: Ordering Physician: Generic ED Physician Date of Service: 08/26/25 Procedure(s): XR chest 2V Accession Number(s): [id number] cc: Radha Hankins MD; Generic ED Physician Reason for Exam: asthma CLINICAL HISTORY: asthma 2 view chest x-ray Comparison: 08/04/2024 Findings: Lungs are clear without acute infiltrates. No pneumothorax. Heart size enlarged. No acute bony abnormalities. Impression: No acute processes This document has been electronically signed by: Sukhdeep Grimaldo MD on 08/26/2025 21:37:37 Dictated By: Sukhdeep Grimaldo MD Signed By: <Electronically signed by Sukhdeep Grimaldo MD in OV> 08/26/252137 DD/ 36 TD/TT: 08/26/252136 Build And Deployment Engineer: Procedure Note Donotuseinterpreter, Image - 08/26/[address] [address] XRay Report Signed Patient: Apryl PhanMR#: [id number] : 1955cct:[id number] Age/Sex: 70 / FADM Date: 08/26/25 Loc: .ED Attending Dr: Ordering Physician: Generic ED Physician Date of Service: 08/26/25 Procedure(s): XR chest 2V Accession Number(s): [id number] cc: Radha Hankins MD; Generic ED Physician Reason for Exam: asthma CLINICAL HISTORY: asthma 2 view chest x-ray Comparison: 08/04/2024 Findings: Lungs are clear without acute infiltrates. No pneumothorax. Heart size enlarged. No acute bony abnormalities. Impression: No acute processes This document has been electronically signed by: Sukhdeep Grimaldo MD on 08/26/2025 21:37:37 Dictated By: Sukhdeep Grimaldo MD Signed By: <Electronically signed by Sukhdeep Grimaldo MD in OV> 08/26/252137 DD/ 36 TD/TT: 08/26/252136 Build And Deployment Engineer: [facility] External Provider IMG XR PROCEDURES Edited Result - Final * High Sensitivity Troponin I (08/26/2025 9:22 PM EST) Pathologist [facility] TROPONIN I HIGH SENSITIVITY 3.0 <3.5 - 17.0 ng/L [facility] Comment:The Slater high sens itivity Troponin-I results should beused in conjunction with other diagnostic information suchas ECG, clinical observations and information, and patientsymptoms to aid in the diagnosis of [place]. 08/26/2025 9:22 PM EST 08/26/2025 9:25 PM EST Generic External Data Provider LAB BLOOD ORDERAB LES Final Result [facility] [address], [place] [phone] * (ABNORMAL) SARS-CoV-2 RNA, Influenza A/B, and RSV RNA, Ql NAAT (08/26/2025 9:22 PM EST) Pathologist [facility] Influenza A PCR POSITIVE(A) Negative [facility] Influenza B PCR NEGATIVE Negative [facility] Resp Syncy Virus RNA Qual PCR NEGATIVE Negative [facility] SARS COV2 PCR NEGATIVE Negative [facility] Comment:All test results mus t be correlated with clinical findings.Negative results do not preclude SARS-CoV2, influenza Avirus, influenza B virus and/or RSV infectionand should not be used as the sole basis for treatment orother patient management decisions. Negative results must becombined with clinical observations, patient history, andepidemiological information.This test has not been evaluated for monitoring treatment ofinfection.This test has been authorized by the FDA under an EmergencyUse Authorization (EUA) for use by authorized laboratories.Testing performed on the [employer] GeneXpert utilizingreal-time RT-PCR.All SARS CoV2 and positive influenza A/B results arereported to [facility]. 08/26/2025 9:22 PM EST 08/26/2025 9:25 PM EST us Generic External Data Provider LAB MICROBIOLOGY - GENERAL ORDERABLES Final Result [facility] [address] [place] [phone] * CBC auto differential (08/26/2025 9:22 PM EST) White Blood Count 6.7 4.8 - 10.8 X10*3/uL [facility] Red Blood Count 4.72 4.20 - 5.50 X10*6/uL [facility] Hemoglobin 13.7 12.0 - 16.0 g/dl [facility] Hematocrit 42.0 37.0 - 47.0 % [facility] Mean Corpuscular Volume 89.0 80.0 - 98.0 fL [facility] Mean Corpuscular Hemoglobin 29.0 27.0 - 33.0 pg [facility] Mean Corpuscular HGB Conc 32.6 31.0 - 35.0 g/dl [facility] Red Cell Distribution Width 14.1 11.0 - 16.0 % [facility] Platelet Count 200 160 - 400 X10*3/uL [facility] Mean Platelet Volume 11.1 9.4 - 12.3 fL [facility] Neutrophils Percent Auto 57.3 45 - 73 % [facility] Imm Gran Pct Auto 0.1 0.0 - 0.4 % [facility] Lymphocytes Percent Auto 32.7 20 - 40 % [facility] Monocytes Percent Auto 9.0 2 - 11 % [facility] Eosinophils Percent Auto 0.6 0 - 4 % [facility] Basophils Percent Auto 0.3 0 - 2 % [facility] NRBC Pct Auto 0.0 0.0 - 0.2 /100WBC [facility] Neutrophils Absolute Auto 3.8 2.0 - 8.3 x10*3/uL [facility] Imm Gran Abs Auto 0.01 0.00 - 0.03 X10*3/uL [facility] Lymphocytes Absolute Auto 2.2 1.2 - 4.9 X10*3/uL [facility] Monocytes Absolute Auto 0.6 0.1 - 1.2 X10*3/uL [facility] Eosinophils Absolute Auto 0.0 0.0 - 0.4 X10*3/uL [facility] Basophils Absolute Auto 0.0 0.0 - 0.2 X10*3/uL [facility] NRBC Abs Auto 0.000 0.0 - 0.012 X10*3/uL [facility] 08/26/2025 9:22 PM EST 08/26/2025 9:25 PM EST us Generic External Data Provider LAB BLOOD ORDERAB LES Final Result [facility] [address], [place] [phone] * Magnesium (08/26/2025 9:22 PM EST) Magnesium 2.2 1.6 - 2.6 mg/dL [facility] 08/26/2025 9:22 PM EST 08/26/2025 9:25 PM EST us Generic External Data Provider LAB BLOOD ORDERAB LES Final Result Performing Organization Address City/[facility]/ZIP Co de Phone Number [facility] [address] [place] [phone] * Lipase (08/26/2025 9:22 PM EST) Lipase 18 8 - 78 U/L [facility] 08/26/2025 9:2 2 PM EST 08/26/2025 9:25 PM EST Generic External Data Provider LAB BLOOD ORDERAB LES Final Result Performing Organization Address [facility] Co de Phone Number [facility] [address] [place] [phone] * (ABNORMAL) Comprehensive Metabolic Panel (08/26/2025 9:22 PM EST) Sodium 142 135 - 145 mmol/L [facility] Potassium 3.8 3.3 - 5.1 mmol/L [facility] Chloride 102 96 - 108 mmol/L [facility] Carbon Dioxide 29 22 - 29 mmol/L [facility] Anion Gap 15 12 - 20 [facility] Urea Nitrogen (BUN) 16 9 - 16 mg/dL [facility] Creatinine, Serum 0.84 0.5 - 1.4 mg/dL [facility] Creatinine Clr Calc Pharmacy 71.0 [facility] Comment:Provided height and weight: 152.4 cm,107.1 kg.eGFR (calculated from the MDRD study equation) and eCrCl(calculated from the Cockcroft-Gault equation) are based ondifferent parameters and may not yield comparable results.If eCrCl result is absurd, please check patient'sheight/weight. Estimated Glomerular Filt Rate >60 [facility] Comment:Chronic Kidney Disea se: Estimated GFR < 60 mL/min/1.65e9Bpcizb Kidney Disease: Estimated GFR < 15 mL/min/1.73m2 Glucose 111 60 - 115 mg/dL [facility] Calcium 9.1 8.4 - 10.2 mg/dL [facility] Bilirubin, Total 0.2 0.0 - 1.0 mg/dL [facility] Aspartate Amino Transferase 54(H) 5 - 31 U/L [facility] Alanine Aminotransferase 67(H) 0 - 31 U/L [facility] Total Protein 7.4 6.5 - 8.0 g/dL [facility] Albumin Level 4.5 3.5 - 5.0 g/dL [facility] Alkaline Phosphatase 85 39 - 117 U/L [facility] 08/26/2025 9:22 PM EST 08/26/2025 9:25 PM EST Generic External Data Provider LAB BLOOD ORDERAB LES Final Result [facility] [address] [place] [phone] * (ABNORMAL) POCT Hgb A1c (06/27/2025 11:36 AM EDT) Hemoglobin A1C 6.1(A) 4.0 - 5.7 % QC Media Lot # [id number] Lot# Expiration Date 5, Blood 06/27/2025 11:3 6 AM EDT Radha Hankins MD POINT OF CARE TEST ENTER /EDIT ORDERABLES Final Result * POCT Glucose (06/27/2025 11:06 AM EDT) Glucose Blood, POC 133 60 - 200 mg/dL QC Media Lot # [id number] Lot# Expiration Date 3, Blood Capillary blood specimen / Unknown 06/27/2025 11:06 AM EDT Radha Hankins MD POINT OF CARE TEST ENTER /EDIT ORDERABLES Final Result * BI Mammogram Screening Tomosynthesis Bilateral (01/16/2025 10:30 AM EDT) Anatomical Region Laterality Modality Breast Bilateral Mammography 01/16/2025 10:3 0 AM EDT Narrative 01/25/2025 9:02 AM EDT [facility] [address] [place] [address] Mammography Report Signed Patient: Apryl Phan MR#: [id number] : 1955 Acct:[id number] Age/Sex: 69 / F ADM Date: 01/16/25 Loc: HO.MAMMO Attending Dr: Radha Hankins MD Ordering Physician: Radha Hankins MD Results: 2Be nign Findings Date of Service: 01/16/25 Follow Up: 1 Year From Orig ina Mammogram Procedure(s): MM tomosynthesis screening BI Accession Number(s): [id number] cc: Radha Hankins MD EXAMINATION: MM SCREENING [...] 01/25/25 0859 DD/ 1030 TD/TT: 01/16/25 1104 Build And Deployment Engineer: Procedure Note Donotuseinterpreter, Image - 01/25/2025 [facility] [address] [place] [address] Mammography Report Signed Patient: Apryl PhanMR#: [id number] : 1955cct:[id number] Age/Sex: 69 / FADM Date: 01/16/25 Loc: HO.MAMMO Attending Dr: Radha Hankins MD Ordering Physician: Radha Hankins MDResults: 2Be nign Findings Date of Service: 01/16/25Follow Up: 1 Year From Orig ina Mammogram Procedure(s): MM tomosynthesis screening BI Accession Number(s): [id number] cc: Radha Hankins MD EXAMINATION: MM SCREENING [...] 01/25/25 0859 DD/ 1030 TD/TT: 01/16/25 1104 Build And Deployment Engineer: Radha Hankins MD IMG BI PROCEDURES Final Result * (ABNORMAL) Lipid Panel with Reflex to Direct LDL (11/21/2024 10:50 AM EDT) Triglycerides 211(H) <150 mg/dL [facility] Comment:Desirable Triglyceri de: less than 150 mg/dLBorderline High Triglyceride 150-199 mg/dLHigh Triglyceride: 200-499 mg/dLVery High Triglyceride: greater than or equal to 5OO mg/dL Cholesterol 188 <200 mg/dL [facility] Comment:Desirable Cholestero l: less than 200 mg/dLBorderline High Cholesterol: 200-239 mg/dLHigh Cholesterol: greater than 239 mg/dL LDL Cholesterol Calculated 101(H) <100 mg/dL [facility] Comment:Desirable LDL: less than 100 mg/dLNear Optimal/Above Optimal LDL: 110- 129 mg/dLBorderline High LDL: 130-159 mg/dLHigh LDL: 160-189 mg/dLVery High LDL: greater than or equal to 190 mg/dL HDL Cholesterol 45 >40 mg/dL [facility] Comment:Desirable HDL: great er than 40 mg/dL Note: This HDL assay may give artificially low results in patients with liver disease. Blood 11/21/2024 10:5 0 AM EDT 11/21/2024 1:11 PM EDT us Radha Hankins MD LAB BLOOD ORDERABLES Fin al Result [facility] [address], [place] [phone] * (ABNORMAL) Hm Colonoscopy (07/04/2018) Colonoscopy Abnormal( A) Normal Comment:repeat 5years Historical Provider HEALTH MAINTENANCE Edited Result - Final from Last 3 Months or Most Recently Relevant to Health Maintenance Insurance [facility] [employer] OPTIONS (HMO D-SNP) [place] [id number] Care Teams Tire Debeader Relationship Specialty Start Date End Date Radha Hankins MD [address] [place] [phone] PCP - General Family Medicine 05/10/17
--- OUTSIDE RECORDS SUMMARY | 2025-08-27 00:17 | XMS_ITS | Encounter Summary ---
Author Organization [employer] Address [address] [facility] 7t [place] [address] Care Team Providers Care Rotary Drier Name Role Phone Radha Hankins MD Primary Care Provider + Encounter Details Date Type Department Care Team (Late st Contact Info) Description 09/22/2022 Orders Only [facility] PEDS [address] [place] [address] Sheela Williamson LPN Social History Tobacco Use [...] Description 09/05/2025 11:15 AM EST Office Visit [facility] [address] [place], [place] [phone] Radha Hankins MD [address] [place] [address] documented as of this encounter Procedures Procedure [...] PM EST Narrative 10/19/2022 5:13 PM EST [address] [address] XRay Report Signed Patient: Apryl Phan MR#: [id number] 9240 : 1955 Acct:[id number] Age/Sex: 67 / F ADM Date: 10/17/22 Loc: HO.XRAY Attending Dr: Sheela Crane DO Ordering Physician: Sheela Crane DO Date of Service: 10/17/22 Procedure(s): XR lumbar spine 2-3V Accession Number(s): [id number] cc: Sheela Crane DO EXAMINATION: XR LUMBOSACRAL [...] in OV> 10/19/22 1710 DD/ 1212 TD/TT: Pediatrician Active Practice: Procedure Note Donotuseinterpreter, Image - 10/19/[address] [address] XRay Report Signed Patient: Apryl PhanMR#: [id number] 9240 : 1955cct:[id number] Age/Sex: 67 / FADM Date: 10/17/22 Loc: HO.XRAY Attending Dr: Sheela Crane DO Ordering Physician: Sheela Crane DO Date of Service: 10/17/22 Procedure(s): XR lumbar spine 2-3V Accession Number(s): [id number] cc: Sheela Crane DO EXAMINATION: XR LUMBOSACRAL [...] in OV> 10/19/22 1710 DD/ 1212 TD/TT: Pediatrician Active Practice: us [facility] External Provider IMG XR PROCEDURES Final Result * XR Knee 3 Views Right (10/17/2022 12:12 PM EST) Anatomical Region Laterality Modality Lower Extremities, Knee Right [facility] 10/17/2022 12:1 2 PM EST Narrative 10/19/2022 5:09 PM EST [address] [address] XRay Report Signed Patient: Apryl Phan MR#: [id number] 9240 : 1955 Acct:[id number] Age/Sex: 67 / F ADM Date: 10/17/22 Loc: HO.XRAY Attending Dr: Sheela Crane DO Ordering Physician: hSeela Crane DO Date of Service: 10/17/22 Procedure(s): XR knee RT 3V Accession Number(s): [id number] cc: Sheela Crane DO EXAMINATION: XR BILATERAL [...] in OV> 10/19/22 1707 DD/ 1212 TD/TT: Pediatrician Active Practice: Procedure Note Donotuseinterpreter, Image - 10/19/2022 [place] [address] XRay Report Signed Patient: Bienvenido Phan#: [id number] 9240 : 1955cct:[id number] Age/Sex: 67 / FADM Date: 10/17/22 Loc: CAROLYNE Attending Dr: Sheela Crane DO Ordering Physician: Sheela Crane DO Date of Service: 10/17/22 Procedure(s): XR knee RT 3V Accession Number(s): [id number] cc: Sheela Crane DO EXAMINATION: XR BILATERAL [...] in OV> 10/19/22 1707 DD/ 1212 TD/TT: Pediatrician Active Practice: us [facility] External Provider IMG XR PROCEDURES Final Result * XR Knee 3 Views Left (10/17/2022 12:12 PM EST) Anatomical Region Laterality Modality Lower Extremities, Knee Left Radiogra phic Imaging 10/17/2022 12:1 2 PM EST Narrative 10/19/2022 5:09 PM EST [address] [address] XRay Report Signed Patient: Apryl Phan MR#: [id number] 9240 : 1955 Acct:[id number] Age/Sex: 67 / F ADM Date: 10/17/22 Loc: CAROLYNE Attending Dr: Sheela Crane DO Ordering Physician: Sheela Crane DO Date of Service: 10/17/22 Procedure(s): XR knee LT 3V Accession Number(s): [id number] cc: Sheela Crane DO EXAMINATION: XR BILATERAL [...] MD in OV> 10/19/221706 DD/ 1212 TD/TT: Pediatrician Active Practice: Procedure Note Donotuseinterpreter, Image - 10/19/[address] [address] XRay Report Signed Patient: Apryl PhanMR#: [id number] 9240 : 1955cct:[id number] Age/Sex: 67 / FADM Date: 10/17/22 Loc: HO.XRAY Attending Dr: Sheela Crane DO Ordering Physician: Sheela Crane DO Date of Service: 10/17/22 Procedure(s): XR knee LT 3V Accession Number(s): [id number] cc: Sheela Crane DO EXAMINATION: XR BILATERAL [...] MD in OV> 10/19/221706 DD/ 1212 TD/TT: Pediatrician Active Practice: us [facility] External Provider IMG XR PROCEDURES Final Result * XR Hand 3+ Views Left (10/17/2022 12:12 PM EST) Anatomical Region Laterality Modality Upper Extremities, Hand Left Radiogra phic Imaging 10/17/2022 12:1 2 PM EST Narrative 10/19/2022 5:06 PM EST [address] [address] XRay Report Signed Patient: Apryl Phan MR#: [id number] 9240 : 1955 Acct:[id number] Age/Sex: 67 / F ADM Date: 10/17/22 Loc: HO.XRAY Attending Dr: Sheela Crane DO Ordering Physician: Sheela Crane DO Date of Service: 10/17/22 Procedure(s): XR hand LT min 3V Accession Number(s): [id number] cc: Sheela Crane DO EXAMINATION: XR hand [...] in OV> 10/19/22 1703 DD/ 1212 TD/TT: Pediatrician Active Practice: Procedure Note Donotuseinterpreter, Image - 10/19/2022 [facility] [address] [place] [address] XRay Report Signed Patient: Apryl PhanMR#: [id number] 9240 : 1955cct:[id number] Age/Sex: 67 / FADM Date: 10/17/22 Loc: HO.XRAY Attending Dr: Sheela Crane DO Ordering Physician: Sheela Crane DO Date of Service: 10/17/22 Procedure(s): XR hand LT min 3V Accession Number(s): [id number] cc: Sheela Crane DO EXAMINATION: XR hand [...] MD in OV> 10/19/221702 DD/ 1212 TD/TT: Pediatrician Active Practice: [facility] External Provider IMG XR PROCEDURES Final Result * XR Hand 3+ Views Right (10/17/2022 12:12 PM EST) Anatomical Region Laterality Modality Upper Extremities, Hand Right Radiogra phic Imaging 10/17/2022 12:1 2 PM EST Narrative 10/19/2022 5:06 PM EST [place] [address] XRay Report Signed Patient: Apryl Phan MR#: [id number] 9240 : 1955 Acct:[id number] Age/Sex: 67 / F ADM Date: 10/17/22 Loc: HO.CHRISTAAY Attending Dr: Sheela Crane DO Ordering Physician: Sheela Crane DO Date of Service: 10/17/22 Procedure(s): XR hand RT min 3V Accession Number(s): [id number] cc: Sheela Crane DO EXAMINATION: XR hand [...] MD in OV> 10/19/221702 DD/ 1212 TD/TT: Pediatrician Active Practice: Procedure Note Donotuseinterpreter, Image - 10/19/2022 [facility] [address] [place] [address] XRay Report Signed Patient: Bienvenido Phan#: [id number] 9240 : 1955cct:[id number] Age/Sex: 67 / FADM Date: 10/17/22 Loc: HO.XRAY Attending Dr: Sheela Crane DO Ordering Physician: Sheela Crane DO Date of Service: 10/17/22 Procedure(s): XR hand RT min 3V Accession Number(s): [id number] cc: Sheela Crane DO EXAMINATION: XR hand [...] in OV> 10/19/22 1703 DD/ 1212 TD/TT: Pediatrician Active Practice: [facility] External Provider IMG XR PROCEDURES Final Result documented in this encounter Visit Diagnoses Not on filedocumented in this encounter Care Teams Rotary Drier Relationship Specialty Start Date End Date Radha Hankins MD [address] [place] [address] PCP - General Family Medicine 05/10/17 documented as of this encounter
--- OUTSIDE RECORDS SUMMARY | 2025-08-27 00:17 | XMS_ITS | Encounter Summary ---
Author Organization [employer] Address [address] [facility] 7t [place] [address] Care Team Providers Care Radiator Cleaner Name Role Phone Radha Hankins MD Primary Care Provider + Encounter Details Date Type Department Care Team (Late st Contact Info) Description 02/14/2023 Abstract [facility] [address] [place], [place] [phone] Radha Hankins MD [address] [place], [place] [phone] Social History Tobacco Use Types Packs/Day Years [...] Description 09/05/2025 11:15 AM EST Office Visit [facility] [address] [place], [place] [phone] Radha Hankins MD [address] [place], [place] [phone] documented as of this encounter Visit Diagnoses Not on filedocumented in this encounter Additional Health Concerns Assessment Noted Time PHQ-9 Depression Total Score: 15 023 11:36 AM EDT documented as of this encounter Care Teams Radiator Cleaner Relationship Specialty Start Date End Date Radha Hankins MD [address] [place] [phone] PCP - General Family Medicine 05/10/17 documented as of this encounter
--- OUTSIDE RECORDS SUMMARY | 2025-08-27 00:17 | XMS_ITS | Encounter Summary ---
Author Organization [employer] Address [address] [facility] 7t [place] [address] Care Team Providers Care Development Chemist Name Role Phone Radha Hankins MD Primary Care Provider + Encounter Details Date Type Department Care Team (Late st Contact Info) Description 08/26/2025 Orders Only [facility] External Provider, [facility] Social History Tobacco Use Types Packs/Day Years [...] Description 09/05/2025 11:15 AM EST Office Visit [facility] [address] [place], [place] [phone] Radha Hankins MD [address] [place], [place] [phone] documented as of this encounter Procedures Procedure Name Priority Date/Time Associated Diagnosis Comments XR CHEST 2 VIEWS Routine 08/26/2025 9:37 PM EST HIGH SENSITIVITY TROPONIN I Routine 08/26/2025 9:22 PM EST SARS COV2/INFLUENZA A/B AND RSV RNA QL NAAT Routine 08/26/2025 9:22 PM EST documented in this encounter Results * XR Chest 2 Views (08/26/2025 9:37 PM EST) Anatomical Region Laterality Modality Chest Radiographic Becca ging 08/26/2025 9:37 PM EST Narrative 08/26/2025 9:39 PM EST [address] [address] XRay Report Signed Patient: Apryl Phan MR#: [id number] 9240 : 1955 Acct:[id number] Age/Sex: 70 / F ADM Date: 08/26/25 Loc: .ED Attending Dr: Ordering Physician: Generic ED Physician Date of Service: 08/26/25 Procedure(s): XR chest 2V Accession Number(s): [id number] cc: Radha aHnkins MD; Generic ED Physician Reason for Exam: [...] in OV> 08/26/252137 DD/ 36 TD/TT: 08/26/252136 Supervisor Ticket Sales: Procedure Note Donotuseinterpreter, Image - 08/26/[address] [address] XRay Report Signed Patient: Bienvenido Phan#: [id number] 9240 : 1955cct:[id number] Age/Sex: 70 / FADM Date: 08/26/25 Loc: .ED Attending Dr: Ordering Physician: Generic ED Physician Date of Service: 08/26/25 Procedure(s): XR chest 2V Accession Number(s): [id number] cc: Radha Hankins MD; Generic ED Physician [...] in OV> 08/26/252137 DD/ 36 TD/TT: 08/26/252136 Supervisor Ticket Sales: [facility] External Provider IMG XR PROCEDURES Edited Result - Final * (ABNORMAL) SARS-CoV-2 RNA, Influenza A/B, and RSV RNA, Ql NAAT (08/26/2025 9:22 PM EST) Influenza A PCR POSITIVE(A) Negative [facility] Influenza B PCR NEGATIVE Negative [facility] Resp Syncy Virus RNA Qual PCR NEGATIVE Negative [facility] SARS COV2 PCR NEGATIVE Negative [facility] Comment:All test results mus t [...] use by authorized laboratories.Testing performed on the [employer] Gene[employer]pert utilizingreal-time RT-PCR.All SARS CoV2 and positive influenza A/B results arereported to [facility]. 08/26/2025 9:22 PM EST 08/26/2025 9:25 PM EST us Generic External Data Provider LAB MICROBIOLOGY - GENERAL ORDERABLES Final Result Performing Organization Address [facility] Co de Phone Number [facility] [address] [place] [phone] * High Sensitivity Troponin I (08/26/2025 9:22 PM EST) TROPONIN I HIGH SENSITIVITY 3.0 <3.5 - 17.0 ng/L [facility] Comment:The [place] high sens itivity Troponin-I results should beused in conjunction with other diagnostic information suchas ECG, clinical observations and information, and patientsymptoms to aid in the diagnosis of CA. 08/26/2025 9:22 PM EST 08/26/2025 9:25 PM EST Generic External Data Provider LAB BLOOD ORDERAB LES Final Result Performing Organization Address [facility] Co de Phone Number [facility] [address] [place] [phone] documented in this encounter Visit Diagnoses Not on filedocumented in this encounter Additional Health Concerns Assessment Noted Time PHQ-9 Depression Total Score: 15 04/28/2 023 11:36 AM EDT documented as of this encounter Care Teams Development Chemist Relationship Specialty Start Date End Date Radha Hankins MD [address] [place] [phone] PCP - General Family Medicine 05/10/17 documented as of this encounter
--- OUTSIDE RECORDS SUMMARY | 2025-08-27 00:17 | XMS_ITS | Encounter Summary ---
Author Organization [employer] Address [address] [facility] [address]t [place] [address] Care Team Providers Care Contract Coordinator Name Role Phone Radha Hankins MD Primary Care Provider + Encounter Details Date Type Department Care Team (Late st Contact Info) Description 12/19/2022 Orders Only [facility] & PEDS [address] [place], [place] [phone] Sheela Williamson LPN Social History Tobacco Use [...] Description 09/05/2025 11:15 AM EST Office Visit [facility] MEDIC[facility] [address] [place], [place] [phone] Radha Hankins MD [address] [place], [place] [phone] documented as of this encounter Visit Diagnoses Not on filedocumented in this encounter Care Teams Contract Coordinator Relationship Specialty Start Date End Date Radha Hankins MD [address] [place] [address] PCP - General Family Medicine 05/10/17 documented as of this encounter
[2025-08-27 00:30] VITALS: BP 123/62; PULSE 76; RESP 16; TEMP 36.7; O2SAT 91
[2025-08-27] MEDS: Albuterol Sulfate 90 MCG 8 GM INHALER 4 PUFF INHALE (00:48)
== END 2025-08-27 00:53 | disposition home or self-care (01) ==
PROVIDERS: Emergency Provider Emergency Medicine; PCP Internal Medicine
DX: J10.1 Influenza due to other identified influenza virus with other respiratory manifestations (principal); Z72.0 Tobacco use; Z79.899 Other long term (current) drug therapy; Z03.818 Encounter for observation for suspected exposure to other biological agents ruled out
CPT/HCPCS: 71046; 80053; 83690; 83735; 84484; 85025; 87637; 93005; 99283; 99284

== ENCOUNTER → 2025-08-26 20:47 | Outpatient (BNV) | payer OTHER, SELFPAY | PROVIDERS: Emergency Provider Emergency Medicine; PCP Internal Medicine; Visit Provider Internal Medicine | DX: I45.10 Unspecified right bundle-branch block (principal) | CPT/HCPCS: 93010 ==

== ENCOUNTER → 2025-08-26 21:05 | Outpatient (BNV) | payer OTHER, SELFPAY | PROVIDERS: PCP Internal Medicine; Visit Provider Radiology Diagnostic Radiology | DX: J45.909 Unspecified asthma, uncomplicated (principal) | CPT/HCPCS: 71046 ==